=== PATIENT | male | born 1985 | race African-American/Black ===

== ENCOUNTER 2018-12-22 13:45 | Emergency (ER) | payer MEDICARE ==
[~2018-12-22] VITALS: Ht 175.3 cm; Wt 72.7 kg
[2018-12-22 13:49] VITALS: Ht 175.3 cm; Wt 72.7 kg
[2018-12-22] MEDS ORDERED: PREZISTA (13:52)
[2018-12-22 14:15] LABS: BASOPHILS 0.2 % (0-2); EOSINOPHILS 0.4 % (0-7); HEMATOCRIT 25.7 % (42.0-54.0); HEMOGLOBIN 8.1 g/dL (13.5-17.5); IMMATURE GRANULOCYTES 0.2 % (0-5); LYMPHOCYTES 16.9 % (15-50); MCH 27.7 pg (26.0-34.0); MCHC 31.5 g/dL (31.0-37.0); MEAN PLATELET VOLUME 11.4 fL (7.4-10.4); MONOCYTES 5.9 % (2-11); NEUTROPHILS 76.4 % (40-80); PLATELET COUNT 89 10x3/uL (130-400); RBC 2.92 10x6/uL (4.20-6.10); WBC 5.3 10x3/uL (4.8-10.8)
[2018-12-22 14:37] LABS: ALBUMIN 3.5 g/dL (3.4-5.0); ANION GAP 24.1 mmol/L (8-16); BILIRUBIN - TOTAL 0.67 mg/dL (0.2-1.3); CALCIUM 8.4 mg/dL (8.5-10.1); CARBON DIOXIDE 20.8 mmol/L (21.0-32.0); POTASSIUM - SERUM 4.9 mmol/L (3.5-5.1); PROTEIN - SERUM 8.1 g/dL (6.4-8.2)
[2018-12-22 14:58] LABS: PLATELET ESTIMATE DECREASED
[2018-12-22 15:18] LABS: APPEARANCE CLEAR (CLEAR); BILIRUBIN NEGATIVE (NEGATIVE); COLOR STRAW (YELLOW); GLUCOSE 50 mg/dL (NEGATIVE); KETONE NEGATIVE (NEGATIVE); NITRITE NEGATIVE (NEGATIVE); PROTEIN 2+ mg/dL (NEGATIVE); UROBILINOGEN NORMAL (NORMAL)
[2018-12-22 15:19] LABS: WHITE CELLS - URINE 0-5 /hpf (0-5)
[2018-12-22 15:20] LABS: BACTERIA FEW /hpf (NONE SEEN); EPITHELIAL CELLS 0-5 /hpf (0-5)
[2018-12-22] MEDS ORDERED: ZOFRAN ODT4 MG/UDTAB PO (16:18)
[2018-12-22 16:34] VITALS: BP 187/115
== END 2018-12-22 16:34 | disposition home or self-care (01) ==
LOC: D.ER 13:45
PROVIDERS: Emergency Medicine
DX: R11.10 Vomiting, unspecified (principal); R19.7 Diarrhea, unspecified; N18.6 End stage renal disease

== ENCOUNTER 2019-01-13 22:39 | Inpatient (IN) | payer MEDICARE ==
[~2019-01-13] VITALS: Ht 175.3 cm; Wt 69.5 kg
[~2019-01-13 22:39] MED LIST: PREZISTA; ZOFRAN ODT4 MG/UDTAB PO
[2019-01-13 23:29] LABS: ALBUMIN 3.1 g/dL (3.4-5.0); ALKALINE PHOSPHATASE 73 U/L (46-116); ALT (SGPT) 23 U/L (10-68); APTT 32.3 SECONDS (22.8-39.4); BILIRUBIN - TOTAL 0.27 mg/dL (0.2-1.3); CALC OSMOLALITY 298 mosm/kg (275-300); CALCIUM 8.4 mg/dL (8.5-10.1); CARBON DIOXIDE 24.4 mmol/L (21.0-32.0); CHLORIDE - SERUM 102 mmol/L (98-107); CREATININE - SERUM 18.8 mg/dL (0.6-1.3); GLUCOSE 102 mg/dL (74-106); INR 1.1 (0.85-1.17); PROTEIN - SERUM 6.9 g/dL (6.4-8.2); PROTIME 13.7 SECONDS (11.6-15.0); SODIUM 141 mmol/L (136-145); UREA NITROGEN 64 mg/dL (7-18); eGFR NON AFRICAN AMERICAN 3 mL/min (90-120)
[2019-01-13 23:42] LABS: BASOPHILS 0.2 % (0-2); EOSINOPHILS 0.8 % (0-7); HEMATOCRIT 18.7 % (42.0-54.0); HEMOGLOBIN 5.8 g/dL (13.5-17.5); IMMATURE GRANULOCYTES 0.2 % (0-5); LYMPHOCYTES 19.7 % (15-50); MCH 27.5 pg (26.0-34.0); MCV 88.6 fL (80.0-100.0); MEAN PLATELET VOLUME 10.6 fL (7.4-10.4); MONOCYTES 6.1 % (2-11); PLATELET COUNT 152 10x3/uL (130-400); RBC 2.11 10x6/uL (4.20-6.10); RDW 19.1 % (11.5-14.5)
[2019-01-13 23:52] LABS: CKMB 1.8 U/L (0.0-3.6); CREATINE KINASE 224 UL (21-232)
[2019-01-14] VITALS (17 sets, daily range): BP systolic 155–205; BP diastolic 89–121; Ht 175.3 cm; Wt 69.5 kg
[2019-01-14 00:08] LABS: TROPONIN-I 0.112 ng/mL (0.000-0.060)
[2019-01-14 01:05] LABS: PRO BNP 103951 pg/mL (0-125)
[2019-01-14 08:31] LABS: BASOPHILS 0.2 % (0-2); EOSINOPHILS 0.6 % (0-7); HEMATOCRIT 20.9 % (42.0-54.0); IMMATURE GRANULOCYTES 0.2 % (0-5); LYMPHOCYTES 19.3 % (15-50); MCH 27.7 pg (26.0-34.0); MCHC 31.1 g/dL (31.0-37.0); MCV 88.9 fL (80.0-100.0); MEAN PLATELET VOLUME 10.6 fL (7.4-10.4); MONOCYTES 6.1 % (2-11); NEUTROPHILS 73.6 % (40-80); PLATELET COUNT 147 10x3/uL (130-400); RBC 2.35 10x6/uL (4.20-6.10); RDW 18.5 % (11.5-14.5); WBC 6.5 10x3/uL (4.8-10.8)
[2019-01-14 09:00] LABS: HEMOGLOBIN 6.5 g/dL (13.5-17.5)
[2019-01-14 09:07] LABS: CARBON DIOXIDE 20.9 mmol/L (21.0-32.0); CREATININE - SERUM 18.1 mg/dL (0.6-1.3); MAGNESIUM - SERUM 2.6 mg/dL (1.8-2.4); PHOSPHOROUS 8.9 mg/dL (2.5-4.9)
[2019-01-14 09:08] LABS: POTASSIUM - SERUM 4.9 mmol/L (3.5-5.1)
[2019-01-14 09:09] LABS: TROPONIN-I 0.186 ng/mL (0.000-0.060)
[2019-01-14] MEDS ORDERED: NORVASC10 MG PO (11:01)
[2019-01-14] MEDS ORDERED: SENSIPAR30 MG PO (11:02)
[2019-01-14] MEDS ORDERED: MEGACE400 MG/10 PO (11:03)
[2019-01-14] MEDS ORDERED: RETROVIR100 MG PO (11:04)
[2019-01-14] MEDS ORDERED: EMTRIVA200 MG PO (11:07)
[2019-01-14] MEDS ORDERED: PREZISTA800 MG PO (11:11)
[2019-01-14] MEDS ORDERED: MIRALAX17 GM PO (11:13)
[2019-01-14 17:46] LABS: HEMATOCRIT 27.7 % (42.0-54.0); HEMOGLOBIN 9.2 g/dL (13.5-17.5)
[2019-01-14 18:02] LABS: % SATURATION 34 % (15-55); IRON 69 ug/dl (35-150); TOTAL IRON BIND CAPACITY 202 ug/dl (260-445); UNSAT IRON BIND CAPACITY 133 ug/dl (150-375)
[2019-01-14 18:40] LABS: TROPONIN-I 0.166 ng/mL (0.000-0.060)
[2019-01-15 03:30] VITALS: BP 153/90
[2019-01-15 06:44] LABS: ANION GAP 13.8 mmol/L (8-16); CALCIUM 8.2 mg/dL (8.5-10.1); POTASSIUM - SERUM 4.7 mmol/L (3.5-5.1)
[2019-01-15 06:45] LABS: CARBON DIOXIDE 29.9 mmol/L (21.0-32.0); CREATININE - SERUM 13.4 mg/dL (0.6-1.3)
[2019-01-15 07:20] LABS: BASOPHILS 0.2 % (0-2); EOSINOPHILS 1.6 % (0-7); HEMATOCRIT 26.2 % (42.0-54.0); HEMOGLOBIN 8.5 g/dL (13.5-17.5); IMMATURE GRANULOCYTES 0.2 % (0-5); LYMPHOCYTES 24.4 % (15-50); MCH 28.7 pg (26.0-34.0); MCHC 32.4 g/dL (31.0-37.0); MCV 88.5 fL (80.0-100.0); MEAN PLATELET VOLUME 10.8 fL (7.4-10.4); MONOCYTES 11.7 % (2-11); NEUTROPHILS 61.9 % (40-80); PLATELET COUNT 145 10x3/uL (130-400)
[2019-01-15 07:35] LABS: RBC 2.96 10x6/uL (4.20-6.10); WBC 4.4 10x3/uL (4.8-10.8)
[2019-01-15 09:00] VITALS: BP 133/92
[2019-01-15 12:17] VITALS: BP 128/86
[2019-01-15 18:11] VITALS: BP 128/86
[2019-01-15 20:00] VITALS: BP 122/80
[2019-01-16 00:30] VITALS: BP 128/83
[2019-01-16 05:00] VITALS: BP 117/76
[2019-01-16 05:27] LABS: BASOPHILS 0.3 % (0-2); EOSINOPHILS 0.5 % (0-7); HEMATOCRIT 27.3 % (42.0-54.0); HEMOGLOBIN 8.7 g/dL (13.5-17.5); IMMATURE GRANULOCYTES 0.3 % (0-5); LYMPHOCYTES 24.5 % (15-50); MCH 28.7 pg (26.0-34.0); MCHC 31.9 g/dL (31.0-37.0); MCV 90.1 fL (80.0-100.0); MEAN PLATELET VOLUME 10.3 fL (7.4-10.4); NEUTROPHILS 60.4 % (40-80); PLATELET COUNT 127 10x3/uL (130-400); RBC 3.03 10x6/uL (4.20-6.10); RDW 18.1 % (11.5-14.5); WBC 3.9 10x3/uL (4.8-10.8)
[2019-01-16 05:36] LABS: ANION GAP 14.1 mmol/L (8-16); CALCIUM 7.4 mg/dL (8.5-10.1); CARBON DIOXIDE 29.3 mmol/L (21.0-32.0); CREATININE - SERUM 12.1 mg/dL (0.6-1.3); POTASSIUM - SERUM 4.4 mmol/L (3.5-5.1)
[2019-01-16] MEDS ORDERED: EMTRIVA200 MG PO (09:45)
[2019-01-16] MEDS ORDERED: PREZISTA800 MG PO (09:45)
[2019-01-16] MEDS ORDERED: METOPROLOL TART50 MG PO (09:45)
[2019-01-16] MEDS ORDERED: RETROVIR100 MG PO (09:45)
[2019-01-16] MEDS ORDERED: CATAPRES0.2 MG PO (09:46)
[2019-01-16] MEDS ORDERED: HYDROCODON-ACE1 EAC7 PO (09:48)
[2019-01-16] MEDS ORDERED: RENAGEL800 MG PO (09:48)
[2019-01-16] MEDS ORDERED: PROTONIX40 MG PO (09:49)
[2019-01-16] MEDS ORDERED: CARAFATE1 G PO (09:49)
[2019-01-16] MEDS ORDERED: PEPCID40 MG PO (09:50)
[2019-01-16 10:02] VITALS: BP 140/102
[2019-01-16] MEDS ORDERED: MUCINEX600 MG PO (10:05)
--- NOTE | 2019-01-16 13:32 | MORECARE ---
CASE MANAGEMENT DISCHARGE SUMMARY PATIENT: MIKE RUSHING UNIT: [id number] ADM DATE: 01/14/19 AGE: 33 : 89 SEX: M ROOM/BED: D.2112 AUTHOR: MARGARITA,DOC PHYSICIAN: REFERRING PHYSICIAN: RIC TRIPP MD DATE OF SERVICE: 01/16/19 Discharge Plan Patient Name: MIKE RUSHING Facility: [facility]:[place] : 1985 Planned Disposition: Home Anticipated Discharge Date: 01/16/19 Discharge Date: 01/16/2019 Expected LOS: 2 Initial Reviewer: [email or web address] Initial Review Date: 01/16/2019 Generated: 01/16/19 2:32 pm Comments DCP- Discharge Planning Updated by [email or web address]: Raoul Villarreal on 01/16/19 12:[address] Patient Name: MIKE RUSHING Admission Status: ER Accout number: [id number] Admission Date: 01-14-2019 : 1985 Admission Diagnosis: Attending: RIC TRIPP Current LOS: 2 Anticipated DC Date: 01-16-2019 Planned Disposition: Home Primary Insurance: MEDICARE A & B Discharge Planning Comments: CM MET WITH PT IN ROOM TO DISCUSS DISCHARGE PLANNING AND NEEDS. PT REPORTS LIVING AT HOME INDEPENDENTLY WITH HIS SISTER. PT HAS NO MEDICAL EQUIPMENT AND NO OUTSIDE SERVICES ASSISTING IN THE HOME. CM DISCUSSED AVAILABILITY OF HOME HEALTH, REHAB SERVICES AND MEDICAL EQUIPMENT. PT ATTENDS OUTPATIENT DIALYSIS ON MONDAYS AND FRIDAYS, 1130AM, FAMILY TRANSPORTING. PT DENIES DISCHARGE NEEDS, REPORTS HIS FAMILY WILL PICK HIM UP FOR DISCHARGE HOME. VEHICLE DELIVERY WORKER NURSE NOTIFIED. Intensive Care Ambulance Paramedic: Raoul Villarreal DCPIA - Discharge Planning Initial Assessment Updated by [email or web address]: Raoul Villarreal on 01/16/19 1:26 pm * Is the patient Alert and Oriented? Yes * How many steps to enter\exit or inside your home? * PCP NONE DR. SHAH - RENAL * Pharmacy [facility] ON [address] * Preadmission Environment Home with Family * ADLs Independent * Equipment None * Other Equipment NO MEDICAL EQUIPMENT PROVIDER PREFERENCE * List name and contact numbers for known caregivers / representatives who currently or will assist patient after discharge: MYRIAM RUSHING, SISTER, * Verbal permission to speak to the caregivers and representatives has been obtained from the patient. N/A * Community resources currently utilized Other * Please name any agencies selected above. OUTPATIENT DIALYSIS, [facility], M/F, 1130AM, FAMILY DRIVING * Additional services required to return to the preadmission environment? No * Can the patient safely return to the preadmission environment? Yes * Has this patient been hospitalized within the prior 30 days at any hospital? No Patient Name: MIKE RUSHING Page [phone] at 1332 All edits/amendments must be made on the electronic document DICTATION DATE: 01/16/19 1331 WAREHOUSE SORTER: KAYCEE 01/16/19 1331 RPT#: [id number] [place] DATE:01/16/19 STATUS: DIS IN [facility] [address] [place] [address] END OF REPORT
== END 2019-01-16 12:40 | disposition home or self-care (01) | DRG 377 ==
LOC: D.ER 22:39 → D.EDHOLD 01-14 02:00 → OBSVTIME 01-14 02:00 → D.M2 01-14 09:36
PROVIDERS: Family Medicine; Internal Medicine Gastroenterology; ADMIT Internal Medicine; ATTEND Internal Medicine
PROC: 5A1D70Z Performance of Urinary Filtration, Intermittent, Less than 6 Hours Per Day (ICD-10-PCS; 2019-01-14)
PROC: 0DB68ZX Excision of Stomach, Via Natural or Artificial Opening Endoscopic, Diagnostic (ICD-10-PCS; 2019-01-15)
PROC: 0DB58ZX Excision of Esophagus, Via Natural or Artificial Opening Endoscopic, Diagnostic (ICD-10-PCS; 2019-01-15)
PROC: 0DB98ZX Excision of Duodenum, Via Natural or Artificial Opening Endoscopic, Diagnostic (ICD-10-PCS; principal; 2019-01-15 06:04)
DX: K25.4 Chronic or unspecified gastric ulcer with hemorrhage (principal); N18.6 End stage renal disease; B20 Human immunodeficiency virus [HIV] disease; K22.10 Ulcer of esophagus without bleeding; I13.2 Hypertensive heart and chronic kidney disease with heart failure and with stage 5 chronic kidney disease, or end stage renal disease; D64.9 Anemia, unspecified; Z99.2 Dependence on renal dialysis; Z91.15 Patient's noncompliance with renal dialysis; R00.0 Tachycardia, unspecified; E83.39 Other disorders of phosphorus metabolism; N63.10 Unspecified lump in the right breast, unspecified quadrant; E87.5 Hyperkalemia; K31.7 Polyp of stomach and duodenum; K29.80 Duodenitis without bleeding; I50.9 Heart failure, unspecified; Z72.0 Tobacco use

== ENCOUNTER 2019-03-31 09:24 | Emergency (ER) | payer MEDICARE ==
[~2019-03-31] VITALS: Ht 175.3 cm; Wt 70.5 kg
[~2019-03-31 09:24] MED LIST changes: +CARAFATE1 G PO; +CATAPRES0.2 MG PO; +EMTRIVA200 MG PO; +HYDROCODON-ACE1 EAC7 PO; +MEGACE400 MG/10 PO; +METOPROLOL TART50 MG PO; +MIRALAX17 GM PO; +MUCINEX600 MG PO; +NORVASC10 MG PO; +PEPCID40 MG PO; +PREZISTA800 MG PO; +PROTONIX40 MG PO; +RENAGEL800 MG PO; +RETROVIR100 MG PO; +SENSIPAR30 MG PO
[2019-03-31 09:29] VITALS: Ht 175.3 cm; Wt 70.5 kg
[2019-03-31 10:08] LABS: BASOPHILS 0.2 % (0-2); HEMOGLOBIN 7.7 g/dL (13.5-17.5); IMMATURE GRANULOCYTES 0.2 % (0-5); LYMPHOCYTES 22.8 % (15-50); MCH 29.8 pg (26.0-34.0); MCHC 32.1 g/dL (31.0-37.0); MEAN PLATELET VOLUME 11.4 fL (7.4-10.4); MONOCYTES 5.2 % (2-11); NEUTROPHILS 69.6 % (40-80); PLATELET COUNT 131 10x3/uL (130-400); RBC 2.58 10x6/uL (4.20-6.10); WBC 6.1 10x3/uL (4.8-10.8)
[2019-03-31 10:18] LABS: INR 1.02 (0.85-1.17); PROTIME 12.9 SECONDS (11.6-15.0)
[2019-03-31 10:19] LABS: APTT 33.9 SECONDS (22.8-39.4)
[2019-03-31 10:42] LABS: ALBUMIN 3.5 g/dL (3.4-5.0); ALKALINE PHOSPHATASE 65 U/L (46-116); ALT (SGPT) 19 U/L (10-68); BILIRUBIN - TOTAL 0.61 mg/dL (0.2-1.3); CALC OSMOLALITY 284 mosm/kg (275-300); CALCIUM 9.6 mg/dL (8.5-10.1); CARBON DIOXIDE 19.8 mmol/L (21.0-32.0); CHLORIDE - SERUM 98 mmol/L (98-107); CKMB 1.5 U/L (0.0-3.6); CREATINE KINASE 456 UL (21-232); GLUCOSE 88 mg/dL (74-106); PROTEIN - SERUM 7.6 g/dL (6.4-8.2); SODIUM 134 mmol/L (136-145); UREA NITROGEN 63 mg/dL (7-18)
[2019-03-31 10:44] LABS: CREATININE - SERUM 23.7 mg/dL (0.6-1.3); eGFR NON AFRICAN AMERICAN 2 mL/min (90-120)
[2019-03-31 10:45] LABS: MAGNESIUM - SERUM 3.5 mg/dL (1.8-2.4); POTASSIUM - SERUM 7.2 mmol/L (3.5-5.1)
[2019-03-31 11:00] VITALS: BP 170/120
--- NOTE | 2019-03-31 11:34 | NUR ---
CM SPOKE TO DR. STORM WHO STATED THE PATIENT COULD DC POST DIALYSIS IF HE IS MEDICALLY STABLE. DR. STORM TO EVALUATE THE PATIENT IN DIALYSIS. OBSERVATION ADMISSION CANCELED FOR NOW. DR. STORM WILL NOTIFY THE ER IF THE PATIENT NEEDS TO BE ADMITTED POST DIALYSIS.
--- NOTE | 2019-03-31 11:49 | NUR ---
PT LEAVING THE ED FOR DIALYSIS AT THIS TIME. WHEN GIVING MEDICATIONS JUST PRIOR TO PT LEAVING THE ED, PT BECAME DIAPHORETIC WITH N/V. EDP NOTIFIED, IM PHENERGRAN WAS ADMINISTERED. PT ALSO BECAME HYPERTENSIVE WITH HR OF 113, AND BP OF 214/133. EDP NOTIFIED OF CHANGE IN VS. NURSE INSTRUCTED TO ADMINISTER ORDERED MEDS AND TAKE PT TO DIALYSIS UNIT. PT'S SYMPTOMS IMPROVED PRIOR TO LEAVING ED.
--- NOTE | 2019-03-31 13:45 | NUR ---
DIALYSIS NURSE CALLED TO REPORT THAT THE PATIENT IS DIAPHORETIC AND STATING HE IS HUNGRY, WENT DOWN TO CHECK THE PATIENT'S BLOOD GLUCOSE AND RESULTED 46, DIALYSIS NURSE WAS ON THE PHONE WITH DR STORM AND RECEIVED ORDERS FOR 1 AMP D50 AND CLONIDINE 0.1 MG (BP HAS ALSO BEEN ELEVATED DURING DIALYSIS) ADMINISTERED IN DIALYSIS AND CHARTED, ER PROVIDER NOTIFIED OF SITUATION.
--- NOTE | 2019-03-31 13:51 | NUR ---
PT'S NURSE PRESENT UPON ARRIVAL FOR SUICIDE ASSESSMENT. UNABLE TO SCREEN AT THIS TIME DUE TO LOW BLOOD SUGAR. PT'S NURSE WILL CONTACT FOR SCREENING, WHEN PT'S BLOOD SUGAR LEVEL IS WITHIN NORMAL RANGE.
--- NOTE | 2019-03-31 15:57 | NUR ---
NURSE PRESENT UPON ARRIVAL FOR SUICIDE ASSESSMENT. DR. REYNOLDS NOTIFIED AND REVIEWED PT'S BEHAVIOR AND ASSESSMENT RESULTS. PT IS A LOW RISK PER DR. REYNOLDS. DR. REYNOLDS STATED TO GIVE RESOURCES TO PT AT TIME OF DISCHARGE. NO FURTHER ORDERS AT THIS TIME. RESOURCES REVIEWED WITH PT AND HE VERBALIZED UNDERSTANDING.
--- NOTE | 2019-03-31 16:55 | NUR ---
PT RETURNED FROM DIALYSIS AT THIS TIME IN STABLE CONDITION.
[2019-03-31 17:41] VITALS: BP 167/107
== END 2019-03-31 17:41 ==
LOC: OBSVTIME → D.ER 09:24 → D.M2 11:26 → OBSVTIME 11:33 → D.ER 17:41
PROVIDERS: Family Medicine
DX: I12.0 Hypertensive chronic kidney disease with stage 5 chronic kidney disease or end stage renal disease (principal); N18.6 End stage renal disease; Z91.15 Patient's noncompliance with renal dialysis; F17.210 Nicotine dependence, cigarettes, uncomplicated; F32.9 Major depressive disorder, single episode, unspecified

== ENCOUNTER 2019-07-04 02:51 | Inpatient (IN) | payer MEDICARE ==
[~2019-07-04] VITALS: Ht 175.3 cm; Wt 70.5 kg
[2019-07-04] VITALS (19 sets, daily range): BP systolic 135–180; BP diastolic 77–113; Ht 175.3 cm; Wt 70.5 kg
[2019-07-04 03:20] LABS: BASOPHILS 0.1 % (0-2); EOSINOPHILS 0.7 % (0-7); HEMATOCRIT 26.5 % (42.0-54.0); HEMOGLOBIN 8.1 g/dL (13.5-17.5); IMMATURE GRANULOCYTES 0.3 % (0-5); LYMPHOCYTES 16.2 % (15-50); MCH 29.6 pg (26.0-34.0); MCHC 30.6 g/dL (31.0-37.0); MCV 96.7 fL (80.0-100.0); MEAN PLATELET VOLUME 10.4 fL (7.4-10.4); MONOCYTES 10.4 % (2-11); NEUTROPHILS 72.3 % (40-80); RBC 2.74 10x6/uL (4.20-6.10); WBC 7.6 10x3/uL (4.8-10.8)
[2019-07-04 03:21] LABS: PLATELET COUNT 159 10x3/uL (130-400)
[2019-07-04 03:24] LABS: PROTIME 12.7 SECONDS (11.6-15.0)
[2019-07-04 03:28] LABS: ALBUMIN 3.5 g/dL (3.4-5.0); ALKALINE PHOSPHATASE 74 U/L (46-116); ALT (SGPT) 20 U/L (10-68); BILIRUBIN - TOTAL 0.38 mg/dL (0.2-1.3); CALC OSMOLALITY 291 mosm/kg (275-300); CALCIUM 8.2 mg/dL (8.5-10.1); CHLORIDE - SERUM 101 mmol/L (98-107); GLUCOSE 89 mg/dL (74-106); POTASSIUM - SERUM 5.2 mmol/L (3.5-5.1); PROTEIN - SERUM 8.1 g/dL (6.4-8.2); SODIUM 138 mmol/L (136-145); UREA NITROGEN 61 mg/dL (7-18)
[2019-07-04 03:29] LABS: CREATININE - SERUM 20.5 mg/dL (0.6-1.3); eGFR NON AFRICAN AMERICAN 3 mL/min (90-120)
[2019-07-04 03:40] LABS: CKMB 1.5 U/L (0.0-3.6); CREATINE KINASE 271 UL (21-232); PRO BNP 38488 pg/mL (0-125); TROPONIN-I 0.024 ng/mL (0.000-0.060)
--- NOTE | 2019-07-04 04:43 | NUR ---
RESTING IN ROOM QUIETLY AT THIS TIME RESP EVEN AND UNLABORED
--- NOTE | 2019-07-04 07:30 | NUR ---
REPORT RECEIVED. PT RESTING IN BED WITH EYES CLOSED. ON BIPAP. HAS BEEN UP TO BEDSIDE COMMODE FOR BM.
--- NOTE | 2019-07-04 08:52 | NUR ---
BREAKFAST TRAY HAS BEEN PROVIDED TO PATIENT. ATE A FEW BITES OF EGGS. REQUESTED A SPRITE; PROVIDED. IS CURRENTLY ON 10L HFNC.
--- NOTE | 2019-07-04 09:54 | NUR ---
DIALYSIS NURSE AT BEDSIDE SETTING UP FOR PATIENT
--- NOTE | 2019-07-04 10:19 | NUR ---
JUSTICE PROCESS TECH WITH RENAL AT BEDSIDE. PT C/O SHORTNESS OF BREATH. WAS ON HF NC 10L AND WITH INCREASE IN RATE REMAINED 89%. PLACED BACK ON BIPAP AND SATS INCREASED TO 94%. C/O HEADACHE. BP IS ELEVATED.
--- NOTE | 2019-07-04 12:19 | NUR ---
Rehab Prescreening Consult recieved and the chart has been reviewed. He is a new admit and has not had any therapy. At this time he is not medically stable for the required 3 hrs of therapy 5 days a week that Medicare requires. Elena Anthony RN Clinical liaison, Rehab
--- NOTE | 2019-07-04 18:10 | MORECARE ---
CASE MANAGEMENT DISCHARGE SUMMARY PATIENT: MIKE RUSHING UNIT: [id number] ADM DATE: 07/04/19 AGE: 33 : 87 SEX: M ROOM/BED: D.2301 AUTHOR: DEANDRE AVILA PHYSICIAN: REFERRING PHYSICIAN: MAX PRYOR MD DATE OF SERVICE: 07/04/19 Discharge Plan Patient Name: MIKE RUSHING Facility: [facility]:[place] : 1985 Planned Disposition: Home Anticipated Discharge Date: Discharge Date: Expected LOS: Initial Reviewer: [email or web address] Initial Review Date: 07/04/2019 Generated: 07/04/19 7:09 pm Comments DCP- Discharge Planning Updated by [id number]: Rain Mosqueda on 07/04/19 5:[address] Patient Name: MIKE RUSHING Admission Status: ER Accout number: [id number] Admission Date: 07-04-2019 : 1985 Admission Diagnosis:HYP HRT CHR KDNY DIS W HRT FAIL AND W STG 5 CHR KDNY/ Attending: MAX PRYOR Current LOS: 1 Anticipated DC Date: Planned Disposition: Home Primary Insurance: MEDICARE A & B Discharge Planning Comments: CM met with patient at bedside after explaining CM role and obtaining verbal consent. Patient lives at home with his sister Myriam where he is independent with his care and plans to return there upon discharge. Patient feels this would be a safe discharge. CM discussed availability / needs of home health and medical equipment. Patient has dialysis MWF @ [facility] @ 0845. Patient denies any discharge needs at this time. Patient states he will have his family drive him home upon discharge. CM will continue to follow and assist as needed with discharge planning / needs. Human Resources Benefits Administrator: Rain Mosqueda DCPIA - Discharge Planning Initial Assessment Updated by [email or web address]: Rain Mosqueda on 07/04/19 6:06 pm * Is the patient Alert and Oriented? Yes * How many steps to enter\exit or inside your home? * PCP NO PCP * [facility] * Preadmission Environment Home with Family * ADLs Independent * Equipment None * List name and contact numbers for known caregivers / representatives who currently or will assist patient after discharge: MYRIAM RUSHING - SISTER- [phone] * Verbal permission to speak to the caregivers and representatives has been obtained from the patient. Yes * Community resources currently utilized None * Additional services required to return to the preadmission environment? No * Can the patient safely return to the preadmission environment? Yes * Has this patient been hospitalized within the prior 30 days at any hospital? No Patient Name: MIKE RUSHING Page 11298 at 1810 All edits/amendments must be made on the electronic document DICTATION DATE: 07/04/191808 OFFLINE EDITOR: KAYCEE 07/04/191808 RPT#: [id number] DC DATE: STATUS: ADM IN [facility] [address] [place] [address] END OF REPORT
--- NOTE | 2019-07-04 19:30 | NUR ---
RECEIVED CARE OF PT, ASSESSMENT PER FLOWSHEET. PT ALERT AND ORIENTED X 4, HR SR ON CM, TEMP OF 101.1 NOTED-WILL GIVE TYLENOL. DIET LEMON-CHICKEN RANCH PROVIDED PER REQUEST AND CUP OF ICE. DENIES ANY OTHER NEEDS, CALL LIGHT IN REACH.
--- NOTE | 2019-07-04 21:30 | NUR ---
PT VISITOR AT BEDSIDE, DRINK PROVIDED PER REQUEST, BOTH DENY ANY NEEDS AT THIS TIME.
--- NOTE | 2019-07-04 23:30 | NUR ---
REASSESSMENT PER FLOWSHEET, NO ACUTE CHANGES NOTED, PT REMAINS ON BIPAP, CONT POC.
[2019-07-05] VITALS (24 sets, daily range): BP systolic 123–169; BP diastolic 74–108
--- NOTE | 2019-07-05 01:21 | NUR ---
PT RESTING IN BED WITH EYES CLOSED, VSS, CONT POC.
--- NOTE | 2019-07-05 03:50 | NUR ---
PT RESTING IN BED WITH EYES CLOSED, VSS, CONT POC.
--- NOTE | 2019-07-05 05:44 | NUR ---
PT C/O NAUSEA, PRN ZOFRAN ODT 4MG ADMINISTERED PER MD ORDER.
--- NOTE | 2019-07-05 07:01 | NUR ---
UP IN BED AWAKE AT THIS TIME. NO ACUTE DISTRESS NOTED. VSS. CALL LIGHT IN REACH. WILL CONTINUE PLAN OF CARE.
[2019-07-05 08:27] LABS: BASOPHILS 0.2 % (0-2); EOSINOPHILS 0.9 % (0-7); IMMATURE GRANULOCYTES 0.2 % (0-5); LYMPHOCYTES 14.2 % (15-50); MCH 28.9 pg (26.0-34.0); MCHC 29.8 g/dL (31.0-37.0); MCV 97.1 fL (80.0-100.0); MEAN PLATELET VOLUME 10.8 fL (7.4-10.4); MONOCYTES 7.2 % (2-11); NEUTROPHILS 77.3 % (40-80); RBC 2.04 10x6/uL (4.20-6.10); RDW 16.8 % (11.5-14.5); WBC 5.7 10x3/uL (4.8-10.8)
[2019-07-05 08:28] LABS: HEMATOCRIT 19.8 % (42.0-54.0); PLATELET COUNT 111 10x3/uL (130-400)
[2019-07-05 08:29] LABS: HEMOGLOBIN 5.9 g/dL (13.5-17.5)
[2019-07-05 08:36] LABS: ALBUMIN 2.8 g/dL (3.4-5.0); BILIRUBIN - TOTAL 0.61 mg/dL (0.2-1.3); CALCIUM 7.9 mg/dL (8.5-10.1); CREATININE - SERUM 16.5 mg/dL (0.6-1.3)
--- NOTE | 2019-07-05 09:33 | NUR ---
PER JEROMY CHICK SEXER FOR RENAL. ADMIN 2 U PRBC AND CANCEL TRANSFER. SINCE H&H IS 5.9 & 19.8.
--- NOTE | 2019-07-05 10:05 | NUR ---
BED BATH OFFERED TO PT AT THIS TIME, PT REFUSED. WILL CONTINUE PLAN OF CARE.
--- NOTE | 2019-07-05 11:01 | NUR ---
WILL ADMIN 2 U PRBC WITH DIALYSIS NURSE WHEN DIALYSIS NURSE IS READY. NO ACUTE DISTRESS NOTED. VSS. WILL CONTINU EPLAN OF CAR.E
--- NOTE | 2019-07-05 12:24 | NUR ---
PT CURRENTLY REIEVING DIALYSIS, STATED HE IS WAITING TO EAT UNTIL AFTER DIALYSIS COMPLETE. WILL ADMIN SCHEDULED MEDS WHEN PT EATS LUNCH. (RENAGEL AND CAROMA). VSS. WILL CONTINUE PLAN OF CARE.
--- NOTE | 2019-07-05 13:24 | NUR ---
RECIEVING 2 U PRBC VIA DIALYSIS. VSS. WILL CONTINUE PLAN OF CARE.
[2019-07-05 15:44] LABS: HEMATOCRIT 26.9 % (42.0-54.0); HEMOGLOBIN 8.5 g/dL (13.5-17.5)
--- NOTE | 2019-07-05 15:52 | NUR ---
PER RENAL PHYSICIAN, OKAY TO TRANSFER PT TO FLOOR.
--- NOTE | 2019-07-05 16:19 | NUR ---
TEMP OF 102 NOTED, RENAL PHYSICIAN, DR AYERS, NOTIFIED OF THIS. STATED TO CANCEL TRANSFER ORDER TO KEEP PT OVERNIGHT, ADMIN PRN TYLENOL, OBTAIN BLOOD CULTURES X 2, AND START VANC AND ZOSYN. ORDERS PLCED. PT RESTING IN BED. RESPIRATIONS STEADY AND UNLABORED. AWAKENS WHEN SPOKEN TO. WILL CONTINUE PLAN OF CARE.
[2019-07-05 16:51] LABS: HEMATOCRIT 25.6 % (42.0-54.0); HEMOGLOBIN 8.2 g/dL (13.5-17.5)
--- NOTE | 2019-07-05 18:35 | NUR ---
UP IN BED AWAKE AT THIS TIME. NO ACUTE DISTRESS NOTED. VSS. WILL CONTINUE PLAN OF CARE.
--- NOTE | 2019-07-05 19:15 | NUR ---
RESUMED CARE OF PT, ASSESSMENT PER FLOWSHEET. PT ALERT AND ORIENTED X 4, ON 4L HFNC, HR SR ON CM, ICE WATER PROVIDED PER REQUEST, WILL MONITOR.
[2019-07-05 21:06] LABS: HEMATOCRIT 22.7 % (42.0-54.0)
[2019-07-05 21:09] LABS: HEMOGLOBIN 7.1 g/dL (13.5-17.5)
--- NOTE | 2019-07-05 21:10 | NUR ---
NO VISITORS PRESENT AT THIS TIME, SNACK PROVIDED PER PT REQUEST, CONT TO MONITOR.
--- NOTE | 2019-07-05 21:17 | NUR ---
DR AYERS NOTIFED REGARDING CRITICAL HGB, NEW ORDERS RECEIVED.
--- NOTE | 2019-07-05 23:15 | NUR ---
REASSESSMENT PER FLOWSHEET, NO ACUTE CHANGES NOTED. PT REFUSED BATH AT THIS TIME, INSTRUCTED TO CALL IF HE CHANGES HIS MIND. PT VERBALIZED UNDERSTANDING, CALL LIGHT IN REACH.
[2019-07-06] VITALS (9 sets, daily range): BP systolic 120–176; BP diastolic 79–90
--- NOTE | 2019-07-06 01:14 | NUR ---
ASSISTED PT TO BSC, VOIDED, BACK TO BED. STOOL SAMPLE COLLECTED AND SENT TO LAB PER MD ORDER.
--- NOTE | 2019-07-06 03:43 | NUR ---
PT RESTING IN BED, LAB AT BEDSIDE FOR AM DRAW, DENIES ANY NEEDS AT THIS TIME.
[2019-07-06 04:05] LABS: HEMATOCRIT 24.1 % (42.0-54.0); HEMOGLOBIN 7.6 g/dL (13.5-17.5)
--- NOTE | 2019-07-06 04:26 | NUR ---
SBP NOTED TO BE IN 170'S, PRN PO CLONIDINE 0.2 MG ADMINISTERED PER MD ORDER, WILL MONITOR FOR DESIRED EFFECT.
--- NOTE | 2019-07-06 08:43 | NUR ---
SITTING UP ON SIDE OF BED EATING BREAKFAST AT THIS TIME. NO ACUTE DISTRESS NOTED. VSS. PER RENAL LEGAL ARCHIVIST, IF H&H REMAINS STABLE THEN PT OKAY TO TRANSFER TO FLOOR. WILL CONTINUE PLAN OF CARE.
--- NOTE | 2019-07-06 10:11 | NUR ---
DR GALARZA HERE TO SEE PT. NO ACUTE DISTRESS NOTED. VSS. WILL CONTINUE PLAN OF CARE.
[2019-07-06 10:14] LABS: HEMATOCRIT 23.5 % (42.0-54.0)
[2019-07-06 10:17] LABS: HEMOGLOBIN 7.4 g/dL (13.5-17.5)
[2019-07-06 10:35] LABS: INR 1.17 (0.85-1.17); PROTIME 14.4 SECONDS (11.6-15.0)
[2019-07-06 10:36] LABS: APTT 40.5 SECONDS (22.8-39.4)
[2019-07-06 10:52] LABS: % SATURATION 11 % (15-55); IRON 20 ug/dl (35-150); TOTAL IRON BIND CAPACITY 168 ug/dl (260-445); UNSAT IRON BIND CAPACITY 148 ug/dl (150-375)
--- NOTE | 2019-07-06 11:12 | NUR ---
DR GALARZA PAGED REGARDING CLARIFICATION OF VITAMIN B12 ORDER PLACED.
--- NOTE | 2019-07-06 12:12 | NUR ---
NOTED PT TO JENNA TO 2109 PER RENAL ORDER. REPORT CALLED TO RECIEVING NURSE. WILL TRANSFER PT AFTER CLARIFYING WITH DR GALARZA REGARDING VITAMIN B12 ORDER, WILL PAGE AGAIN. VSS. WILL CONTINUE PLAN OF CARE.
--- NOTE | 2019-07-06 13:27 | NUR ---
TRANSFERRED TO ROOM 2109 AT THIS TIME VIA WHEELCHAIR ACCOMPANIED BY HOSPITAL STAFF. PT TRANSFERRED WITH ALL PERSONAL ITEMS. NO ACUTE DISTRESS NOTED. NO FURTHER ACTIONS.
--- NOTE | 2019-07-06 13:38 | NUR ---
PT AWAKE AND ORIENTED, ROLLED INTO ROOM VIA WHEELCHIAR. C/O NOT BEING ABLE TO GO OUTSIDE AND GET FRESH AIR. EXPLAINED MULTIPLE TIMES WHY HE CAN NOT. CL IN REACH, RX2.
[2019-07-06 15:59] LABS: HEMOGLOBIN 6.6 g/dL (13.5-17.5)
--- NOTE | 2019-07-06 17:49 | NUR ---
STARTED FIRST UNIT OF BLOOD, PT TOLERATING WELL.
--- NOTE | 2019-07-06 18:19 | NUR ---
PT AWAKE AND ORIENTED, TOLERATING BLOOD WELL. NO COMPLAINTS/COCNERNS. ATTEMTPED TO GO TO VENDING MACHINE BUT HAD TO HAVE A WHEELCHAIR BACK, STATES IT WAS SUPER TIRERING FOR HIM. CL IN REACH,S RX2.
[2019-07-06 21:06] LABS: HEMATOCRIT 26.1 % (42.0-54.0)
[2019-07-06 21:07] LABS: HEMOGLOBIN 8.3 g/dL (13.5-17.5)
--- NOTE | 2019-07-06 21:47 | NUR ---
INITIAL ROUNDS COMPLETED AT 1915 HRS. PT DENIED ANY DISCOMFORT. UNIT OF PRBC'S INFUSING. PRBC'S INFUSED AT 1945 HRS. NO REACTION NOTED. ASSESSMENT COMPLETED AT 1949 HRS. BP ELEVATED 176/90. LAVD WITH GOOD BRUIT AND THRILL. IV TO RAC SL. O2 2LHF O2. LUNGS DIMINISHED IN BASES BILAT. MEYER. ABD SOFT WITH ACTIVE BS NOTED. PM MEDS GIVEN. PT CURRENTLY WATCHING TV. SR UP X2, CALL LIGHT WITHIN REACH.
--- NOTE | 2019-07-06 23:38 | NUR ---
PT AWAKE; NO DISTRESS NOTE. ADDITINAL BLANKET GIVEN NH REQUEST. CALL LIGHT WITHIN REACH.
[2019-07-07] VITALS: BP 161/76
--- NOTE | 2019-07-07 01:57 | NUR ---
PT RESTING WITH EYES CLOSED. RESP EVEN AND REGULAR. SR UPX2, CALL LIGHT WITHIN REACH.
[2019-07-07 03:13] LABS: HEMATOCRIT 25.7 % (42.0-54.0); HEMOGLOBIN 8.3 g/dL (13.5-17.5)
--- NOTE | 2019-07-07 04:25 | NUR ---
PT AWAKE; DENIES ANY DISCOMFORT. CALL LIGHT WITHIN REACH.
[2019-07-07 04:30] VITALS: BP 169/76
--- NOTE | 2019-07-07 06:20 | NUR ---
VSS THIS AM. PT DENIED ANY DISCOMFORT. PT IN WHEELCAHIR TO GET SOME FRESH AIR. NEEDS MET; WILL CONTINUE TO MONITOR.
--- NOTE | 2019-07-07 07:35 | NUR ---
PT AWAKE AND ORIENTED, C/O COUGH WILL BRING COUGH MEDICINE. NO COMPLAINTS/CONCERNS, ALL QUESTIONS ANSWERED. CL IN REACH,SRX2.
[2019-07-07 08:08] VITALS: BP 193/94
--- NOTE | 2019-07-07 08:31 | MORECARE ---
CASE MANAGEMENT DISCHARGE SUMMARY PATIENT: MIKE RUSHING UNIT: [id number] ADM DATE: 07/04/19 AGE: 33 : 89 SEX: M ROOM/BED: D.2105 AUTHOR: DEANDRE AVILA PHYSICIAN: REFERRING PHYSICIAN: MAX PRYOR MD DATE OF SERVICE: 07/07/19 Discharge Plan Patient Name: MIKE RUSHING Facility: [facility]:[place] : 1985 Planned Disposition: Home Anticipated Discharge Date: Discharge Date: Expected LOS: Initial Reviewer: [email or web address] Initial Review Date: 07/04/2019 Generated: 07/07/19 9:30 am DCP- Discharge Planning Updated by [email or web address]: Rain Mosqueda on 07/04/19 5:[address] Patient Name: MIKE RUSHING Admission Status: ER Accout number: [id number] Admission Date: 07-04-2019 : 1985 Admission Diagnosis:HYP HRT CHR KDNY DIS W HRT FAIL AND W STG 5 CHR KDNY/ Attending: MAX PRYOR Current LOS: 1 Anticipated DC Date: Planned Disposition: Home Primary Insurance: MEDICARE A & B Discharge Planning Comments: CM met with patient at bedside after explaining CM role and obtaining verbal consent. Patient lives at home with his sister Myriam where he is independent with his care and plans to return there upon discharge. Patient feels this would be a safe discharge. CM discussed availability / needs of home health and medical equipment. Patient has dialysis MWF @ [facility] @ 0845. Patient denies any discharge needs at this time. Patient states he will have his family drive him home upon discharge. CM will continue to follow and assist as needed with discharge planning / needs. Cable Tool Operator: Rain Mosqueda DCPIA - Discharge Planning Initial Assessment Updated by [email or web address]: Rain Mosqudea on 07/04/19 6:06 pm * Is the patient Alert and Oriented? Yes * How many steps to enter\exit or inside your home? * PCP NO PCP * Pharmacy [facility] * Preadmission Environment Home with Family * ADLs Independent * Equipment None * List name and contact numbers for known caregivers / representatives who currently or will assist patient after discharge: MYRIAM RUSHING - SISTER- [phone] * Verbal permission to speak to the caregivers and representatives has been obtained from the patient. Yes * Community resources currently utilized None * Additional services required to return to the preadmission environment? No * Can the patient safely return to the preadmission environment? Yes * Has this patient been hospitalized within the prior 30 days at any hospital? No Last DP export: 07/04/19 5:10 p Patient Name: MIKE RUSHING Page 18038 at 0831 All edits/amendments must be made on the electronic document DICTATION DATE: 07/07/19829 HARVEST MANAGER: KAYCEE 07/07/19829 RPT#: [id number] DC DATE: STATUS: ADM IN [facility] [address] [place] [address] END OF REPORT
[2019-07-07 10:06] LABS: HEMATOCRIT 26.5 % (42.0-54.0); HEMOGLOBIN 8.6 g/dL (13.5-17.5)
[2019-07-07 11:54] VITALS: BP 136/94
--- NOTE | 2019-07-07 13:57 | NUR ---
Nutrition Follow-up: Good/fair appetite/PO intake. Does not like Renal ADA diet and wants it liberalized. Informed pt that current diet is an MD order and can only be liberalized by MD; pt v/u. Diet: Renal ADA PO intake: 47% avg x 8 meals Wt: 155# Last BM: 07/07 Labs reviewed Meds noted: Megace, Sensipar, Renagel -Will add dental soft to diet order 2/2 pt's report of some difficulty chewing. -[place] food preferences within diet restrictions. -RD following.
--- NOTE | 2019-07-07 15:12 | MORECARE ---
CASE MANAGEMENT DISCHARGE SUMMARY PATIENT: MIKE RUSHING UNIT: [id number] ADM DATE: 07/04/19 AGE: 33 : 89 SEX: M ROOM/BED: D.2108 AUTHOR: DEANDRE AVILA PHYSICIAN: REFERRING PHYSICIAN: MAX PRYOR MD DATE OF SERVICE: 07/07/19 Discharge Plan Patient Name: MIKE RUSHING Facility: [facility]:[place] : 1985 Planned Disposition: Home Anticipated Discharge Date: Discharge Date: Expected LOS: Initial Reviewer: [email or web address] Initial Review Date: 07/04/2019 Generated: 07/07/19 4:11 pm DCP- Discharge Planning Updated by [email or web address]: Rain Mosqueda on 07/04/19 5:[address] Patient Name: MIKE RUSHING Admission Status: ER Accout number: [id number] Admission Date: 07-04-2019 : 1985 Admission Diagnosis:HYP HRT CHR KDNY DIS W HRT FAIL AND W STG 5 CHR KDNY/ Attending: MAX PRYOR Current LOS: 1 Anticipated DC Date: Planned Disposition: Home Primary Insurance: MEDICARE A & B Discharge Planning Comments: CM met with patient at bedside after explaining CM role and obtaining verbal consent. Patient lives at home with his sister Myriam where he is independent with his care and plans to return there upon discharge. Patient feels this would be a safe discharge. CM discussed availability / needs of home health and medical equipment. Patient has dialysis MWF @ [facility] @ 0845. Patient denies any discharge needs at this time. Patient states he will have his family drive him home upon discharge. CM will continue to follow and assist as needed with discharge planning / needs. Packing Attendant: Rain Mosqueda DCPIA - Discharge Planning Initial Assessment Updated by [email or web address]: Rain Mosqueda on 07/04/19 6:06 pm * Is the patient Alert and Oriented? Yes * How many steps to enter\exit or inside your home? * PCP NO PCP * Pharmacy [facility] * Preadmission Environment Home with Family * ADLs Independent * Equipment None * List name and contact numbers for known caregivers / representatives who currently or will assist patient after discharge: MYRIAM RUSHING - SISTER- [phone] * Verbal permission to speak to the caregivers and representatives has been obtained from the patient. Yes * Community resources currently utilized None * Additional services required to return to the preadmission environment? No * Can the patient safely return to the preadmission environment? Yes * Has this patient been hospitalized within the prior 30 days at any hospital? No Last DP export: 07/07/19 7:31 a Patient Name: MIKE RUSHING Page [phone] at 1512 All edits/amendments must be made on the electronic document DICTATION DATE: 07/07/191510 PUBLISHING AGENT: KAYCEE 07/07/191510 RPT#: [id number] DC DATE: STATUS: ADM IN [facility] [address] [place] [address] END OF REPORT
--- NOTE | 2019-07-07 15:24 | MORECARE ---
CASE MANAGEMENT DISCHARGE SUMMARY PATIENT: MIKE RUSHING UNIT: [id number] ADM DATE: 07/04/19 AGE: 33 : 89 SEX: M ROOM/BED: D.2109 AUTHOR: MARGARITA,DOC PHYSICIAN: REFERRING PHYSICIAN: MAX PRYOR MD DATE OF SERVICE: 07/07/19 Discharge Plan Patient Name: MIKE RUSHING Facility: [facility]:[place] : 1985 Planned Disposition: Home Anticipated Discharge Date: Discharge Date: Expected LOS: Initial Reviewer: [id number] Initial Review Date: 07/04/2019 Generated: 07/07/19 4:23 pm Comments DCP- Discharge Planning Updated by [email or web address]: Raoul Harrison on 07/07/19 2:[address] Patient Name: MIKE RUSHING Encounter No: [id number] : 1985 Primary Insurance: MEDICARE A & B Anticipated DC Date: Planned Disposition: Home DCP follow-up note: CM RECEIVED REQUEST TO SEE PT REGARDING NEED OF THE COURT TO BE NOTIFIED OF PT'S HOSPITAL ADMISSION. CM MET WITH PT IN ROOM, PT INFORMED CM THAT HE HAS TRAFFIC COURT IN [place] [address] ON 07-08-19 AND WOULD LIKE PROOF OF HOSPITAL ADMISSION FAXED TO THE COURT. CM EXPLAINED THAT CM WILL FAX LETTER TOMORROW IF PT IS IN [facility] TOMORROW MORNING. PT IN AGREEMENT WITH PLAN. PT IS ALSO IN AGREEMENT WITH TRANSFER TO [facility] IN [place], IF NEEDED, THEY DOCTORS HERE ARE NOT ABLE TO DETERMINE WHERE HE IS BLEEDING FROM AND HE HAS HAD THREE BAGS OF BLOOD OVER THE WEEKEND. CM EDUCATED PT ON HOSPTIAL TRANSFER PROCESS AND INFORMED PT THAT THE DOCTOR WILL DISCUSS THIS OPTION MORE WITH PT IF THE MEDICAL TEAM FEELS IT TO BE NECESSARY. IF PHYSICIAN DETERMINES THAT PT NEEDS TRANSFERRED TO [facility] IN [place], PT IN AGREEMENT. CM TO FAX LETTER TO [facility] ON 07-08-19 TO SHOW PT'S INPATIENT HOSPITAL STATUS IF PT IS STILL AT [facility] AT THAT TIME. RAOUL HARRISON, CASE MANAGEMENT DCP- Discharge Planning Updated by [email or web address]: Rain Mosqueda on 07/04/19 5:[address] Patient Name: MIKE RUSHING Admission Status: ER Accout number: [id number] Admission Date: 07-04-2019 : 1985 Admission Diagnosis:HYP HRT CHR KDNY DIS W HRT FAIL AND W STG 5 CHR KDNY/ Attending: MAX PRYOR Current LOS: 1 Anticipated DC Date: Planned Disposition: Home Primary Insurance: MEDICARE A & B Discharge Planning Comments: CM met with patient at bedside after explaining CM role and obtaining verbal consent. Patient lives at home with his sister Myriam where he is independent with his care and plans to return there upon discharge. Patient feels this would be a safe discharge. CM discussed availability / needs of home health and medical equipment. Patient has dialysis MWF @ [facility] @ 0845. Patient denies any discharge needs at this time. Patient states he will have his family drive him home upon discharge. CM will continue to follow and assist as needed with discharge planning / needs. Bicycle Messenger: Rain Mosqueda DCPIA - Discharge Planning Initial Assessment Updated by [email or web address]: Rain Mosqueda on 07/04/19 6:06 pm * Is the patient Alert and Oriented? Yes * How many steps to enter\exit or inside your home? * PCP NO PCP * Pharmacy [facility] * Preadmission Environment Home with Family * ADLs Independent * Equipment None * List name and contact numbers for known caregivers / representatives who currently or will assist patient after discharge: MYRIAM RUSHING - SISTER- [phone] * Verbal permission to speak to the caregivers and representatives has been obtained from the patient. Yes * Community resources currently utilized None * Additional services required to return to the preadmission environment? No * Can the patient safely return to the preadmission environment? Yes * Has this patient been hospitalized within the prior 30 days at any hospital? No Last DP export: 07/07/19 2:12 p Patient Name: MIKE RUSHING Page 53523 at 1524 All edits/amendments must be made on the electronic document DICTATION DATE: 07/07/191523 PEDODONTIST: KAYCEE 07/07/19 1524 RPT#: [id number] DC DATE: STATUS: ADM IN [facility] [address] [place] [address] END OF REPORT
[2019-07-07 16:13] VITALS: BP 190/95
--- NOTE | 2019-07-07 17:32 | NUR ---
I have reviewed this patient and I concur with the Shift Assessment completed by the Licensed Practical Nurse today this shift.
[2019-07-07 17:33] LABS: HEMOGLOBIN 8.9 g/dL (13.5-17.5)
--- NOTE | 2019-07-07 19:30 | NUR ---
PT ALERT, VOICES NEEDS, LEFT AV FISTULA WITH BRUIT PRESENT, O2 @ 1L VIA N/C, R PIV INTACT WITH IRON INFUSING, OOB AD BRADY, NO C/O
[2019-07-07 20:00] VITALS: BP 185/98
[2019-07-07 22:29] LABS: HEMATOCRIT 25.6 % (42.0-54.0); HEMOGLOBIN 8.4 g/dL (13.5-17.5)
[2019-07-08 03:59] LABS: HEMATOCRIT 26.1 % (42.0-54.0); HEMOGLOBIN 8.6 g/dL (13.5-17.5)
[2019-07-08 04:30] VITALS: BP 194/96
--- NOTE | 2019-07-08 07:22 | NUR ---
REPORT RECEIVED. WILL CONTINUE WITH POC. PT CURRENTLY LYING ON LEFT SIDE. CALL LIGHT W/I REACH. PT IS AAO AND UP AD BRADY. RR EVEN AND UNLABORED ON 1L 02. R.AC PIV IS SALINE LOCKED. PT DENIES ANY NEEDS. WILL CTM.
[2019-07-08 07:35] VITALS: BP 182/93
--- NOTE | 2019-07-08 08:48 | MORECARE ---
CASE MANAGEMENT DISCHARGE SUMMARY PATIENT: MIKE RUSHING UNIT: [id number] ADM DATE: 07/04/19 AGE: 33 : 87 SEX: M ROOM/BED: D.2109 AUTHOR: MARGARITA,DOC PHYSICIAN: REFERRING PHYSICIAN: MAX PRYOR MD DATE OF SERVICE: 07/08/19 Discharge Plan Patient Name: MIKE RUSHING Facility: [facility]:[place] : 1985 Planned Disposition: Home Anticipated Discharge Date: Discharge Date: Expected LOS: Initial Reviewer: [id number] Initial Review Date: 07/04/2019 Generated: 07/08/19 9:47 am Comments DCP- Discharge Planning Updated by [email or web address]: Raoul Harrison on 07/08/19 7:[address] Patient Name: MIKE RUSHING Encounter No: [id number] : 1985 Primary Insurance: MEDICARE A & B Anticipated DC Date: Planned Disposition: Home DCP follow-up note: REQUESTED BY PT, CM FAXED LETTER VERIFYING PT'S INPATIENT STATUS AT [facility] TO [facility], FAX [phone]. PATIENT NOTIFIED AND PROVIDED COPY OF LETTER TO THE COURT AND FAX CONFIRMATION FOR PT'S RECORDS. PT DENIES FURTHER NEEDS. PT PLANS TO GO HOME AT DISCHARGE, HAS NO ANTICIPATED NEEDS AT THIS TIME. PT PLANS TO DISCHARGE HOME, HAS NO ANTICIPATED DISCHARGE NEEDS AT THIS TIME. CM TO CONTINUE TO FOLLOW AND ASSIST IF NEEDED. Raoul Harrison DCP- Discharge Planning Updated by [email or web address]: Raoul Harrison on 07/07/19 2:[address] Patient Name: MIKE RUSHING Encounter No: [id number] : 1985 Primary Insurance: MEDICARE A & B Anticipated DC Date: Planned Disposition: Home DCP follow-up note: CM RECEIVED REQUEST TO SEE PT REGARDING NEED OF THE COURT TO BE NOTIFIED OF PT'S HOSPITAL ADMISSION. CM MET WITH PT IN ROOM, PT INFORMED CM THAT HE HAS TRAFFIC COURT IN [facility] COURT ON 07-08-19 AND WOULD LIKE PROOF OF HOSPITAL ADMISSION FAXED TO THE COURT. CM EXPLAINED THAT CM WILL FAX LETTER TOMORROW IF PT IS IN [facility] TOMORROW MORNING. PT IN AGREEMENT WITH PLAN. PT IS ALSO IN AGREEMENT WITH TRANSFER TO [facility] IN [place], IF NEEDED, THEY DOCTORS HERE ARE NOT ABLE TO DETERMINE WHERE HE IS BLEEDING FROM AND HE HAS HAD THREE BAGS OF BLOOD OVER THE WEEKEND. CM EDUCATED PT ON HOSPTIAL TRANSFER PROCESS AND INFORMED PT THAT THE DOCTOR WILL DISCUSS THIS OPTION MORE WITH PT IF THE MEDICAL TEAM FEELS IT TO BE NECESSARY. IF PHYSICIAN DETERMINES THAT PT NEEDS TRANSFERRED TO [facility] IN [place], PT IN AGREEMENT. CM TO FAX LETTER TO [facility] ON 07-08-19 TO SHOW PT'S INPATIENT HOSPITAL STATUS IF PT IS STILL AT [facility] AT THAT TIME. RAOUL HARRISON, CASE MANAGEMENT DCP- Discharge Planning Updated by [email or web address]: Rain Mosqueda on 07/04/19 5:[address] Patient Name: MIKE RUSHING Admission Status: ER Accout number: [id number] Admission Date: 07-04-2019 : 1985 Admission Diagnosis:HYP HRT CHR KDNY DIS W HRT FAIL AND W STG 5 CHR KDNY/ Attending: MAX PRYOR Current LOS: 1 Anticipated DC Date: Planned Disposition: Home Primary Insurance: MEDICARE A & B Discharge Planning Comments: CM met with patient at bedside after explaining CM role and obtaining verbal consent. Patient lives at home with his sister Myriam where he is independent with his care and plans to return there upon discharge. Patient feels this would be a safe discharge. CM discussed availability / needs of home health and medical equipment. Patient has dialysis MWF @ [facility] @ 0845. Patient denies any discharge needs at this time. Patient states he will have his family drive him home upon discharge. CM will continue to follow and assist as needed with discharge planning / needs. Polymerization Supervisor: Rain Mosqueda DCPIA - Discharge Planning Initial Assessment Updated by [id number]: Rain Mosqueda on 07/04/19 6:06 pm * Is the patient Alert and Oriented? Yes * How many steps to enter\exit or inside your home? * PCP NO PCP * Pharmacy [facility] * Preadmission Environment Home with Family * ADLs Independent * Equipment None * List name and contact numbers for known caregivers / representatives who currently or will assist patient after discharge: MYRIAM RUSHING - SISTER- [phone] * Verbal permission to speak to the caregivers and representatives has been obtained from the patient. Yes * Community resources currently utilized None * Additional services required to return to the preadmission environment? No * Can the patient safely return to the preadmission environment? Yes * Has this patient been hospitalized within the prior 30 days at any hospital? No Last DP export: 07/07/19 2:24 p Patient Name: MIKE RUSHING Page 22876 at 0848 All edits/amendments must be made on the electronic document DICTATION DATE: 07/08/19846 FLEET ADMINISTRATOR: DM 07/08/19846 RPT#: [id number] DC DATE: STATUS: ADM IN [facility] [address] [place] [address] END OF REPORT
[2019-07-08 10:01] LABS: HEMATOCRIT 26.7 % (42.0-54.0); HEMOGLOBIN 8.6 g/dL (13.5-17.5)
--- NOTE | 2019-07-08 10:41 | NUR ---
O2 SATS ARE 100% ON RA. NOTIFIED PHYSICIAN. WILL CTM. O2 REMOVED.
[2019-07-08 11:07] VITALS: BP 133/88
--- NOTE | 2019-07-08 12:19 | MORECARE ---
CASE MANAGEMENT DISCHARGE SUMMARY PATIENT: MIKE RUSHING UNIT: [id number] ADM DATE: 07/04/19 AGE: 33 : 89 SEX: M ROOM/BED: D.2109 AUTHOR: MARGARITADOC PHYSICIAN: REFERRING PHYSICIAN: MAX PRYOR MD DATE OF SERVICE: 07/08/19 Discharge Plan Patient Name: MIKE RUSHING Facility: [facility]:[place] : 1985 Planned Disposition: Home Anticipated Discharge Date: 07/08/19 Discharge Date: Expected LOS: 4 Initial Reviewer: [email or web address] Initial Review Date: 07/04/2019 Generated: 07/08/19 1:19 pm Comments DCP- Discharge Planning Updated by [email or web address]: Raoul Harrison on 07/08/19 7:[address] Patient Name: MIKE RUSHING Encounter No: [id number] : 1985 Primary Insurance: MEDICARE A & B Anticipated DC Date: Planned Disposition: Home DCP follow-up note: REQUESTED BY PT, CM FAXED LETTER VERIFYING PT'S INPATIENT STATUS AT [facility] TO [facility], FAX [phone]. PATIENT NOTIFIED AND PROVIDED COPY OF LETTER TO THE COURT AND FAX CONFIRMATION FOR PT'S RECORDS. PT DENIES FURTHER NEEDS. PT PLANS TO GO HOME AT DISCHARGE, HAS NO ANTICIPATED NEEDS AT THIS TIME. PT PLANS TO DISCHARGE HOME, HAS NO ANTICIPATED DISCHARGE NEEDS AT THIS TIME. CM TO CONTINUE TO FOLLOW AND ASSIST IF NEEDED. Raoul Harrison DCP- Discharge Planning Updated by [email or web address]: Raoul Harrison on 07/07/19 2:[address] Patient Name: MIKE RUSHING Encounter No: [id number] : 1985 Primary Insurance: MEDICARE A & B Anticipated DC Date: Planned Disposition: Home DCP follow-up note: CM RECEIVED REQUEST TO SEE PT REGARDING NEED OF THE COURT TO BE NOTIFIED OF PT'S HOSPITAL ADMISSION. CM MET WITH PT IN ROOM, PT INFORMED CM THAT HE HAS TRAFFIC COURT IN [place] [address] ON 07-08-19 AND WOULD LIKE PROOF OF HOSPITAL ADMISSION FAXED TO THE COURT. CM EXPLAINED THAT CM WILL FAX LETTER TOMORROW IF PT IS IN [facility] TOMORROW MORNING. PT IN AGREEMENT WITH PLAN. PT IS ALSO IN AGREEMENT WITH TRANSFER TO [facility] IN [place], IF NEEDED, THEY DOCTORS HERE ARE NOT ABLE TO DETERMINE WHERE HE IS BLEEDING FROM AND HE HAS HAD THREE BAGS OF BLOOD OVER THE WEEKEND. CM EDUCATED PT ON HOSPTIAL TRANSFER PROCESS AND INFORMED PT THAT THE DOCTOR WILL DISCUSS THIS OPTION MORE WITH PT IF THE MEDICAL TEAM FEELS IT TO BE NECESSARY. IF PHYSICIAN DETERMINES THAT PT NEEDS TRANSFERRED TO [facility] IN [place], PT IN AGREEMENT. CM TO FAX LETTER TO [facility] ON 07-08-19 TO SHOW PT'S INPATIENT HOSPITAL STATUS IF PT IS STILL AT [place] AT THAT TIME. RAOUL HARRISON, CASE MANAGEMENT DCP- Discharge Planning Updated by [id number]: Rain Mosqueda on 07/04/19 5:[address] Patient Name: MIKE RUSHING Admission Status: ER Accout number: [id number] Admission Date: 07-04-2019 : 1985 Admission Diagnosis:HYP HRT CHR KDNY DIS W HRT FAIL AND W STG 5 CHR KDNY/ Attending: MAX PRYOR Current LOS: 1 Anticipated DC Date: Planned Disposition: Home Primary Insurance: MEDICARE A & B Discharge Planning Comments: CM met with patient at bedside after explaining CM role and obtaining verbal consent. Patient lives at home with his sister Myriam where he is independent with his care and plans to return there upon discharge. Patient feels this would be a safe discharge. CM discussed availability / needs of home health and medical equipment. Patient has dialysis MWF @ [facility] @ 0845. Patient denies any discharge needs at this time. Patient states he will have his family drive him home upon discharge. CM will continue to follow and assist as needed with discharge planning / needs. Electro Tech: Rain Mosqueda DCPIA - Discharge Planning Initial Assessment Updated by [email or web address]: Rain Mosqueda on 07/04/19 6:06 pm * Is the patient Alert and Oriented? Yes * How many steps to enter\exit or inside your home? * PCP NO PCP * Pharmacy [facility] * Preadmission Environment Home with Family * ADLs Independent * Equipment None * List name and contact numbers for known caregivers / representatives who currently or will assist patient after discharge: MYRIAM RUSHING - SISTER- [phone] * Verbal permission to speak to the caregivers and representatives has been obtained from the patient. Yes * Community resources currently utilized None * Additional services required to return to the preadmission environment? No * Can the patient safely return to the preadmission environment? Yes * Has this patient been hospitalized within the prior 30 days at any hospital? No Last DP export: 07/08/19 7:47 a Patient Name: MIKE RUSHING Page 71303 at 1219 All edits/amendments must be made on the electronic document DICTATION DATE: 07/08/191218 COLLAR FUSER: KAYCEE 07/08/191218 RPT#: [id number] DC DATE: STATUS: ADM IN [facility] [address] [place] [address] END OF REPORT
--- NOTE | 2019-07-08 12:26 | NUR ---
PT DISCHARGED HOME VIA WHEELCHAIR WITH FAMILY. PIV REMOVED WITH CATHETER TIP FULLY INTACT. PT SIGNED PROPER DISCHARGE INSTRUCTIONS AND REMOVED ALL VALUABLES FROM THE ROOM.
[2019-07-10 11:10] LABS: IGG SUBCLASS 1 1217 mg/dL (248-810); IGG SUBCLASS 2 119 mg/dL (130-555); IGG SUBCLASS 3 144 mg/dL (15-102); IGG SUBCLASS 4 15 mg/dL (2-96); IGGS - IGG SERUM 1585 mg/dL (700-1600)
[2019-07-10 16:09] LABS: PARVOVIRUS B-19 - IGG 1.1 index (0.0-0.8); PARVOVIRUS B-19 - IGM 0.1 index (0.0-0.8)
[2019-07-10 19:08] LABS: ADAMTS13 ACTIVITY 29.9 % (>66.8)
[2019-07-11 13:10] LABS: PARVOVIRUS B-19 - IGG 1.2 index (0.0-0.8); PARVOVIRUS B-19 - IGM 0.1 index (0.0-0.8)
== END 2019-07-08 12:27 | disposition home or self-care (01) | DRG 291 ==
LOC: D.ER 02:51 → D.ICU 04:49 → D.M2 07-06 13:29 → D.SDCHOLD 07-07 13:00 → D.M2 07-08 12:27
PROVIDERS: Family Medicine; Internal Medicine; Internal Medicine Hematology & Oncology; ADMIT Internal Medicine Nephrology; ATTEND Internal Medicine Nephrology
DX: I13.2 Hypertensive heart and chronic kidney disease with heart failure and with stage 5 chronic kidney disease, or end stage renal disease (principal); N18.6 End stage renal disease; J96.01 Acute respiratory failure with hypoxia; B20 Human immunodeficiency virus [HIV] disease; I50.9 Heart failure, unspecified; Z99.2 Dependence on renal dialysis; Z91.15 Patient's noncompliance with renal dialysis

== ENCOUNTER 2019-08-14 12:32 | Emergency (ER) | payer MEDICARE ==
[~2019-08-14] VITALS: Ht 175.3 cm; Wt 75.9 kg
[2019-08-14 12:33] VITALS: Ht 175.3 cm; Wt 75.9 kg
[2019-08-14 12:56] LABS: BASOPHILS 0.1 % (0-2); EOSINOPHILS 1.5 % (0-7); HEMOGLOBIN 8.1 g/dL (13.5-17.5); IMMATURE GRANULOCYTES 0.3 % (0-5); LYMPHOCYTES 15.5 % (15-50); MCH 29.5 pg (26.0-34.0); MCHC 31.2 g/dL (31.0-37.0); MCV 94.5 fL (80.0-100.0); MEAN PLATELET VOLUME 9.5 fL (7.4-10.4); MONOCYTES 4.4 % (2-11); NEUTROPHILS 78.2 % (40-80); PLATELET COUNT 222 10x3/uL (130-400); RBC 2.75 10x6/uL (4.20-6.10); RDW 16.3 % (11.5-14.5); WBC 7.9 10x3/uL (4.8-10.8)
[2019-08-14 13:04] LABS: CALC OSMOLALITY 290 mosm/kg (275-300); CALCIUM 9.3 mg/dL (8.5-10.1); CARBON DIOXIDE 26.8 mmol/L (21.0-32.0); CHLORIDE - SERUM 97 mmol/L (98-107); CREATININE - SERUM 18.9 mg/dL (0.6-1.3); GLUCOSE 88 mg/dL (74-106); POTASSIUM - SERUM 5.3 mmol/L (3.5-5.1); SODIUM 136 mmol/L (136-145); UREA NITROGEN 69 mg/dL (7-18); eGFR NON AFRICAN AMERICAN 3 mL/min (90-120)
[2019-08-14 13:09] LABS: PROTIME 12.7 SECONDS (11.6-15.0)
[2019-08-14 13:20] LABS: ALBUMIN 3.7 g/dL (3.4-5.0); ALKALINE PHOSPHATASE 68 U/L (46-116); ALT (SGPT) 18 U/L (10-68); BILIRUBIN - TOTAL 0.51 mg/dL (0.2-1.3); CKMB 1.5 U/L (0.0-3.6); CREATINE KINASE 240 UL (21-232); PROTEIN - SERUM 8.9 g/dL (6.4-8.2); TROPONIN-I 0.059 ng/mL (0.000-0.060)
[2019-08-14 13:38] LABS: PRO BNP 42724 pg/mL (0-125)
--- NOTE | 2019-08-14 15:08 | NUR ---
DR. REYNOLDS NOTIFIED AND REVIEWED PT'S BEHAVIOR AND ASSESSMENT RESULTS. PT IS A LOW RISK PER DR. REYNOLDS. DR. REYNOLDS STATED TO GIVE RESOURCES TO PT AT TIME OF DISCHARGE. NO FURTHER ORDERS AT THIS TIME. RESOURCES REVIEWED WITH PT AND HE VERBALIZIED UNDERSTANDING.
[2019-08-14 22:49] VITALS: BP 179/94
[2019-08-15] MEDS ORDERED: CLARITIN 10 MG10 MG PO (07:52)
[2019-08-15] MEDS ORDERED: NORVIR100 M1 PO (07:54)
[2019-08-15] MEDS ORDERED: RENVELA800 MG PO (08:33)
[2019-08-15] MEDS ORDERED: TUMS X-STR300 MG PO (08:33)
== END 2019-08-14 22:50 | disposition home or self-care (01) ==
LOC: D.ER 12:32
PROVIDERS: Emergency Medicine
DX: R06.02 Shortness of breath (principal); N18.6 End stage renal disease

== ENCOUNTER 2019-08-15 04:32 | Inpatient (IN) | payer MEDICARE ==
[~2019-08-15] VITALS: Ht 175.3 cm; Wt 73.8 kg
[2019-08-15] VITALS (8 sets, daily range): BP systolic 151–214; BP diastolic 96–131; Ht 175.3 cm; Wt 73.8 kg
[2019-08-15 05:27] LABS: BASOPHILS 0.1 % (0-2); EOSINOPHILS 0.7 % (0-7); HEMATOCRIT 25.8 % (42.0-54.0); HEMOGLOBIN 8.2 g/dL (13.5-17.5); IMMATURE GRANULOCYTES 0.2 % (0-5); LYMPHOCYTES 11.3 % (15-50); MCH 29.8 pg (26.0-34.0); MCHC 31.8 g/dL (31.0-37.0); MCV 93.8 fL (80.0-100.0); MEAN PLATELET VOLUME 9.8 fL (7.4-10.4); MONOCYTES 5.9 % (2-11); NEUTROPHILS 81.8 % (40-80); PLATELET COUNT 193 10x3/uL (130-400); RBC 2.75 10x6/uL (4.20-6.10); RDW 16.5 % (11.5-14.5); WBC 8.7 10x3/uL (4.8-10.8)
--- NOTE | 2019-08-15 05:45 | NUR ---
PAIN LEVEL 5/10 WHEN COUGHING BUT NO PAIN WHEN NOT COUGHING.
[2019-08-15 05:48] LABS: CALC OSMOLALITY 283 mosm/kg (275-300); CALCIUM 9.6 mg/dL (8.5-10.1); CARBON DIOXIDE 27.8 mmol/L (21.0-32.0); CHLORIDE - SERUM 97 mmol/L (98-107); GLUCOSE 95 mg/dL (74-106); POTASSIUM - SERUM 4.9 mmol/L (3.5-5.1); SODIUM 136 mmol/L (136-145); UREA NITROGEN 47 mg/dL (7-18); eGFR NON AFRICAN AMERICAN 4 mL/min (90-120)
[2019-08-15 05:55] LABS: INR 1.09 (0.85-1.17); PROTIME 13.6 SECONDS (11.6-15.0)
[2019-08-15 05:56] LABS: APTT 39.6 SECONDS (22.8-39.4)
[2019-08-15 06:21] LABS: ALBUMIN 3.2 g/dL (3.4-5.0); ALKALINE PHOSPHATASE 57 U/L (46-116); ALT (SGPT) 16 U/L (10-68); BILIRUBIN - TOTAL 0.75 mg/dL (0.2-1.3); CKMB 1.1 U/L (0.0-3.6); CREATINE KINASE 192 UL (21-232); PROTEIN - SERUM 8.4 g/dL (6.4-8.2)
[2019-08-15 06:42] LABS: PRO BNP 49717 pg/mL (0-125)
--- NOTE | 2019-08-15 06:56 | NUR ---
BEDSIDE REPORT HANDED OFF VIA SBAR TO MOHIT HOWARD. PT STABLE AT THIS TIME.
[2019-08-15] MEDS ORDERED: CLARITIN 10 MG10 MG PO (07:52)
[2019-08-15] MEDS ORDERED: NORVIR100 M1 PO (07:54)
[2019-08-15] MEDS ORDERED: TUMS X-STR300 MG PO (08:33)
[2019-08-15] MEDS ORDERED: RENVELA800 MG PO (08:33)
--- NOTE | 2019-08-15 11:23 | NUR ---
ASSESSMENT COMPLETE PT REQUESTING SOMETHING FOR HIS NERVES PT'S ASSIGNED NURSE CHANCE BALDERAS MD AT THIS TIME
--- NOTE | 2019-08-15 11:31 | NUR ---
PT C/O "TROUBLE BREATHING AND FEELING ANXIOUS". XANAX ADMINISTERED PO. STATES HE FEELS SOB AND PULSE OX READING IS 84. RESPIRATORY CALLED AND STATES HE JUST HAD UPDRAFT TREATMENT. RESPIRATORY HAD HIM COUGH HARD AND GOT UP SOME SPUTUM BUT PULSE OX IS NOW 79. PER RESP ORDER ABGS AND HERE TO DRAW THEM NOW
--- NOTE | 2019-08-15 11:58 | NUR ---
UNABLE TO GET ARTERIAL BLOOD. PT STILL C/O SOB AND RESP PLACED ON HIGH FLOOR AT 15 L/M. PULSE OX UP TO 96 AND TAKEN TO DIALYSIS VIA BED. PT IS MORE CALM NOT AND RESTING QUIETLY.
--- NOTE | 2019-08-15 13:01 | NUR ---
TOOK MEDICATION FOR NAUSEA IN DIALYSIS. PULSE OX 94% AND RESTING QUIETLY WITH RESP EVEN AND UNLABORED.
--- NOTE | 2019-08-15 15:08 | NUR ---
RETURNED TO ROOM VIA BED FROM DIALYSIS. PULSE OX READING 94%. RESP CONTACTED AND WILL COME TO GIVE ARSALAN RAMACHANDRAN.
--- NOTE | 2019-08-15 16:09 | NUR ---
RESPIRATORY GAVE UPDRAFT TX AND SP02 READING UP TO 94%.
--- NOTE | 2019-08-15 19:15 | NUR ---
BEDSIDE REPORT RECEIVED FROM DAY SHIFT, PT CARE ASSUMED. INTRODUCED SELF AND WROTE NAME ON BOARD. PT LYING IN BED, AAOX4. DENIES PAIN OR ANY OTHER NEEDS AT THIS TIME. BED IN LOWEST POSITION, SR X2, CALL LIGHT WITHIN REACH. WILL CONTINUE TO MONITOR.
[2019-08-16] VITALS: BP 140/90
[2019-08-16 04:30] VITALS: BP 143/83
[2019-08-16 08:06] VITALS: BP 136/77
[2019-08-16 11:43] VITALS: BP 138/85
--- NOTE | 2019-08-16 12:52 | NUR ---
REC'D IN BED AWAKE AND ALERT. RESP EVEN AND UNLABORED WITH NO DISTRESS NOTED. CN EXPRESS NEED AND WANTS. NO C/O NOTED OR VOICED. ASSESSMENT COMPLETED. C/L IN REACH AT BEDSIDE.
[2019-08-16 15:58] VITALS: BP 151/82
--- NOTE | 2019-08-16 16:46 | NUR ---
I have reviewed this patient and I concur with the Shift Assessment completed by the Licensed Practical Nurse today this shift.
--- NOTE | 2019-08-16 19:15 | NUR ---
BEDSIDE REPORT RECEIVED FROM DAY SHIFT, PT CARE ASSUMED. WROTE NAME ON BOARD, PT LYING IN BED WITH EYES CLOSED, RR EVEN AND NONLABORED, NO S/S OF DISTRESS, AROUSES EASILY TO VOICE. ORIENTED X4. DENIES PAIN OR ANY OTHER NEEDS AT THIS TIME. BED IN LOWEST POSITION, SR X2, CALL LIGHT WITHIN REACH. WILL CONTINUE TO MONITOR.
[2019-08-16 20:00] VITALS: BP 129/76
[2019-08-17] VITALS (7 sets, daily range): BP systolic 119–150; BP diastolic 75–96
--- NOTE | 2019-08-17 02:11 | NUR ---
PT LYING IN BED WITH EYES CLOSED, RR EVEN AND NONLABORED, NO S/S OF DISTRESS, AROUSES EASILY TO VOICE. DENIES ANY NEEDS AT THIS TIME. BED IN LOWEST POSITION, SR X2, CALL LIGHT WITHIN REACH. WILL CONTINUE TO MONITOR.
[2019-08-17 04:52] LABS: BASOPHILS 0.2 % (0-2); EOSINOPHILS 2.2 % (0-7); IMMATURE GRANULOCYTES 0.2 % (0-5); LYMPHOCYTES 11.8 % (15-50); MCHC 30.6 g/dL (31.0-37.0); MCV 94.6 fL (80.0-100.0); MEAN PLATELET VOLUME 9.3 fL (7.4-10.4); MONOCYTES 6.7 % (2-11); NEUTROPHILS 78.9 % (40-80); RBC 2.21 10x6/uL (4.20-6.10); RDW 16.6 % (11.5-14.5); WBC 8.2 10x3/uL (4.8-10.8)
[2019-08-17 04:54] LABS: HEMATOCRIT 21.2 % (42.0-54.0); HEMOGLOBIN 7.6 g/dL (13.5-17.5); PLATELET COUNT 149 10x3/uL (130-400)
--- NOTE | 2019-08-17 20:00 | NUR ---
ALERT SITTING UP ON SIDE OF BED, DENIES PAIN OR NEEDS AT THIS TIME, SEE SHIFT ASSESSMENT, CALL LIGHT IN REACH
[2019-08-18 04:00] VITALS: BP 116/76; BP 160/98
[2019-08-18 06:16] LABS: BASOPHILS 0.2 % (0-2); EOSINOPHILS 2.3 % (0-7); IMMATURE GRANULOCYTES 0.3 % (0-5); LYMPHOCYTES 13.4 % (15-50); MCH 28.7 pg (26.0-34.0); MCHC 30.7 g/dL (31.0-37.0); MCV 93.6 fL (80.0-100.0); MEAN PLATELET VOLUME 10.2 fL (7.4-10.4); MONOCYTES 8.4 % (2-11); NEUTROPHILS 75.4 % (40-80); PLATELET COUNT 138 10x3/uL (130-400); RBC 2.02 10x6/uL (4.20-6.10); RDW 16.2 % (11.5-14.5)
[2019-08-18 06:22] LABS: WBC 6.1 10x3/uL (4.8-10.8)
[2019-08-18 06:23] LABS: HEMATOCRIT 18.9 % (42.0-54.0); HEMOGLOBIN 5.8 g/dL (13.5-17.5)
[2019-08-18 07:13] LABS: % SATURATION 16 % (15-55); IRON 28 ug/dl (35-150); TOTAL IRON BIND CAPACITY 173 ug/dl (260-445); UNSAT IRON BIND CAPACITY 145 ug/dl (150-375)
[2019-08-18 07:22] LABS: ANION GAP 24.5 mmol/L (8-16); CALCIUM 8.2 mg/dL (8.5-10.1); CARBON DIOXIDE 24.6 mmol/L (21.0-32.0); CREATININE - SERUM 17.6 mg/dL (0.6-1.3); POTASSIUM - SERUM 5.1 mmol/L (3.5-5.1)
[2019-08-18 08:00] VITALS: BP 134/83
[2019-08-18 12:00] VITALS: BP 129/89
--- NOTE | 2019-08-18 13:47 | NUR ---
Nutrition Follow-up: Pt asleep upon entering room and did not awaken. Chart reviewed. Noted 75% of breakfast eaten this AM. Diet: Renal Wt: 168# Last BM: 08/17 per chart Labs noted: K+ 5.1, Ca 8.2 Meds noted: Lasix, Renagel, Tums, Sensipar -Continue current diet as tolerated. -Offer Nepro with meals. -RD following.
--- NOTE | 2019-08-18 15:24 | NUR ---
SPOKE WITH SHON RUEDA DOING BEDSIDE DIALYSIS. SHE REPORTED TO WAIT FOR GIVE THE ZOYSYN THAT IS ORDERED AFTER THE DIALYSIS AND BLOOD ARE DONE
--- NOTE | 2019-08-18 16:55 | MORECARE ---
CASE MANAGEMENT DISCHARGE SUMMARY PATIENT: MIKE RUSHING UNIT: [id number] ADM DATE: 08/15/19 AGE: 34 : 89 SEX: M ROOM/BED: D.2104 AUTHOR: MARGARITADOC PHYSICIAN: REFERRING PHYSICIAN: NAA RANGEL MD DATE OF SERVICE: 08/18/19 Discharge Plan Patient Name: MIKE RUSHING Facility: [facility]:[place] : 1985 Planned Disposition: Home Anticipated Discharge Date: Discharge Date: Expected LOS: Initial Reviewer: [email or web address] Initial Review Date: 08/18/2019 Generated: 08/18/19 5:55 pm Comments DCP- Discharge Planning Updated by [id number]: Raoul Villarreal on 08/18/19 3:[address] Patient Name: MIKE RUSHING Admission Status: ER Accout number: [id number] Admission Date: 08-15-2019 : 1985 Admission Diagnosis: Attending: Naa Rangel Current LOS: 3 Anticipated DC Date: Planned Disposition: Home Primary Insurance: MEDICARE A & B Discharge Planning Comments: CM MET WITH PT IN ROOM TO DISCUSS DISCHARGE PLANNING AND NEEDS. PT REPORTS LIVING AT HOME INDEPENDENTLY WITH HIS SISTER. PT HAS NO MEDICAL EQUIPMENT AND NO OUTSIDE SERVICES ASSISTING IN THE HOME. CM DISCUSSED AVAILABILITY OF HOME HEALTH, REHAB SERVICES AND MEDICAL EQUIPMENT. PT HAS DIALYSIS AT [facility], MWF 0845 SCHEDULE, HIS SISTER DRIVES TO AND FROM DIALYSIS. PT DENIES DISCHARGE NEEDS, REPORTS HIS SISTER WILL PICK HIM UP FOR DISCHARGE HOME. Application Dba: Raoul Villarreal DCPIA - Discharge Planning Initial Assessment Updated by [email or web address]: Raoul Villarreal on 08/18/19 4:52 pm * Is the patient Alert and Oriented? Yes * How many steps to enter\exit or inside your home? NONE * PCP NONE - REFERRED TO [facility] [place] * Pharmacy [facility]. * Preadmission Environment Home with Family * ADLs Independent * Equipment None * Other Equipment NO MEDICAL EQUIPMENT PROVIDER PREFERENCE * List name and contact numbers for known caregivers / representatives who currently or will assist patient after discharge: MYRIAM RUSHING, SISTER, * Verbal permission to speak to the caregivers and representatives has been obtained from the patient. N/A * Community resources currently utilized Other * Please name any agencies selected above. OUTPATIENT DIALYSIS, [facility], [facility], 0845, SISTER TAKES TO AND FROM DIALYSIS. * Additional services required to return to the preadmission environment? No * Can the patient safely return to the preadmission environment? Yes * Has this patient been hospitalized within the prior 30 days at any hospital? No Patient Name: MIKE RUSHING Page 70571 at 1655 All edits/amendments must be made on the electronic document DICTATION DATE: 08/18/191654 GLUE WHEEL OPERATOR: KAYCEE 08/18/191654 RPT#: [id number] DC DATE: STATUS: ADM IN [facility] [address] [place] [address] END OF REPORT
--- NOTE | 2019-08-18 19:14 | NUR ---
EVENING ROUNDS COMPLETE. PT LAYING IN BED. NO SIGNS OF DISTRESS. AAOX4. DENIES ANY PAIN OR NEEDS AT THIS TIME. CL IN REACH, BED IN LOWEST POSITION.
[2019-08-18 20:00] VITALS: BP 131/76
[2019-08-19 00:30] VITALS: BP 130/87
[2019-08-19 04:00] VITALS: BP 142/94
[2019-08-19 04:58] LABS: BASOPHILS 0.2 % (0-2); EOSINOPHILS 2.9 % (0-7); IMMATURE GRANULOCYTES 0.2 % (0-5); LYMPHOCYTES 15.4 % (15-50); MCH 29.2 pg (26.0-34.0); MCHC 32.2 g/dL (31.0-37.0); MEAN PLATELET VOLUME 10.2 fL (7.4-10.4); MONOCYTES 7.9 % (2-11); NEUTROPHILS 73.4 % (40-80); PLATELET COUNT 152 10x3/uL (130-400); RDW 17.8 % (11.5-14.5); WBC 6.2 10x3/uL (4.8-10.8)
[2019-08-19 05:00] LABS: HEMATOCRIT 25.5 % (42.0-54.0); HEMOGLOBIN 8.2 g/dL (13.5-17.5); MCV 90.7 fL (80.0-100.0); RBC 2.81 10x6/uL (4.20-6.10)
--- NOTE | 2019-08-19 07:52 | NUR ---
REPORT RECIEVED. PT SITING SEMI FOWLERS IN BED. RR EVEN AND UNLABORED ON 15L HF VIA NC. HE HAS A R AC PIV THAT IS SL. BED LOCKED AND IN LOWEST POSITION, CALL LIGHT WITHIN REACH. WILL CTM
[2019-08-19 08:51] VITALS: BP 139/84
--- NOTE | 2019-08-19 11:55 | NUR ---
OBTAINED ORDERS FROM JUSTICE FOR [facility] FOR PT NOSE BLEEDS.
[2019-08-19 12:02] VITALS: BP 146/82
[2019-08-19 17:05] VITALS: BP 138/80
--- NOTE | 2019-08-19 19:15 | NUR ---
ALERT AND AWAKE LCTA AND BED IS LOW AND LOCKED SALINED LOCKED IV IRON INFUSION IS COMPLETE CALL LIGHT IS WITH PT AND DENIES NEEDS AT THIS TIME
[2019-08-19 20:00] VITALS: BP 148/82
[2019-08-20] VITALS: BP 144/92
--- NOTE | 2019-08-20 02:51 | NUR ---
I have reviewed this patient and I concur with the Shift Assessment completed by the Licensed Practical Nurse today this shift.
[2019-08-20 04:00] VITALS: BP 143/93
[2019-08-20 05:04] LABS: BASOPHILS 0.2 % (0-2); EOSINOPHILS 3.4 % (0-7); HEMATOCRIT 26.8 % (42.0-54.0); HEMOGLOBIN 8.4 g/dL (13.5-17.5); IMMATURE GRANULOCYTES 0.3 % (0-5); LYMPHOCYTES 17.2 % (15-50); MCH 28.8 pg (26.0-34.0); MCHC 31.3 g/dL (31.0-37.0); MCV 91.8 fL (80.0-100.0); MEAN PLATELET VOLUME 10.5 fL (7.4-10.4); MONOCYTES 5.6 % (2-11); NEUTROPHILS 73.3 % (40-80); PLATELET COUNT 151 10x3/uL (130-400); RBC 2.92 10x6/uL (4.20-6.10); RDW 17.3 % (11.5-14.5); WBC 6.1 10x3/uL (4.8-10.8)
[2019-08-20 05:47] LABS: ANION GAP 15.8 mmol/L (8-16); CALCIUM 8.5 mg/dL (8.5-10.1); CREATININE - SERUM 18.8 mg/dL (0.6-1.3); POTASSIUM - SERUM 4.8 mmol/L (3.5-5.1)
--- NOTE | 2019-08-20 07:41 | NUR ---
A/A/OX4. SITTING UP IN BED WATCHING TV AND DENIES ANY DISCOMFORT. NO REQUESTS VOICED. 02 ON VIA N/C HF AT 10L/M. NO SOB OR RESP DISTRESS NOTED. SL PATENT TO RIGHT AC WITHOUT REDNESS OR EDEMA. ASSESSMENT COMPLETED, BED IN LOW POSITION AND CALL LIGHT IN REACH.
[2019-08-20 09:12] VITALS: BP 150/99
--- NOTE | 2019-08-20 15:12 | NUR ---
I have reviewed this patient and I concur with the Shift Assessment completed by the Licensed Practical Nurse today this shift.
[2019-08-20 17:11] VITALS: BP 137/87
--- NOTE | 2019-08-20 19:34 | NUR ---
EVENING ROUND COMPLETED. PT AAOX4, VSS, NO S/S OF DISTRESS. PT STATES PIV LEAKING. REPLACED DRESSING. IV PATENT AT THIS TIME. PT DENIES ANY FURTHER NEEDS AT THIS TIME. WILL CTM. CL WITHIN REACH.
[2019-08-20 20:38] VITALS: BP 140/100
--- NOTE | 2019-08-21 01:26 | NUR ---
FOUND PT VOMITING CLEAR EMESIS. PT STATES HE FEELS DISCOMFORT IN HIS STOMACH. ZOPHRAN GIVEN AT THIS TIME. PT VOICED THANKS. WILL CPOC.
[2019-08-21 04:56] VITALS: BP 134/92
[2019-08-21 06:20] LABS: BASOPHILS 0.2 % (0-2); EOSINOPHILS 1.9 % (0-7); HEMATOCRIT 31.5 % (42.0-54.0); IMMATURE GRANULOCYTES 0.2 % (0-5); LYMPHOCYTES 16.3 % (15-50); MCH 29.5 pg (26.0-34.0); MCHC 31.7 g/dL (31.0-37.0); MCV 92.9 fL (80.0-100.0); MEAN PLATELET VOLUME 10.4 fL (7.4-10.4); NEUTROPHILS 76.4 % (40-80); RBC 3.39 10x6/uL (4.20-6.10); RDW 17.1 % (11.5-14.5)
[2019-08-21 06:26] LABS: ANION GAP 15.9 mmol/L (8-16); CALCIUM 9.5 mg/dL (8.5-10.1); CARBON DIOXIDE 28.8 mmol/L (21.0-32.0); PHOSPHOROUS 7.4 mg/dL (2.5-4.9); POTASSIUM - SERUM 4.7 mmol/L (3.5-5.1)
[2019-08-21 06:27] LABS: CREATININE - SERUM 12.1 mg/dL (0.6-1.3)
[2019-08-21 06:44] LABS: PLATELET COUNT 200 10x3/uL (130-400); WBC 8.5 10x3/uL (4.8-10.8)
--- NOTE | 2019-08-21 07:36 | NUR ---
REPORT RECEIVED. WILL CONTINUE WITH POC. PT CURRENTLY SITTING UP IN BED. CALL LIGHT W/I REACH. RR EVEN AND UNLABORED ON 9L HIGH FLOW. R.AC PIV IS SALINE LOCKED. PT CURRENTLY UNDERGOING RESP TRX. NO S/S OF DISTRESS NOTED. PT DENIES ANY NEEDS. WILL CTM.
[2019-08-21 12:20] VITALS: BP 133/90
[2019-08-21 12:27] VITALS: BP 128/82
--- NOTE | 2019-08-21 13:23 | NUR ---
Nutrition Consult/Follow-up: Received consult for renal diet education. Pt reports inconsistent PO4 binder use; states he takes Renvela (3 with meals/2 with snacks). Works at [employer]. Pt asked many questions regarding food choices; questions answered. Reports that he takes Megace at home and would like to take it here. Does not care for Nepro. Diet: Renal PO intake: 50-75% Wt: 164.4# Last BM: 08/19 per chart Labs noted: K+ 4.7, PO4 7.4 Meds noted: Lasix, Renagel, Tums, Sensipar -Continue current diet as tolerated. -Spoke with pt re: renal diet. -Encouraged protein intake. -Discussed high PO4 & K+ foods to avoid. -Encouraged PO4 binder use as prescribed. -Discussed healthier food options. -Encouraged adherence to fluid allowance. -Will attempt to provide written information on renal diet in addition prior to d/c. -May consider Megace per pt request; on reported home meds. -RD following. Thanks for the consult!
[2019-08-21 15:58] VITALS: BP 130/85
--- NOTE | 2019-08-21 16:13 | NUR ---
I have reviewed this patient and I concur with the Shift Assessment completed by the Licensed Practical Nurse today this shift.
--- NOTE | 2019-08-21 16:43 | NUR ---
PREVIOUS PIV INFILTRATED. INITIATED NEW PIV TO THE RIGHT FOREARM 22GA X1 ATTEMPT. FLUSHED WITH 10ML NS TO CONFIRM PATENCY. PT TOLERATED WELL. IRON CURRENTLY INFUSING. PT DENIES ANY NEEDS. FAMILY AT BEDSIDE. WILL CTM.
--- NOTE | 2019-08-21 18:09 | NUR ---
PT UP AND WALKING THE FLOOR AT THIS TIME. NO S/S OF DISTRESS NOTED. PT DENIES ANY NEEDS. WILL CTM.
--- NOTE | 2019-08-21 19:10 | NUR ---
BEDSIDE REPORT RECEIVED FROM DAY SHIFT, PT CARE ASSUMED. WROTE NAME ON BOARD. PT LYING IN BED, WATCHING TV, AAOX4. DENIES ANY NEEDS AT THIS TIME. BED IN LOWEST POSITION, SR X2, CALL LIGHT WITHIN REACH. WILL CONTINUE TO MONITOR.
[2019-08-21 20:39] VITALS: BP 138/86
[2019-08-22 00:15] VITALS: BP 127/80
[2019-08-22 04:45] VITALS: BP 140/87
[2019-08-22 07:50] VITALS: BP 135/97
--- NOTE | 2019-08-22 08:08 | NUR ---
REPORT RECIEVED. WILL CONTINUE WITH POC. PT CURRENTLY SITTING UP ON EDGE OF BED. CALL LIGHT W/I REACH. PT IS AAO AND UP AD BRADY. RR EVEN AND UNLABORED ON 3L HIGH FLOW NC. R.FOR PIV IS SALINE LOCKED. NO S/S OF DISTRESS NOTED. PT DENIES ANY NEEDS. WILL CTM.
[2019-08-22 10:47] VITALS: BP 139/96
--- NOTE | 2019-08-22 11:53 | NUR ---
I have reviewed this patient and I concur with the Shift Assessment completed by the Licensed Practical Nurse today this shift.
--- NOTE | 2019-08-22 13:40 | NUR ---
Nutrition Follow-up: Diet: Renal PO intake: 64% avg x 7 meals No new wt Labs noted: K+ 4.7, PO4 7.4 Meds noted: Lasix, Renagel, Tums, Sensipar -Provided written information on renal diet (basics, grocery list) and dialysis-friendly recipes. -Continue current diet as tolerated. -May consider Megace; pt reports as home med. -RD following.
[2019-08-22 15:14] VITALS: BP 138/80
--- NOTE | 2019-08-22 17:50 | NUR ---
PT TRANSFERED TO DIALYSIS. WILL CTM.
[2019-08-23 00:15] VITALS: BP 150/103
--- NOTE | 2019-08-23 04:03 | NUR ---
I have reviewed this patient and I concur with the Shift Assessment completed by the Licensed Practical Nurse today this shift.
[2019-08-23 04:18] VITALS: BP 140/94
--- NOTE | 2019-08-23 07:50 | NUR ---
PT A/A/OX4. JUST COMPLETED SHOWER AND NOW GOING FOR WALK IN HALLWAYS. DENIES ANY PAIN OR DISCOMFORT. NO REQUESTS VOICED. HAS 02 ON PER N/C AT 3 L/M. ASSESSMENT COMPLETED. SL PATENT TO RIGHT FOREARM WITHOUT REDNESS OR EDEMA. WILL CONTINUE POC. HE IS HOPING TO BE DISCHARGED TODAY.
[2019-08-23 09:10] VITALS: BP 142/94
[2019-08-23 09:50] LABS: BASOPHILS 0.3 % (0-2); EOSINOPHILS 2.5 % (0-7); HEMATOCRIT 32.4 % (42.0-54.0); HEMOGLOBIN 10.1 g/dL (13.5-17.5); IMMATURE GRANULOCYTES 0.2 % (0-5); MCH 29.4 pg (26.0-34.0); MCHC 31.2 g/dL (31.0-37.0); MCV 94.2 fL (80.0-100.0); MEAN PLATELET VOLUME 10.2 fL (7.4-10.4); MONOCYTES 7.9 % (2-11); NEUTROPHILS 64.1 % (40-80); PLATELET COUNT 229 10x3/uL (130-400); RBC 3.44 10x6/uL (4.20-6.10); RDW 17.1 % (11.5-14.5)
[2019-08-23] MEDS ORDERED: DIFLUCAN100 MG PO (10:00)
[2019-08-23] MEDS ORDERED: BACTRIM 400/80 MG TA PO (10:01)
[2019-08-23] MEDS ORDERED: LASIX40 MG PO (10:02)
[2019-08-23 10:33] LABS: ANION GAP 12.5 mmol/L (8-16); CALCIUM 9.2 mg/dL (8.5-10.1); CARBON DIOXIDE 29.4 mmol/L (21.0-32.0); POTASSIUM - SERUM 3.9 mmol/L (3.5-5.1)
--- NOTE | 2019-08-23 10:36 | NUR ---
[facility] HERE TO SEE PT AND STATES IF LABS ARE OKAY HE CAN BE DISCHARGED TODAY. HAS HAD 02 OFF SINCE BEFORE BREAKFAST AND SP02 READING IS 94%.
--- NOTE | 2019-08-23 11:49 | MORECARE ---
CASE MANAGEMENT DISCHARGE SUMMARY PATIENT: MIKE RUSHING UNIT: [id number] ADM DATE: 08/15/19 AGE: 34 : 87 SEX: M ROOM/BED: D.2104 AUTHOR: MARGARITADOC PHYSICIAN: REFERRING PHYSICIAN: NAA RANGEL MD DATE OF SERVICE: 08/23/19 Discharge Plan Patient Name: MIKE RUSHING Facility: [facility]:[place] : 1985 Planned Disposition: Home Anticipated Discharge Date: 08/23/19 Discharge Date: Expected LOS: 8 Initial Reviewer: [email or web address] Initial Review Date: 08/18/2019 Generated: 08/23/19 12:49 pm DCP- Discharge Planning Updated by [email or web address]: Raoul Villarreal on 08/18/19 3:[address] Patient Name: MIKE RUSHING Admission Status: ER Accout number: [id number] Admission Date: 08-15-2019 : 1985 Admission Diagnosis: Attending: Naa Rangel Current LOS: 3 Anticipated DC Date: Planned Disposition: Home Primary Insurance: MEDICARE A & B Discharge Planning Comments: CM MET WITH PT IN ROOM TO DISCUSS DISCHARGE PLANNING AND NEEDS. PT REPORTS LIVING AT HOME INDEPENDENTLY WITH HIS SISTER. PT HAS NO MEDICAL EQUIPMENT AND NO OUTSIDE SERVICES ASSISTING IN THE HOME. CM DISCUSSED AVAILABILITY OF HOME HEALTH, REHAB SERVICES AND MEDICAL EQUIPMENT. PT HAS DIALYSIS AT [facility], MWF 0845 SCHEDULE, HIS SISTER DRIVES TO AND FROM DIALYSIS. PT DENIES DISCHARGE NEEDS, REPORTS HIS SISTER WILL PICK HIM UP FOR DISCHARGE HOME. Communications Department Chairperson: Raoul Villarreal DCPIA - Discharge Planning Initial Assessment Updated by [email or web address]: Raoul Villarreal on 08/18/19 4:52 pm * Is the patient Alert and Oriented? Yes * How many steps to enter\exit or inside your home? NONE * PCP NONE - REFERRED TO [facility] [place] [facility] * Pharmacy [facility]. * Preadmission Environment Home with Family * ADLs Independent * Equipment None * Other Equipment NO MEDICAL EQUIPMENT PROVIDER PREFERENCE * List name and contact numbers for known caregivers / representatives who currently or will assist patient after discharge: MYRIAM RUSHING, SISTER, * Verbal permission to speak to the caregivers and representatives has been obtained from the patient. N/A * Community resources currently utilized Other * Please name any agencies selected above. OUTPATIENT DIALYSIS, [facility], [facility], 0845, SISTER TAKES TO AND FROM DIALYSIS. * Additional services required to return to the preadmission environment? No * Can the patient safely return to the preadmission environment? Yes * Has this patient been hospitalized within the prior 30 days at any hospital? No Coverage Notice Reviewer: [email or web address] Artemio Ayala Notice Issued Date-Time: 08/23/2019 11:47 Notice Type: IM Discharge Notice Notice Delivered To: Patient Relationship to Patient: Self Sales Commissions Analyst Name: Delivery Method: - Jeannine Days: Prior Verbal Notification: Recipient Understood Notice: Recipient Signature: Med Rec Note Co-signed by Attending: Coverage Notice Comment: Last DP export: 08/18/19 3:55 Patient Name: MIKE RUSHING Page 20813 at 1149 All edits/amendments must be made on the electronic document DICTATION DATE: 08/23/19 1149 CABLE MOCK UP ASSEMBLER: KAYCEE 08/23/19 1149 RPT#: [id number] DC DATE: STATUS: ADM IN [facility] [address] [place] [address] END OF REPORT
[2019-08-23 12:09] LABS: BASOS 0 % (Not Estab.); CD4 - % CD4 POS. LYMPH 33.5 % (30.8-58.5); CD4 - ABSOLUTE CD4 HELPER 503 /uL (359-1519); EOS 4 % (Not Estab.); EOS (ABSOLUTE) 0.2 x10E3/uL (0.0-0.4); HEMATOCRIT 28.2 % (37.5-51.0); LYMPHS 25 % (Not Estab.); LYMPHS (ABSOLUTE) 1.5 x10E3/uL (0.7-3.1); MCH 28.3 pg (26.6-33.0); MCHC 31.9 g/dL (31.5-35.7); MCV 89 fL (79-97); MONOCYTES 6 % (Not Estab.); MONOCYTES (ABSOLUTE) 0.4 x10E3/uL (0.1-0.9); NEUTROPHILS 65 % (Not Estab.); NEUTROPHILS (ABSOLUTE) 4.1 x10E3/uL (1.4-7.0); PLATELETS 213 x10E3/uL (150-450); RBC 3.18 x10E6/uL (4.14-5.80); RDW 17.2 % (12.3-15.4); WBC 6.3 x10E3/uL (3.4-10.8)
--- NOTE | 2019-08-23 12:24 | NUR ---
DISCHARGE INSTRUCTIONS REVIEWED WITH PT AND VERBALIZES UNDERSTANDING WTIH NO QUESTIONS. WILL AWAIT ARRIVAL OF HIS SISTER TO GET HIM.
--- NOTE | 2019-08-23 14:48 | NUR ---
SL REMOVED WITH CATH TIP INTACT. LEFT FLOOR VIA W/C WITH ALL PERSONAL BELONGINGS. LEFT FACILITY VIA PRIVATE VEHICLE WITH HIS SISTER.
--- NOTE | 2019-08-23 17:17 | NUR ---
REVIEWED THE ASSESSMENT COMPLETED BY CUSTOMER SUPPORT MANAGER AND I CONCUR.
--- NOTE | 2019-08-25 09:11 | MORECARE ---
CASE MANAGEMENT DISCHARGE SUMMARY PATIENT: MIKE RUSHING UNIT: [id number] ADM DATE: 08/15/19 AGE: 34 : 87 SEX: M ROOM/BED: D.2104 AUTHOR: MARGARITA,DOC PHYSICIAN: REFERRING PHYSICIAN: NAA RANGEL MD DATE OF SERVICE: 08/25/19 Discharge Plan Patient Name: MIKE RUSHING Facility: [facility]:[place] : 1985 Planned Disposition: Home Anticipated Discharge Date: 08/23/19 Discharge Date: 08/23/2019 Expected LOS: 8 Initial Reviewer: [email or web address] Initial Review Date: 08/18/2019 Generated: 08/25/19 10:11 am DCP- Discharge Planning Updated by [email or web address]: Raoul Villarreal on 08/18/19 3:[address] Patient Name: MIKE RUSHING Admission Status: ER Accout number: [id number] Admission Date: 08-15-2019 : 1985 Admission Diagnosis: Attending: Naa Rangel Current LOS: 3 Anticipated DC Date: Planned Disposition: Home Primary Insurance: MEDICARE A & B Discharge Planning Comments: CM MET WITH PT IN ROOM TO DISCUSS DISCHARGE PLANNING AND NEEDS. PT REPORTS LIVING AT HOME INDEPENDENTLY WITH HIS SISTER. PT HAS NO MEDICAL EQUIPMENT AND NO OUTSIDE SERVICES ASSISTING IN THE HOME. CM DISCUSSED AVAILABILITY OF HOME HEALTH, REHAB SERVICES AND MEDICAL EQUIPMENT. PT HAS DIALYSIS AT [facility], MW 0845 SCHEDULE, HIS SISTER DRIVES TO AND FROM DIALYSIS. PT DENIES DISCHARGE NEEDS, REPORTS HIS SISTER WILL PICK HIM UP FOR DISCHARGE HOME. Rehab Care Assistant: Raoul Villarreal DCPIA - Discharge Planning Initial Assessment Updated by [email or web address]: Raoul Villarreal on 08/18/19 4:52 pm * Is the patient Alert and Oriented? Yes * How many steps to enter\exit or inside your home? NONE * PCP NONE - REFERRED TO [facility] * Pharmacy [facility]. * Preadmission Environment Home with Family * ADLs Independent * Equipment None * Other Equipment NO MEDICAL EQUIPMENT PROVIDER PREFERENCE * List name and contact numbers for known caregivers / representatives who currently or will assist patient after discharge: MYRIAM RUSHING, SISTER, * Verbal permission to speak to the caregivers and representatives has been obtained from the patient. N/A * Community resources currently utilized Other * Please name any agencies selected above. OUTPATIENT DIALYSIS, [facility], [facility], 0845, SISTER TAKES TO AND FROM DIALYSIS. * Additional services required to return to the preadmission environment? No * Can the patient safely return to the preadmission environment? Yes * Has this patient been hospitalized within the prior 30 days at any hospital? No Coverage Notice Reviewer: [email or web address] Artemio Ayala Notice Issued Date-Time: 08/23/2019 11:47 Notice Type: IM Discharge Notice Notice Delivered To: Patient Relationship to Patient: Self Services Coordinator Name: Delivery Method: HAND - Hand Delivered Jeannine Days: Prior Verbal Notification: Recipient Understood Notice: Yes Recipient Signature: Yes Med Rec Note Co-signed by Attending: Coverage Notice Comment: DISCHARGE IMM EXPALINED AND SERVED. PATIENT HAD NO QUESTIONS. VOICED NO CONCERNS. SIGNED COPY TO THE PATIENT. SIGNED COPY TO THE HARD COVER CHART. Last DP export: 08/23/19 10:49 Patient Name: MIKE RUSHING Page 81517 at 0911 All edits/amendments must be made on the electronic document DICTATION DATE: 08/25/19910 POWER PLANT MANAGER: KAYCEE 08/25/19910 RPT#: [id number] DC DATE:08/23/19 STATUS: DIS IN [facility] [address] [place] [address] END OF REPORT
--- NOTE | 2019-08-26 11:48 | NUR ---
PATIENT TO CALL AND ASK ABOUT SCRIPTS FOR PAIN MEDICATION AND ANIEXTY MEDS THAT HE THOUGHT WERE SUPPOSE TO BE WITH HIM AT DISCHARGE. I LOOKED INTO HIS CHART AT THE DISCHARGE SUMMARY FROM [facility] AND THERE IS NOTHING MENTIONED. I INSTRUCTED THE PATIENT TO CALL THE DOCTOR (ROYA) OFFICE REGARDING THIS AND GAVE HIM THE NUMBER.
--- NOTE | 2019-09-01 13:55 | CN ---
PATIENT NAME:MIKE RUSHING MEDICAL RECORD: [id number] : [birth year] LOCATION:D. D.2104 ADMIT DATE: 08/15/19 ACCOUNT: [id number] CONSULTING PHYSICIAN: HILDA REYES MD REFERRING PHYSICIAN: NICHOLAS RANGEL MD DATE OF CONSULTATION: 08/17/2019 CONSULT REQUESTING PHYSICIAN: Nicholas Rangel MD REASON FOR CONSULTATION: Acute hypoxic respiratory failure, dyspnea. HISTORY OF PRESENT ILLNESS: Mr. Rushing is a 34-year-old -[place] gentleman who has end-stage renal disease on hemodialysis. He is also HIV positive. The patient came into the ER. He missed his dialysis for the last few days. The last one was on 08/11/2019, he was supposed to have dialysis 3 times a week. Denies any fever and chill, no night sweats, no significant sputum production. No chest pain. REVIEW OF SYSTEMS: Mainly in the history of present illness. PAST MEDICAL HISTORY: 1. End-stage renal disease, on hemodialysis. 2. Human immunodeficiency virus positive. 3. Hypertension. 4. Hypoxia. 5. Pneumonia. 6. Secondary hyperparathyroidism. 7. Hyperphosphatemia. 8. Seizure disorder. 9. Vertigo. 10. Gastroesophageal reflux disease. PAST SURGICAL HISTORY: He has a dialysis catheter placement and fistula. ALLERGIES: No known drug allergy. MEDICATIONS: On Jugo, is reviewed. PERSONAL AND SOCIAL HISTORY: He is a current everyday smoker. He is also abusing marijuana. FAMILY HISTORY: Significant for hypertension. PHYSICAL EXAMINATION: GENERAL: Now, the patient is lying comfortably in bed. He is not in acute distress. He is on nasal cannula oxygen. VITAL SIGNS: The blood pressure is 135/84, pulse is 95, respiration is 12, temperature 98.4, and SpO2 is 99% on 15 liters nasal cannula. HEENT: Conjunctivae are pink. Sclerae are not icteric. NECK: Supple, no JVD. CHEST: The chest excursion is minimal, but there are bilateral crackles. Wheeze on forceful respiration. HEART: Rhythm regular, normal sound, no murmur. ABDOMEN: Soft, bowel sounds present. No hepatosplenomegaly. RECTAL: Deferred. CONSULT REPORT [id number] MIKE RUSHING EXTREMITIES: No cyanosis, no clubbing, no pedal edema. CENTRAL NERVOUS SYSTEM: The patient is awake and alert. There are no obvious cranial nerve abnormalities. The gait was not tested. CHEST RADIOGRAPH: There are bilateral diffuse infiltrate. There is a worsening airspace opacity in the left lower base compared to a chest radiograph on August. LABORATORY DATA: CBC: The WBC is 8.2, hemoglobin 7.6, hematocrit 21.2, the platelet count is 149. ABG on admission, the pH was 7.53, pCO2 was 32, pO2 was 61, bicarbonate of 26.9, this was done on 4 liters nasal cannula. IMPRESSION: 1. Acute hypoxic respiratory failure, which is multifactorial. There is no pulmonary edema. 2. Possible community-acquired pneumonia in an immunocompromised patient. 3. End-stage renal disease, on hemodialysis. 4. Anemia, most likely secondary to chronic kidney disease, rule out gastrointestinal bleed. 5. Human immunodeficiency virus positive. 6. Diarrhea. 7. Tobacco dependence syndrome, suspect chronic obstructive pulmonary disease. RECOMMENDATIONS: 1. Albuterol/ipratropium nebulizer. 2. Continue prophylactic dose of Bactrim. 3. Continue Zosyn and continue Levaquin. 4. Hemodialysis. 5. Follow repeat labs and chest radiograph. 6. The patient was counseled to quit smoking. Dr. Rangel, thank you for involving me in the care of Mr. Rushing. TRANSINT:[id number] Voice Confirmation ID: [id number] DOCUMENT ID: [id number] HILDA REYES MD at 1355 CC: [id number] DICTATION DATE: 08/17/19 1144 CHIROPRACTIC NEUROLOGIST: 08/17/19 2158 DIS IN 08/23/19 [place] [id number] [place] [address]
== END 2019-08-23 14:49 | disposition home or self-care (01) | DRG 974 ==
LOC: D.ER 04:32 → D.M2 06:48
PROVIDERS: Family Medicine; Internal Medicine Nephrology; ADMIT Internal Medicine Nephrology; ATTEND Internal Medicine Nephrology
PROC: 5A1D70Z Performance of Urinary Filtration, Intermittent, Less than 6 Hours Per Day (ICD-10-PCS; principal; 2019-08-15)
DX: B20 Human immunodeficiency virus [HIV] disease (principal); N18.6 End stage renal disease; J18.1 Lobar pneumonia, unspecified organism; J96.01 Acute respiratory failure with hypoxia; I13.2 Hypertensive heart and chronic kidney disease with heart failure and with stage 5 chronic kidney disease, or end stage renal disease; N25.81 Secondary hyperparathyroidism of renal origin; I50.9 Heart failure, unspecified; D63.1 Anemia in chronic kidney disease; I25.10 Atherosclerotic heart disease of native coronary artery without angina pectoris; R19.7 Diarrhea, unspecified; K21.9 Gastro-esophageal reflux disease without esophagitis

== ENCOUNTER 2019-09-07 13:19 | Inpatient (IN) | payer MEDICARE ==
[~2019-09-07] VITALS: Ht 175.3 cm; Wt 69.1 kg
[2019-09-07] VITALS (29 sets, daily range): BP systolic 56–219; BP diastolic 26–120; BMI 24.9
[~2019-09-07 13:19] MED LIST changes: +BACTRIM 400/80 MG TA PO; +CLARITIN 10 MG10 MG PO; +DIFLUCAN100 MG PO; +LASIX40 MG PO; +NORVIR100 M1 PO; +RENVELA800 MG PO; +TUMS X-STR300 MG PO
[2019-09-07 14:17] LABS: HEMOGLOBIN 10.4 g/dL (13.5-17.5); MCH 30.2 pg (26.0-34.0); MCHC 31.5 g/dL (31.0-37.0); MCV 95.9 fL (80.0-100.0); MEAN PLATELET VOLUME 9.8 fL (7.4-10.4); PLATELET COUNT 187 10x3/uL (130-400); RBC 3.44 10x6/uL (4.20-6.10); RDW 65.5 % (11.5-14.5); WBC 13.2 10x3/uL (4.8-10.8)
[2019-09-07 14:30] LABS: GLUCOSE 96 mg/dL (74-106)
[2019-09-07 14:31] LABS: APTT 33.6 SECONDS (22.8-39.4); CALC OSMOLALITY 319 mosm/kg (275-300); CREATININE - SERUM 22.4 mg/dL (0.6-1.3); INR 0.99 (0.85-1.17); PROTIME 12.6 SECONDS (11.6-15.0); SODIUM 137 mmol/L (136-145); UREA NITROGEN 142 mg/dL (7-18); eGFR NON AFRICAN AMERICAN 2 mL/min (90-120)
[2019-09-07 14:32] LABS: ALKALINE PHOSPHATASE 108 U/L (46-116); ALT (SGPT) 16 U/L (10-68); CALCIUM 8.9 mg/dL (8.5-10.1); CARBON DIOXIDE 21.5 mmol/L (21.0-32.0); CHLORIDE - SERUM 98 mmol/L (98-107); POTASSIUM - SERUM 5.5 mmol/L (3.5-5.1)
[2019-09-07 14:33] LABS: ALBUMIN 3.5 g/dL (3.4-5.0); BILIRUBIN - TOTAL 0.55 mg/dL (0.2-1.3); CREATINE KINASE 214 UL (21-232); PRO BNP 16909 pg/mL (0-125); PROTEIN - SERUM 7.9 g/dL (6.4-8.2)
[2019-09-07 14:34] LABS: CKMB 2.2 U/L (0.0-3.6); TROPONIN-I 0.041 ng/mL (0.000-0.060)
--- NOTE | 2019-09-07 15:29 | NUR ---
PT VERY AGITATED, YELLING OUT , AWARE, VISTARIL GIVEN IM, PT CONT. TO FIGHT NON REBREATHER. MOVE PT TO TRAUMA 4 , PLACE ON BIPAP . PTS SATS 91%. BLOOD PRESSURE 179/113 RESP. TX GIVEN, PT STILL VERY RESTLESS. NURSE REMAINS AT BEDSIDE. TO MONITOR.
--- NOTE | 2019-09-07 15:39 | NUR ---
PT CONT. TO BE AGITATED, 1MG OF ATIVAN GIVEN PER ORDERS.
--- NOTE | 2019-09-07 15:43 | NUR ---
PT CONT.TO MOVE AROUND IN BED, TRYING TO RELAX. BUT GETTNG AGITATED. OFF AND ON.
--- NOTE | 2019-09-07 15:45 | NUR ---
LIGHTS DOWN, PT ON RIGHT SIDE, VITAL SIGNS 86 , 90% ON BI PAP, 186/117 RES
--- NOTE | 2019-09-07 19:00 | NUR ---
REPORT RECIEVED, SHIFT ASSESSMENT COMPLETE, SEE FLOW SHEET, PT SEDATED ON VENT, FOLLOWS COMMANDS, ON 100% FIO2 WITH 95% O2 SAT, ALL PPP, VSS, HD INITIATED AT THIS TIME, NURSE AT BEDSIDE,
--- NOTE | 2019-09-07 19:02 | NUR ---
1620 PT ARRIVED VIA STRETCHER RNX3 AT BEDSIDE. PT CONFUSED AND NOT RESPONSIVE. PT O2 SAT DECREASING. DR SHAH INFORMED OF PT STATUS. [address] JUÁREZ CONSULTED. 1800 DR ESPINOZA AT BEDSIDE. ORDERS RECEIVED. PT REQUIRES BVM TO MAINTAIN O2 SATURATION. WILL CONTINUE TO MONITOR.
--- NOTE | 2019-09-07 19:30 | NUR ---
PT HR AND BP DROPPING DOPAMINE INITIATED
--- NOTE | 2019-09-07 21:15 | NUR ---
HD COMPLETE, PT REPOSITIONED FOR COMFORT, WILL CON'T TO MONITOR
--- NOTE | 2019-09-07 23:04 | NUR ---
REPORT RECIEVED, SHIFT ASSESSMENT COMPLETE, NO CHANGES NOTED, PT RESTING COMFORTABLY AT THIS TIME, VSS,
[2019-09-08] VITALS (25 sets, daily range): BP systolic 76–154; BP diastolic 42–94; Ht 175.3 cm; Wt 69.1 kg
--- NOTE | 2019-09-08 01:08 | NUR ---
ORAL CARE PROVIDED, REPOSITIONED FOR COMFORT, WILL CON'T TO MONITOR
--- NOTE | 2019-09-08 03:05 | NUR ---
COMPLETE BATH AND LINEN CHANGE, PT TOLERATED WELL, WILL CON'T TO MONITOR
[2019-09-08 04:24] LABS: BASOPHILS 0.2 % (0-2); EOSINOPHILS 0.4 % (0-7); HEMATOCRIT 27.7 % (42.0-54.0); HEMOGLOBIN 9.8 g/dL (13.5-17.5); IMMATURE GRANULOCYTES 0.2 % (0-5); LYMPHOCYTES 7.3 % (15-50); MCH 34.3 pg (26.0-34.0); MCHC 35.4 g/dL (31.0-37.0); MCV 96.9 fL (80.0-100.0); MEAN PLATELET VOLUME 10.6 fL (7.4-10.4); MONOCYTES 6.6 % (2-11); NEUTROPHILS 85.3 % (40-80); PLATELET COUNT 175 10x3/uL (130-400); RBC 2.86 10x6/uL (4.20-6.10); RDW 18.9 % (11.5-14.5); WBC 11.2 10x3/uL (4.8-10.8)
[2019-09-08 04:57] LABS: ANION GAP 16.9 mmol/L (8-16); CALCIUM 7.9 mg/dL (8.5-10.1); CARBON DIOXIDE 24.8 mmol/L (21.0-32.0); PHOSPHOROUS 6.3 mg/dL (2.5-4.9); POTASSIUM - SERUM 4.7 mmol/L (3.5-5.1)
[2019-09-08 05:03] LABS: CREATININE - SERUM 16.3 mg/dL (0.6-1.3); MAGNESIUM - SERUM 4.1 mg/dL (1.8-2.4)
--- NOTE | 2019-09-08 05:20 | NUR ---
REPOSITIONED FOR COMFORT, ORAL CARE PROVIDED
--- NOTE | 2019-09-08 07:15 | NUR ---
REPORT RECEIVED. ASSESSMENT COMPLETE PER FLOW SHEET. VSS. PT RESTING COMFORTABLY ORAL ENDOTRACH CARE ADM. WILL CONTINUE TO MONITOR
--- NOTE | 2019-09-08 09:00 | NUR ---
DR ESPINOZA AT BEDSIDE NEW ORDERS RECEIVED
--- NOTE | 2019-09-08 11:00 | NUR ---
REASSESSMENT COMPLETE PER FLOW SHEET. VSS. NO NEW CHANGES WILL CONTINUE TO MONITOR
--- NOTE | 2019-09-08 13:15 | NUR ---
ORAL ENDOTRACH CARE ADM. WILL CONTINUE TO MONITOR
--- NOTE | 2019-09-08 15:15 | NUR ---
REASSESSMENT COMPLETE PER FLOW SHEET. VSS. NO NEW CHANGES WILL CONTINUE TO MONITOR
--- NOTE | 2019-09-08 17:20 | NUR ---
family at bedside given udpate. no new changes will continue to montior
--- NOTE | 2019-09-08 18:13 | NUR ---
dialysis at bedside given update.
--- NOTE | 2019-09-08 19:03 | MORECARE ---
CASE MANAGEMENT DISCHARGE SUMMARY PATIENT: MIKE RUSHING UNIT: [id number] ADM DATE: 09/07/19 AGE: 34 : 89 SEX: M ROOM/BED: D.2304 AUTHOR: DEANDRE AVILA PHYSICIAN: REFERRING PHYSICIAN: KIERA CATES MD DATE OF SERVICE: 09/08/19 Discharge Plan Patient Name: MIKE RUSHING Facility: [facility]:[place] : 1985 Planned Disposition: Anticipated Discharge Date: Discharge Date: Expected LOS: Initial Reviewer: [email or web address] Initial Review Date: 09/07/2019 Generated: 09/08/19 8:03 pm Comments DCP- Discharge Planning Updated by [email or web address]: Rani Mosqueda on 09/08/19 5:[address] CM attempted to call patients sister Anni [phone] but didn't get anyone to answer. Patient is currently intubated and sedated on ventilator. CM will attempt to get discharge plan again later. CM will continue to follow and assist as needed with discharge planning /needs. Patient Name: MIKE RUSHING Page [phone] at 1903 All edits/amendments must be made on the electronic document DICTATION DATE: 09/08/191902 REVENUE OFFICER: KAYCEE 09/08/191902 RPT#: [id number] DC DATE: STATUS: ADM IN [facility] [address] [place] [address] END OF REPORT
--- NOTE | 2019-09-08 19:10 | NUR ---
REPORT RECIEVED, SHIFT ASSESSMENT COMPLETE, PT IS SEDATED ON VENT, ON 80% FIO2 WITH 96% O2 SAT. HD IN PROGRESS AT THIS TIME, ALL PPP, VSS, WILL CON'T TO MONITOR
--- NOTE | 2019-09-08 21:00 | NUR ---
PT RESTING COMFORTABLY AT THIS TIME, VSS,
--- NOTE | 2019-09-08 23:25 | NUR ---
REASSESSMENT COMPLETE, NO CHANGES NOTED, REPOSITIONED FOR COMFORT, ORAL CARE PROVIDED,
[2019-09-09] VITALS (24 sets, daily range): BP systolic 102–169; BP diastolic 55–84
--- NOTE | 2019-09-09 01:01 | NUR ---
REPOSITIONED FOR COMFORT, ORAL CARE PROVIDED, WILL CON'T TO MONITOR
--- NOTE | 2019-09-09 03:26 | NUR ---
REASSESSMENT COMPLETE, NO CHANGES NOTED, PT REPOSITIONED FOR COMFORT, ORAL CARE PROVIDED
[2019-09-09 04:37] LABS: BASOPHILS 0.3 % (0-2); EOSINOPHILS 0.5 % (0-7); HEMATOCRIT 24.9 % (42.0-54.0); IMMATURE GRANULOCYTES 0.3 % (0-5); LYMPHOCYTES 11.2 % (15-50); MCH 29.4 pg (26.0-34.0); MCHC 30.9 g/dL (31.0-37.0); MONOCYTES 8.2 % (2-11); NEUTROPHILS 79.5 % (40-80); PLATELET COUNT 158 10x3/uL (130-400); RBC 2.62 10x6/uL (4.20-6.10); RDW 18.9 % (11.5-14.5)
[2019-09-09 04:43] LABS: HEMOGLOBIN 7.7 g/dL (13.5-17.5); WBC 7.8 10x3/uL (4.8-10.8)
[2019-09-09 04:48] LABS: ANION GAP 18.2 mmol/L (8-16); CALCIUM 8.1 mg/dL (8.5-10.1); CARBON DIOXIDE 25.5 mmol/L (21.0-32.0); CREATININE - SERUM 12.7 mg/dL (0.6-1.3); POTASSIUM - SERUM 4.7 mmol/L (3.5-5.1)
[2019-09-09 04:53] LABS: PHOSPHOROUS 8.6 mg/dL (2.5-4.9)
--- NOTE | 2019-09-09 05:15 | NUR ---
COMPLETE BATH AND LINEN CHANGE, PT TOLERATED WELL
--- NOTE | 2019-09-09 07:15 | NUR ---
REPORT RECEIVED. ASSESSMENT COMPLETE PER FLOW SHEET. PT RESTING COMFORTABLY NO NEW CHANGES WILL CONTINUE TO MONITOR
--- NOTE | 2019-09-09 09:20 | NUR ---
ORAL ENDOTRACH CARE ADM. REPOSTIIONED FOR COMFORT. DR ALEXIS Garcia ORDER FOR TF ADM. WILL CONTINUE TO MONITOR
--- NOTE | 2019-09-09 11:15 | NUR ---
REASSESSMENT COMPLETE PER FLOW SHEET. VSS. NO NEW CHANGES PT RESTING COMFORTABLY WILL CONTINUE TO MONITOR
--- NOTE | 2019-09-09 13:15 | NUR ---
REASSESSMENT COMPLETE PER FLOW SHEET. VSS. NO NEW CHANGES WILL CONTINUE TO MONITOR
--- NOTE | 2019-09-09 15:00 | NUR ---
REASSESSMENT COMPLETE PER FLOW SHEET. VSS. NO NEW CHCANGES PT RESTING COMFORTABLY WILL CONTINUE TO MONITOR
--- NOTE | 2019-09-09 19:20 | NUR ---
REPORT RECIEVED, SHIFT ASSESSMENT COMPLETE, PT IS SEDATED ON VENT, ALL PPP, VSS, REPOSITIONED FOR COMFORT, ORAL CARE PROVIDED
--- NOTE | 2019-09-09 20:42 | MORECARE ---
CASE MANAGEMENT DISCHARGE SUMMARY PATIENT: MIKE RUSHING UNIT: [id number] ADM DATE: 09/07/19 AGE: 34 : [birth year] SEX: M ROOM/BED: D.2304 AUTHOR: DEANDRE AVILA PHYSICIAN: REFERRING PHYSICIAN: KIERA CATES MD DATE OF SERVICE: 09/09/19 Discharge Plan Patient Name: MIKE RUSHING Facility: [facility]:[place] : 1985 Planned Disposition: Home Anticipated Discharge Date: Discharge Date: Expected LOS: Initial Reviewer: [email or web address] Initial Review Date: 09/09/2019 Generated: 09/09/19 9:42 pm DCP- Discharge Planning Updated by [email or web address]: Rain Mosqueda on 09/08/19 5:[address] CM attempted to call patients sister Myriam [phone] but didn't get anyone to answer. Patient is currently intubated and sedated on ventilator. CM will attempt to get discharge plan again later. CM will continue to follow and assist as needed with discharge planning /needs. DCPIA - Discharge Planning Initial Assessment Updated by [email or web address]: Rain Mosqueda on 09/09/19 8:41 pm * How many steps to enter\exit or inside your home? * PCP NO PCP * Pharmacy [facility] * Preadmission Environment Home with Family * ADLs Independent * Equipment None * List name and contact numbers for known caregivers / representatives who currently or will assist patient after discharge: MYRIAM RUSHING - SISTER- [phone] * Verbal permission to speak to the caregivers and representatives has been obtained from the patient. N/A * Community resources currently utilized None * Please name any agencies selected above. HD MWF @ [place] [id number] * Additional services required to return to the preadmission environment? No * Can the patient safely return to the preadmission environment? Yes * Has this patient been hospitalized within the prior 30 days at any hospital? Yes Last DP export: 09/08/19 6:03 p Patient Name: MIKE RUSHING Page [phone] at 2042 All edits/amendments must be made on the electronic document DICTATION DATE: 09/09/192041 MEDICAL LANGUAGE SPECIALIST: KAYCEE 09/09/192041 RPT#: [id number] DC DATE: STATUS: ADM IN [facility] [address] [place] [address] END OF REPORT
--- NOTE | 2019-09-09 20:48 | MORECARE ---
CASE MANAGEMENT DISCHARGE SUMMARY PATIENT: MIKE RUSHING UNIT: [id number] ADM DATE: 09/07/19 AGE: 34 : 89 SEX: M ROOM/BED: D.2304 AUTHOR: MARGARITA,DOC PHYSICIAN: REFERRING PHYSICIAN: KIERA CATES MD DATE OF SERVICE: 09/09/19 Discharge Plan Patient Name: MIKE RUSHING Facility: [facility]:[place] : 1985 Planned Disposition: Home Anticipated Discharge Date: Discharge Date: Expected LOS: Initial Reviewer: [email or web address] Initial Review Date: 09/09/2019 Generated: 09/09/19 9:48 pm Comments DCP- Discharge Planning Updated by [email or web address]: Rain Mosqueda on 09/09/19 7:[address] Patient Name: MIKE RUSHING Admission Status: ER Accout number: [id number] Admission Date: 09-07-2019 : 1985 Admission Diagnosis: Attending: KIERA CATES Current LOS: 2 Anticipated DC Date: Planned Disposition: Home Primary Insurance: MEDICARE A & B Discharge Planning Comments: CM spoke with patient's sister Myriam via phone after explaining CM role and obtaining verbal consent. Patient lives at home with his sister Myriam where he is independent with his care and plans to return there upon discharge. Patient feels this would be a safe discharge. CM discussed availability / needs of home health and medical equipment. Patient denies any discharge needs at this time. Patient has dialysis @ [facility] [address]45 Patient states he will have his family drive him home upon discharge. CM will continue to follow and assist as needed with discharge planning / needs. Health Information Administrator: Rain Mosqueda DCP- Discharge Planning Updated by [email or web address]: Rain Mosqueda on 09/08/19 5:[address] CM attempted to call patients sister Myriam [phone] but didn't get anyone to answer. Patient is currently intubated and sedated on ventilator. CM will attempt to get discharge plan again later. CM will continue to follow and assist as needed with discharge planning /needs. DCPIA - Discharge Planning Initial Assessment Updated by [email or web address]: Rain Mosqueda on 09/09/19 8:41 pm * How many steps to enter\exit or inside your home? * PCP NO PCP * Pharmacy [facility] * Preadmission Environment Home with Family * ADLs Independent * Equipment None * List name and contact numbers for known caregivers / representatives who currently or will assist patient after discharge: MYRIAM RUSHING - [facility]- [phone] * Verbal permission to speak to the caregivers and representatives has been obtained from the patient. N/A * Community resources currently utilized None * Please name any agencies selected above. HD MWF @ [place] [address] * Additional services required to return to the preadmission environment? No * Can the patient safely return to the preadmission environment? Yes * Has this patient been hospitalized within the prior 30 days at any hospital? Yes Last DP export: 09/09/19 7:42 p Patient Name: MIKE RUSHING Page [phone] at 2047 All edits/amendments must be made on the electronic document DICTATION DATE: 09/09/192047 TEMPERATURE INSPECTOR: KAYCEE 09/09/192047 RPT#: [id number] DC DATE: STATUS: ADM IN [facility] [address] [place] [address] END OF REPORT
--- NOTE | 2019-09-09 21:18 | NUR ---
NO VISITORS AT THIS TIME, REPOSITIONED FOR COMFORT,
--- NOTE | 2019-09-09 23:24 | NUR ---
REASSESSMENT COMPLETE, NO CHANGES NOTED, PT RESTING AT THIS TIME REPOSITIONED FOR COMFORT, ORAL CARE PROVIDED
[2019-09-10] VITALS (24 sets, daily range): BP systolic 125–179; BP diastolic 63–97
--- NOTE | 2019-09-10 01:00 | NUR ---
REPOSITIONED FOR COMFORT, ORAL CARE PROVIDED
--- NOTE | 2019-09-10 03:14 | NUR ---
REASSESSMENT COMPLETE, NO CHANGES NOTED, REPOSITIONED FOR COMFORT, ORAL CARE PROVIDED
[2019-09-10 04:40] LABS: % SATURATION 56 % (15-55); IRON 95 ug/dl (35-150); TOTAL IRON BIND CAPACITY 169 ug/dl (260-445); UNSAT IRON BIND CAPACITY 74 ug/dl (150-375)
[2019-09-10 04:44] LABS: HEMATOCRIT 21.1 % (42.0-54.0); MCH 30.7 pg (26.0-34.0); MCHC 33.2 g/dL (31.0-37.0); MEAN PLATELET VOLUME 10.9 fL (7.4-10.4); NEUTROPHILS 84.4 % (40-80); PLATELET COUNT 131 10x3/uL (130-400); RBC 2.28 10x6/uL (4.20-6.10); RDW 17.6 % (11.5-14.5); WBC 6.4 10x3/uL (4.8-10.8)
[2019-09-10 04:47] LABS: MCV 92.5 fL (80.0-100.0)
[2019-09-10 05:15] LABS: ANION GAP 18.5 mmol/L (8-16); CALCIUM 8.3 mg/dL (8.5-10.1); CARBON DIOXIDE 25.3 mmol/L (21.0-32.0); CREATININE - SERUM 14.8 mg/dL (0.6-1.3); POTASSIUM - SERUM 4.8 mmol/L (3.5-5.1)
--- NOTE | 2019-09-10 05:19 | NUR ---
COMPLETE BATH AND LINEN CHANGE, PT TOLERATED WELL
[2019-09-10 05:20] LABS: PHOSPHOROUS 11.2 mg/dL (2.5-4.9)
--- NOTE | 2019-09-10 08:08 | NUR ---
Nutrition follow-up: Pt started on Jevity 1.2 shandra @ 20 ml/hr Labs reviewed; PO4 extremely elevated Pt with ESRD Wt: 171# RDN will change TF formula to Nepro @ 20 ml/hr with gradual increase to goal rate of 55 ml/hr 2/2 pt with ESRD and elevated PO4 RDN following.
--- NOTE | 2019-09-10 08:54 | NUR ---
DR. ESPINOZA AT BEDSIDE. ORDERED TO DECREASE PEEP FROM 12 TO 10.
--- NOTE | 2019-09-10 09:31 | NUR ---
CALLED PLACED TO ABIMAEL RUSHING, SISTER, TO ASK HER TO BRING PT'S HOME MEDICATIONS. SHE IS AT WORK AT THIS TIME. SHE WILL CALL BACK WHEN SHE GETS OFF WORK.
--- NOTE | 2019-09-10 09:49 | NUR ---
NEPRO INIATED AT THIS TIME AT 20ML/HR WITH 100ML H2O FLUSH Q 4HR.
--- NOTE | 2019-09-10 10:53 | NUR ---
CALL RECEIVED FROM DR. SHAH. WANTS ONE UNIT OF PRBC'S TO BE GIVEN AT THIS TIME. 2ND UNIT TO BE GIVEN WITH DIALYSIS.
--- NOTE | 2019-09-10 11:06 | NUR ---
CONSENT FOR BLOOD TRANSFUSION RECEIVED VIA PHONE FROM ABIMAEL RUSHING PATIENT'S SISTER.
--- NOTE | 2019-09-10 11:26 | NUR ---
1ST UNIT OF PRBC'S INFUSING AT THIS TIME.
--- NOTE | 2019-09-10 12:25 | NUR ---
DR. ALYSSA MCCORMICK.
--- NOTE | 2019-09-10 12:28 | NUR ---
SPOKE WITH DR. SHAH REGARDING DOSAGE AND FREQUENCY OF NORVIR AND EMTRIVA. NORVIR 100MG DAILY, EMTRIVA 200MG DAILY.
[2019-09-10 13:10] LABS: FUNGUS STAIN Final report (())
--- NOTE | 2019-09-10 14:02 | NUR ---
2ND UNIT OF PRBC'S INFUSING AT THIS TIME WITH DIALYSIS.
[2019-09-10 18:54] LABS: HEMATOCRIT 29.1 % (42.0-54.0); HEMOGLOBIN 9.7 g/dL (13.5-17.5)
--- NOTE | 2019-09-10 19:00 | NUR ---
RECEIVED PT FROM OFF GOING NURSE AT THIS TIME. PT IS IN BED INTUBATED AND SEDATED. NO FAMILY PRESENT. INITIAL ASSESSMENT COMPLETED. ORAL CARE PERFORMED. REPOSITIONED PT. NO FURTHER NEEDS IDENTIFIED. NO S/S OF DISTRESS NOTED. WILL CONTINUE TO MONITOR.
--- NOTE | 2019-09-10 20:55 | NUR ---
TRANSPORTED PT TO CT VIA BED WITH HELP OF RT, AND PRODUCTION TEAM ADVISOR. NO S/S OF DISTRESS NOTED. VSS.
--- NOTE | 2019-09-10 23:00 | NUR ---
REASSESSMENT COMPLETED, SEE FLOWSHEET FOR DETAILS. PT IS LAYING IN BED INTUBATED AND SEDATED STILL. PT WILL AWAKEN AND BANG ON THE BED OR GRAB YOUR HAND WHEN YOU ENTER THE ROOM BUT HAS NOT FOLLOWED COMMANDS FOR ME. NO NEEDS NOTED. NO S/S OF DISTRESS. WILL CONTINUE TO MONITOR.
[2019-09-11] VITALS (24 sets, daily range): BP systolic 117–208; BP diastolic 63–103
--- NOTE | 2019-09-11 01:00 | NUR ---
PT IS LAYING IN BED INTUBATED AND SEDATED. NO NEEDS NOTED AT THIS TIME. PT REPOSITIONED FOR COMFORT. ORAL CARE PERFORMED. NO S/S OF DISTRESS NOTED. WILL CONTINUE TO MONITOR.
--- NOTE | 2019-09-11 03:00 | NUR ---
REASSESSMENT COMPLETED, SEE FLOWSHEET FOR DETAILS. PT IS LAYING IN BED INTUBATED AND SEDATED. PT REPOSITIONED FOR COMFORT. ORAL CARE COMPLETED. NO FURTHER NEEDS NOTED AT THIS TIME. NO S/S OF DISTRESS. WILL CONTINUE TO MONITOR.
[2019-09-11 04:55] LABS: HEMATOCRIT 25.7 % (42.0-54.0); HEMOGLOBIN 8.6 g/dL (13.5-17.5); LYMPHOCYTES 10.5 % (15-50); MCH 30.6 pg (26.0-34.0); MCHC 33.5 g/dL (31.0-37.0); MCV 91.5 fL (80.0-100.0); MEAN PLATELET VOLUME 10.3 fL (7.4-10.4); NEUTROPHILS 81.9 % (40-80); PLATELET COUNT 135 10x3/uL (130-400); RDW 19.1 % (11.5-14.5); WBC 6.8 10x3/uL (4.8-10.8)
--- NOTE | 2019-09-11 05:00 | NUR ---
PT IS LAYING IN BED INTUBATED AND SEDATED. PT REPOSITIONED FOR COMFORT. ORAL CARE PERFORMED. NO S/S OF DISTRESS NOTED. WILL CONTINUE TO MONITOR.
[2019-09-11 05:05] LABS: ANION GAP 16.7 mmol/L (8-16); CARBON DIOXIDE 27.5 mmol/L (21.0-32.0); CREATININE - SERUM 11.7 mg/dL (0.6-1.3); POTASSIUM - SERUM 4.2 mmol/L (3.5-5.1)
[2019-09-11 05:07] LABS: RBC 2.81 10x6/uL (4.20-6.10)
--- NOTE | 2019-09-11 07:20 | NUR ---
DR. SHAH AT BEDSIDE. ORDERED 1UNIT OF PRBC'S TO BE GIVEN WITH DIALYSIS TODAY.
--- NOTE | 2019-09-11 08:41 | NUR ---
Nutrition follow-up: Nepro @ 40 ml/hr Propofol @ 37 ml/hr Will not advance TF past 40 ml/hr at this time due to high kcal intake from propofol. RDN following.
--- NOTE | 2019-09-11 12:41 | NUR ---
OFF SEDATION AT THIS TIME. ON CPAP TRIALS FOR POSSIBLE EXTUBATION TODAY.
--- NOTE | 2019-09-11 15:05 | NUR ---
CLONIDINE 0.2 MG TAB GIVEN WITH SIP OF WATER PER DR. CATES'S ORDERS. PT ON BIPAP AT 40%. WILL CONTINUE TO MONITOR.
--- NOTE | 2019-09-11 17:12 | NUR ---
PT CURRENTLY ON DIALYSIS.
--- NOTE | 2019-09-11 18:23 | NUR ---
BP 188/103. APRESOLINE 10MG IV AND LOPRESSOR 5MG IV HAVE BEEN GIVEN. CURRENTLY ON DIALYSIS. PAGED GALO RICE APN AT THIS TIME.
--- NOTE | 2019-09-11 18:33 | NUR ---
CALLED DR. AYERS REGARDING BP 188/103. ORDERED CLONIDINE 0.2 PO X 1.
--- NOTE | 2019-09-11 19:30 | NUR ---
REPORT REC'D AND CARE ASSUMED, REC'D PT ON BIPAP AT 40%, AWAKE AND ALERT, WRITING NOTES TO NURSE AND ANSWERING QUESTIONS BY NODDING HEAD, DIALYSIS IN PROGRESS, DIALYSIS NURSE @ BEDSIDE INFUSING BLOOD, BP 201/111, GENERALIZED SCARRING, RIGHT HAND PIV SALINE LOCKED, DRSG CDI, RIGHT WRIST PIV, DRSG CDI SALINE LOCKED, LEFT UPPER ARM FISTULA ACCESSED FOR DIALYSIS, PT ANURIC, MAEE, PT SHAKES HEAD NO WHEN ASKED IF IN PAIN, CM-ST @ 101, SR UP X 2 ,BED IN LOW POSITION, CALL LIGHT IN REACH.
--- NOTE | 2019-09-11 20:55 | NUR ---
DIALYSIS COMPLETED, BP REMAINS ELEVATED, PT REPOSITIONED IN BED FOR COMFORT, WILL CONT TO MONITOR CLOSELY FOR CHANGES.
--- NOTE | 2019-09-11 21:30 | NUR ---
EVENING MEDS GIVEN, PO MED HELD WITH BIPAP IN PLACE AND PT EXTUBATED THIS AFTERNOON, WILL OBTAIN SWALLOW EVAL IN AM BEFORE PROCEEDING WITH PO STATUS.
--- NOTE | 2019-09-11 22:00 | NUR ---
PT CONCERNED ABOUT CELL PHONE, PATRICIA FLOOD BAG AT BS, NO CELL PHONE PRESENT, ONE THE OTHER NURSES PRESENT ON THIS SHIFT STATES PT'S SISTER TOOK CELL PHONE WHEN ADMITTED, PT'S SISTER CALLED TO VERIFY SHE HAD CELL PHONE BY Neptali RUSHING RN, SISTER STATED SHE WOULD BRING PT HIS PHONE IN AM, PT INFORMED AND AGREEABLE.
--- NOTE | 2019-09-11 23:00 | NUR ---
PT RESTING ON SIDE IN BED, POINTED TO FEET, PT HAVING MUSCLE SPASMS, RIGHT FOOT MASSAGED FOR PT, BP ELEVATED BUT IMPROVED, PT DENIES FURTHER NEEDS, O2 SAT 96%, VISIBLE TO NURSES STATION.
[2019-09-12] VITALS (23 sets, daily range): BP systolic 118–203; BP diastolic 67–134
--- NOTE | 2019-09-12 00:30 | NUR ---
BIPAP REMOVED FOR ORAL CARE, PT USING YANKEUR TO CLEAR SECRETIONS, MOUTH MOISTENED WITH SPONGE AND LIP/MOUTH MOISTURIZER APPLIED, PT TOLERATED WELL.
--- NOTE | 2019-09-12 02:25 | NUR ---
ROUTINE MEDS GIVEN ORDRED, PT RESTING ON RIGHT SIDE EYES CLOSED, RESP RATE 28 ON BIPAP, BP IMPROVED, WILL CONT TO MONITOR FOR CHANGES.
--- NOTE | 2019-09-12 03:00 | NUR ---
REASSESSMENT COMPLETED, NO CHANGES FROM PREVIOUS STATUS, PT RESTING ON BIPAP EYES CLOSED, VSS, SR UP X 2, BED VISIBLE TO NURSES STATION.
--- NOTE | 2019-09-12 04:05 | NUR ---
RADIOLOGY AT BS FOR AM LAB DRAW
--- NOTE | 2019-09-12 04:23 | NUR ---
LAB AT BS FOR AM LAB DRAW, PT DENIES NEEDS, CALL LIGHT IN REACH, VSS
[2019-09-12 04:31] LABS: BASOPHILS 0.2 % (0-2); EOSINOPHILS 1.1 % (0-7); IMMATURE GRANULOCYTES 0.1 % (0-5); LYMPHOCYTES 13.8 % (15-50); MCH 29.7 pg (26.0-34.0); MCHC 32.4 g/dL (31.0-37.0); MCV 91.6 fL (80.0-100.0); MEAN PLATELET VOLUME 9.8 fL (7.4-10.4); NEUTROPHILS 75.8 % (40-80); PLATELET COUNT 148 10x3/uL (130-400); RDW 19.9 % (11.5-14.5)
[2019-09-12 04:35] LABS: HEMATOCRIT 32.7 % (42.0-54.0); HEMOGLOBIN 10.6 g/dL (13.5-17.5); RBC 3.57 10x6/uL (4.20-6.10)
[2019-09-12 05:14] LABS: CALCIUM 9.5 mg/dL (8.5-10.1); CARBON DIOXIDE 24.3 mmol/L (21.0-32.0); PHOSPHOROUS 7.5 mg/dL (2.5-4.9); POTASSIUM - SERUM 4.3 mmol/L (3.5-5.1)
[2019-09-12 05:15] LABS: CREATININE - SERUM 8.3 mg/dL (0.6-1.3)
--- NOTE | 2019-09-12 06:20 | NUR ---
DR. SHAH ON UNIT SEEING PT, UPDATE PROVIDED, AND NEW ORDERS REC'D
--- NOTE | 2019-09-12 07:00 | NUR ---
BEDSIDE REPORT RECEIVED. SHIFT ASSESSMENT COMPLETED PER FLOWSHEET, SEE FLOWSHEET FOR INFORMATION. NO ACUTE NEEDS OR DISTRESS NOTED AT THIS TIME. VSS. WILL CONT TO MONITOR.
--- NOTE | 2019-09-12 09:00 | NUR ---
AT BEDSIDE. NO ACUTE NEEDS OR DISTRESS NOTED AT THIS TIME. WILL CONT TO MONITOR.
--- NOTE | 2019-09-12 09:29 | NUR ---
Nutrition follow-up: Pt now extubated; swallow eval ordered before advancing diet to renal consistent CHO. Labs reviewed Wt: 152# RDN following.
--- NOTE | 2019-09-12 11:00 | NUR ---
ANSWERED CALL LIGHT, PUT PT ON BEDPAN. NO ACUTE NEEDS OR DISTRESS NOTED AT THIS TIME. VSS. WILL CONT TO MONITOR.
--- NOTE | 2019-09-12 15:00 | NUR ---
REASSESSMENT COMPLETED PER FLOWSHEET, SEE FLOWSHEET FOR INFORMATION. NEW ORDERS RECEIEVED, WILL CONT TO MONITOR.
[2019-09-12 16:08] LABS: FUNGUS MYCOLOGY CULTURE Preliminary report (())
--- NOTE | 2019-09-12 17:00 | NUR ---
PT DENIES ANY PAIN OR DISCOMFORT. PT SITTING IN CHAIR AT BEDSIDE. WILL CONT TO MONITOR.
--- NOTE | 2019-09-12 19:00 | NUR ---
REPORT RECEIVED. RECEIVED PATIENT IN BED ,AWAKE ALERT AND ORIENTED X 4. SPEECH CLEAR/SOFT. ASSESSMENT COMPLETED PER FLOW SHEET WITH NO ACUTE DISTRESS OBSERVED. MONITORS CONNECTED TO PATIENT WITH ALARMS SET. VSS. CALL LIGHT IN REACH AND ABLE TO UTILIZE TO MAKE NEEDS KNOWN.
--- NOTE | 2019-09-12 21:00 | NUR ---
AWAKE AND ALERT. VSS. CALL LIGHT IN REACH
--- NOTE | 2019-09-12 23:00 | NUR ---
AWAKE AND ALERT. REASSESSMENT COMPLETED PER FLOW SHEET WITH NO ACUTE DISTRESS OBSERVED. VSS. CALL LIGHT IN REACH
[2019-09-13] VITALS (13 sets, daily range): BP systolic 110–181; BP diastolic 72–125
--- NOTE | 2019-09-13 01:00 | NUR ---
RESTING WITH EYES CLOSED. VSS
--- NOTE | 2019-09-13 03:00 | NUR ---
REASSESSMENT COMPLETED PER FLOW SHEET WITH NO ACUTE DISTRESS OBSERVED. VSS. CALL LIGHT IN REACH
--- NOTE | 2019-09-13 05:00 | NUR ---
AWAKE AND ALERT. VSS
[2019-09-13 05:48] LABS: BASOPHILS 0.4 % (0-2); EOSINOPHILS 2.4 % (0-7); HEMATOCRIT 35.4 % (42.0-54.0); HEMOGLOBIN 11.7 g/dL (13.5-17.5); IMMATURE GRANULOCYTES 0.2 % (0-5); LYMPHOCYTES 18.6 % (15-50); MCH 29.8 pg (26.0-34.0); MCHC 33.1 g/dL (31.0-37.0); MCV 90.3 fL (80.0-100.0); MEAN PLATELET VOLUME 10.9 fL (7.4-10.4); MONOCYTES 7.5 % (2-11); NEUTROPHILS 70.9 % (40-80); RBC 3.92 10x6/uL (4.20-6.10); RDW 19.8 % (11.5-14.5); WBC 8.4 10x3/uL (4.8-10.8)
[2019-09-13 05:52] LABS: PLATELET COUNT 213 10x3/uL (130-400)
[2019-09-13 06:29] LABS: ANION GAP 23.9 mmol/L (8-16); CALCIUM 10.7 mg/dL (8.5-10.1); CARBON DIOXIDE 24.1 mmol/L (21.0-32.0)
[2019-09-13 06:30] LABS: CREATININE - SERUM 11.4 mg/dL (0.6-1.3); PHOSPHOROUS 10.2 mg/dL (2.5-4.9)
--- NOTE | 2019-09-13 07:00 | NUR ---
BEDSIDE REPORT RECEIVED. SHIFT ASSESSMENT COMPLETED PER FLOWSHEET, SEE FLOWSHEET FOR INFORMATION. PT IN BED RESTING WITH EYES CLOSED. NO ACUTE NEEDS OR DISTRESS NOTED AT THIS TIME. VSS. WILL CONT TO MONITOR.
--- NOTE | 2019-09-13 09:00 | NUR ---
DIEGO PAREDES AT BEDSIDE. NEW ORDERS RECEIVED. WILL CONT TO MONITOR.
--- NOTE | 2019-09-13 11:00 | NUR ---
PT SITTING ON SIDE OF BED. ASSISSTED PT TO BSC. REASSESSMENT COMPLETED PER FLOWSHEET, SEE FLOWSHEET FOR INFORMATION. NO ACUTE NEEDS OR DISTRESS NOTED AT THIS TIME. WILL CONT TO MONITOR.
--- NOTE | 2019-09-13 13:00 | NUR ---
PT SITTING ON SIDE OF BED TALKING ON CELLPHONE. NO ACUTE NEEDS OR DISTRESS NOTED AT THIS TIME. VSS. WILL CONT TO MONITOR.
--- NOTE | 2019-09-13 14:40 | NUR ---
DIALYSIS NURSE AT BEDSIDE, TAKING PT TO DIALYSIS ROOM. VSS. WILL CONT TO MONITOR.
--- NOTE | 2019-09-13 15:48 | NUR ---
REPORT CALLED TO RUBIA RUEDA. PT WILL BE TRANSFERED TO ROOM 2125. TOOK ALL OF BELONGINGS TO ROOM 2125, PT TOOK CELL PHONE, EAR BUDS, AND SMART WATCH WITH HIM TO DIALYSIS. PT STATED "I GOT ALL MY BELONGINGS IN THIS BAG, PLEASE TAKE THAT BAG TO THE ROOM FOR ME."
--- NOTE | 2019-09-13 18:41 | NUR ---
RECEIVED PT TO ROOM 2124 FROM DIALYSIS. ORINTED PT TO ROOM AND CALL [facility]. PT ASKING FOR DINNER TRAY.
--- NOTE | 2019-09-13 19:20 | NUR ---
RECEIVED REPORT, WILL ASSUME CARE OF PT, REQUESTING MOISTURE TO BE PLACED O OXYGEN(PROVIDED BY RT),ALSO UPSET THAT HE DIDNT GET HIS DINNER, WHICH DAYSHIFT NURSE HAD PROVIDED A SANDWICH, HE SAY HE COULDNT EAT SANDWICH, [employer] PROVIDED SOUP AND JELLO, DENIES ANY OTHER NEEDS AT THIS TIME, BED IS LOW, SRX2, CALL LIGHT IN REACH, WILL CONTINUE PLAN OF CARE
[2019-09-14] VITALS: BP 115/79
--- NOTE | 2019-09-14 02:07 | NUR ---
I have reviewed this patient and I concur with the Shift Assessment completed by the Licensed Practical Nurse today this shift.
[2019-09-14 07:36] VITALS: BP 131/89
--- NOTE | 2019-09-14 08:27 | NUR ---
AM MEDS GIVEN AT THIS TIME, PT UP TO SIDE OF BED, FIXING TO EAT BREAKFAST. PT A/O X4, RESP EVEN AND NONLABORED ON 3L HF. RT WRIST IV SL. MONITOR SHOWING SR WITH RATE OF 92. PT DENIES ANY NEEDS AT THIS TIME. CALL LIGHT IN REACH, NAD NOTED, WILL CONTINUE PLAN OF CARE.
[2019-09-14 11:31] VITALS: BP 120/85
[2019-09-14] MEDS ORDERED: CARAFATE1 G PO (13:54)
--- NOTE | 2019-09-14 13:56 | NUR ---
REVIEWED HOME MEDICATIONS WITH PT. HOME MED LIST UPDATED IN EMAR. PT DENIES ANY NEEDS AT THIS TIME. CALL LIGHT IN REACH, NAD NOTED, WILL CONTINUE TO MONITOR.
[2019-09-14 15:05] VITALS: BP 120/75
--- NOTE | 2019-09-14 19:20 | NUR ---
RECEIVED REPORT, WILL ASSUME CARE OF PT, DENIES ANY NEEDS, BED IS LOW, SRX2, CALL LIGHT IN REACH, WILL CONTINUE PLAN OF CARE
[2019-09-14 20:04] VITALS: BP 134/91
[2019-09-15 00:01] VITALS: BP 129/89
--- NOTE | 2019-09-15 03:31 | NUR ---
I have reviewed this patient and I concur with the Shift Assessment completed by the Licensed Practical Nurse today this shift.
[2019-09-15 05:27] LABS: BASOPHILS 0.3 % (0-2); HEMATOCRIT 38.8 % (42.0-54.0); HEMOGLOBIN 12.7 g/dL (13.5-17.5); IMMATURE GRANULOCYTES 0.3 % (0-5); LYMPHOCYTES 32.2 % (15-50); MCH 29.6 pg (26.0-34.0); MCHC 32.7 g/dL (31.0-37.0); MCV 90.4 fL (80.0-100.0); MEAN PLATELET VOLUME 10.2 fL (7.4-10.4); MONOCYTES 9.8 % (2-11); NEUTROPHILS 53.4 % (40-80); PLATELET COUNT 187 10x3/uL (130-400); RBC 4.29 10x6/uL (4.20-6.10); RDW 18.6 % (11.5-14.5)
[2019-09-15 05:28] VITALS: BP 134/93
[2019-09-15 05:45] LABS: WBC 5.7 10x3/uL (4.8-10.8)
[2019-09-15 05:51] LABS: ANION GAP 20.9 mmol/L (8-16); CALCIUM 10.6 mg/dL (8.5-10.1); CARBON DIOXIDE 23.1 mmol/L (21.0-32.0); CREATININE - SERUM 12.6 mg/dL (0.6-1.3)
[2019-09-15 08:00] VITALS: BP 137/90
--- NOTE | 2019-09-15 10:13 | NUR ---
PT TO DIALYSIS AT THIS TIME.
--- NOTE | 2019-09-15 13:44 | NUR ---
PT BACK TO ROOM 2125 FROM DIALYSIS.
[2019-09-15 16:00] VITALS: BP 110/64
--- NOTE | 2019-09-15 16:07 | NUR ---
PER JUSTICE DAMON APRN PT CAN GO HOME. PER JOSEPH DAMON FOR PT TO D/C.
--- NOTE | 2019-09-15 20:31 | NUR ---
RECIEVED DISCHARGE INSTUCTONS. VERBAL UNDERSTANDING GIVEN. ALERT AND ORIETNED X4. UP AD BRADY. SISTER HERE AND PT LEFT FLOOR IN W/C AND TRANSPORTED BY SISTER IN PERSONAL VECHICLE.
--- NOTE | 2019-09-16 09:44 | MORECARE ---
CASE MANAGEMENT DISCHARGE SUMMARY PATIENT: MIKE RUSHING UNIT: [id number] ADM DATE: 09/07/19 AGE: 34 : 89 SEX: M ROOM/BED: D.4215 AUTHOR: MARGARITA,DOC PHYSICIAN: REFERRING PHYSICIAN: KIERA CATES MD DATE OF SERVICE: 09/16/19 Discharge Plan Patient Name: MIKE RUSHING Facility: [facility]:[place] : 1985 Planned Disposition: Home Anticipated Discharge Date: 09/15/19 Discharge Date: 09/15/2019 Expected LOS: 8 Initial Reviewer: [email or web address] Initial Review Date: 09/09/2019 Generated: 09/16/19 10:43 am DCP- Discharge Planning Updated by [email or web address]: Rain Mosqueda on 09/09/19 7:[address] Patient Name: MIKE RUSHING Admission Status: ER Accout number: [id number] Admission Date: 09-07-2019 : 1985 Admission Diagnosis: Attending: KIERA CATES Current LOS: 2 Anticipated DC Date: Planned Disposition: Home Primary Insurance: MEDICARE A & B Discharge Planning Comments: CM spoke with patient's sister Myriam via phone after explaining CM role and obtaining verbal consent. Patient lives at home with his sister Myriam where he is independent with his care and plans to return there upon discharge. Patient feels this would be a safe discharge. CM discussed availability / needs of home health and medical equipment. Patient denies any discharge needs at this time. Patient has dialysis @ [facility] [address]45 Patient states he will have his family drive him home upon discharge. CM will continue to follow and assist as needed with discharge planning / needs. Road Mixer Operator: Rain Mosqueda DCP- Discharge Planning Updated by [id number]: Rain Mosqueda on 09/08/19 5:[address] CM attempted to call patients sister Myriam [phone] but didn't get anyone to answer. Patient is currently intubated and sedated on ventilator. CM will attempt to get discharge plan again later. CM will continue to follow and assist as needed with discharge planning /needs. DCPIA - Discharge Planning Initial Assessment Updated by [id number]: Rain Mosqueda on 09/09/19 8:41 pm * How many steps to enter\exit or inside your home? * PCP NO PCP * Pharmacy [facility] * Preadmission Environment Home with Family * ADLs Independent * Equipment None * List name and contact numbers for known caregivers / representatives who currently or will assist patient after discharge: MYRIAM RUSHING - [facility]- [phone] * Verbal permission to speak to the caregivers and representatives has been obtained from the patient. N/A * Community resources currently utilized None * Please name any agencies selected above. HD MWF @ [place] [phone] * Additional services required to return to the preadmission environment? No * Can the patient safely return to the preadmission environment? Yes * Has this patient been hospitalized within the prior 30 days at any hospital? Yes Last DP export: 09/09/19 7:49 p Patient Name: MIKE RUSHING Page [id number] at 0944 All edits/amendments must be made on the electronic document DICTATION DATE: 09/16/19942 TOOLING INSPECTOR: KAYCEE 09/16/19942 RPT#: [id number] DC DATE:09/15/19 STATUS: DIS IN [facility] [address] [place] [address] END OF REPORT
== END 2019-09-15 20:33 | disposition home or self-care (01) | DRG 208 ==
LOC: D.ER 13:19 → D.ICU 14:59 → D.M2 09-13 15:58
PROVIDERS: Family Medicine; Internal Medicine Nephrology; ADMIT Internal Medicine Nephrology; ATTEND Internal Medicine Nephrology
PROC: 5A1945Z Respiratory Ventilation, 24-96 Consecutive Hours (ICD-10-PCS; principal; 2019-09-07)
PROC: 0BH17EZ Insertion of Endotracheal Airway into Trachea, Via Natural or Artificial Opening (ICD-10-PCS; 2019-09-07)
DX: J96.01 Acute respiratory failure with hypoxia (principal); N18.6 End stage renal disease; J18.9 Pneumonia, unspecified organism; I12.0 Hypertensive chronic kidney disease with stage 5 chronic kidney disease or end stage renal disease; B20 Human immunodeficiency virus [HIV] disease; F17.203 Nicotine dependence unspecified, with withdrawal; Z99.2 Dependence on renal dialysis; D63.1 Anemia in chronic kidney disease; Z91.14 Patient's other noncompliance with medication regimen; E83.39 Other disorders of phosphorus metabolism; E87.5 Hyperkalemia; E87.70 Fluid overload, unspecified; Z91.11 Patient's noncompliance with dietary regimen

== ENCOUNTER → 2019-10-27 14:39 | Outpatient (CLI) | payer SELFPAY ==
[2019-09-08 09:16] VITALS: BMI 25.8
== END | disposition home or self-care (01) ==
LOC: D.RAD 14:39
PROVIDERS: ATTEND Internal Medicine Nephrology
DX: R06.02 Shortness of breath (principal)

== ENCOUNTER 2019-12-02 08:08 | Outpatient (CLI) | payer MEDICARE ==
[~2019-12-02] VITALS: Ht 175.3 cm; Wt 68.2 kg
--- NOTE | ~2019-12-02 | HEMODYNAMI ---
PATIENT:MIKE RUSHING MEDICAL RECORD: [id number] : 89 LOCATION:DFELIPE ADMISSION DATE: 12/02/19 Generatedon:12/02/201910:16 Patient name: MIKE RUSHING Patient #: [id number] SSN: [id number] : 1985 Date of study: 12/02/2019 Page: Of Hemodynamic Procedure Report Patient Data Patient Demographics Procedure consent was obtained First Name: MIKE Gender: Male Last Name: KRISTAN : 1985 Patient #: [id number] Age: 34 year(s) Race: Black SSN: [id number] Additional ID: [id number] Contact details Address: [address] [place] [address] [place] State: [place] City: [place] Zip code: [address] Past Medical History Allergies: No known allergies Admission Admission Data Admission Date: 12/02/2019 Admission Time: 8:08 Arrival Date: 12/02/2019 Arrival Time: 0:00 Insurance Payor: Medicare [facility] #: [id number] Height (in.): 68.9 BSA: 1.83 (m2) Height (cm.): 175 BMI: 22.2 (kg/m2) Weight (lbs.): 149.92 Weight (kg.): 68 Lab Results Lab Result Date: 12/02/2019 Lab Result Time: 0:00 Biochemistry Name Units Result Min Max BUN mg/dl 32 --(----)-* 7 18 Creatinine mg/dl 14.3 --(----)-* 0.6 1.3 eGFR ml/min 5 *-(----)-- 90 120 AM CBC Name Units Result Min Max Hematocrit % 37.6 *-(----)-- 42 54 Hemoglobin g/dl 11.9 *-(----)-- 13.5 17.5 Procedure Procedure Types Cath Procedure Diagnostic Procedure LHC LHC w/Coronaries Procedure Description Procedure Date Procedure Date: 12/02/2019 Procedure Start Time: 10:07 Procedure End Time: 10:14 Procedure Staff Name Function Pete Wall MD Performing Physician Megha Jung RT Monitor Frances Bush RN Nurse Aissatou Romano RT Scrub Procedure Data Cath Procedure Fluoroscopy Diagnostic fluoroscopy Total fluoroscopy Time: 0.7 time: 0.7 min min Diagnostic fluoroscopy Total fluoroscopy dose: dose: 58.48 mGy 58.48 mGy Contrast Material Contrast Material Type Amount (ml) Isovue 300 32 Entry Location Entry Primary Successful Side Size Upsize Upsize Entry Closure Succes sful Closure Location (Fr) 1 (Fr) 2 (Fr) Remarks Device Remarks Femoral Right 5 Fr Exoseal artery Estimated blood loss: 5 ml Diagnostic catheters Device Type Used For End Catheter Placement MULTIPACK Pigtail 5 Fr LV Angiography catheter MULTIPACK JL 4.0 5Fr Left Coronary catheter Angiography MULTIPACK 3DRC 5Fr Right Coronary catheter Angiography Procedure Complications No complications Procedure Medications Medication Administration Route Dosage Oxygen etCO2 Nasal cannula 2 l/min Lidocaine 2% added to field 20 Heparin Flush Bag added to field 2 bags (1000units/500ml NS) 0.9% NaCl I.V. 100 ml/hr Versed I.V. 2 mg Fentanyl I.V. 50 mcg Versed I.V. 2 mg Fentanyl I.V. 50 mcg Hemodynamics Rest BSA: 1.83 (m2) HGB: 11.9 (g/dl) O2 Consumption: Estimated: 235.8 (ml/min) O2 Con sumption indexed: Estimated:128.85 (ml/min/m) Heart Rate: 81 (bpm) Snapshots Pre Cath Intra NCS Post Cath Vital Signs Time Heart Resp SPO2 etCO2 NIBP (mmHg) Rhythm Pain Sedation Rate (ipm) (%) (mmHg) Status Level (bpm) 9:52:21 97 15 98 33.6 Measuring NSR (Missing) 10(A) 9:52:40 90 18 99 31.4 183/73(112) NSR (Missing) 10(A) 9:57:00 93 16 100 38.1 158/110(125) NSR (Missing) 10(A) 10:01:16 91 20 100 38.1 153/107(136) NSR (Missing) 10(A) 10:05:30 93 25 100 38.1 154/102(128) NSR (Missing) 10(A) 10:09:44 89 16 100 18.6 160/103(134) NSR (Missing) 10(A) 10:13:58 99 15 100 38.8 158/102(129) NSR (Missing) 10(A) Medications Time Medication Route Dose Verified Delivered Reason Notes Eff ectiveness by by 9:51:36 Oxygen etCO2 2 Pete Robertoie used for Nasal l/min Duke Bush RN procedure cannula 9:51:42 Lidocaine 2% added 20ml Pete Pete for local to vial Duke Wall MD anesthetic field 9:51:48 Heparin Flush added 2 Pete Pete used for Bag to bags Duke Wall MD procedure (1000units/500ml field NS) 9:51:58 0.9% NaCl I.V. 100 Petesanto Daniels Per ml/hr Duke Bush RN physician 10:06:46 Versed I.V. 2 mg Pete Daniels for Duke Bush RN sedation 10:06:53 Fentanyl I.V. 50 Pete Daniels for mcg Duke Bush RN sedation 10:10:35 Versed I.V. 2 mg Pete Daniels for Duke Bush RN sedation 10:10:39 Fentanyl I.V. 50 Pete Daniels for mcg Duke Bush RN sedation Procedure Log Time Note 9:37:35 Frances Bush RN sent for patient. Start room use. 9:41:08 Informed consent obtained and on chart 9:42:31 Lab Result : Hemoglobin 11.9 g/dl 9:42:31 Lab Result : eGFR AM 5 ml/min 9:42:31 Lab Result : BUN 32 mg/dl 9:42:31 Lab Result : Creatinine 14.3 mg/dl 9:42:31 Lab Result : Hematocrit 37.6 % 9:43:24 Arrival Date: 12/02/2019 12:00:00 AM 9:43:32 Procedure Status Elective Heart Cath (OP). 9:43:38 Time tracking: Regular hours (M-F 7:00 - 5:00) 9:43:44 Plan of Care:Hemodynamics will remain stable., Cardiac rhythm will remain stable., Comfort level will be maintained., Respiratory function will remain adequate., Patient/ family verbilizes understanding of procedure., Procedure tolerated without complication., Recovers from procedure without complications.. 9:43:52 Patient received from Pre/Post Procedure Room to CCL 3 Alert and oriented. Tansferred to table in Supine position. 9:44:24 Warm blankets applied, and renato hugger turned on for patient comfort. 9:44:25 Correct patient and procedure confirmed by team. 9:44:26 ECG and BP/O2 sat monitors applied to patient. 9:44:33 ACC Patient presents with Stable Angina CCS Anginal Class 3--Marked limitation of physical activity, angina occurs with ordinary activity.. 9:44:47 Patient allergic to No known allergies 9:46:48 Risk of Mortality: 3.0 9:46:54 Risk of blood transfusion: 5.1 9:46:58 Risk of MARVIN: 23.3 9:48:07 Stress Test: yes; abnormal INFERIOR PREVIOUS INFARCT/ALL SEGEMENTS 9:50:32 Vital chart was started 9:50:33 Baseline sample Acquired. 9:50:34 [place] left arm, fistula present. Pt has dialysis on Mondays and Fridays. 9:50:34 Full Disclosure recording started 9:50:39 Rhythm: sinus rhythm 9:50:54 H&P Date Dictated: 12/02/2019 H&P Addendum completed by physician on day of procedure. (MUST COMPLETE FOR ALL OUTPATIENTS), New H&P dictated by physician.. 9:50:56 Pre-procedure instructions explained to patient. 9:50:57 Pre-op teaching completed and patient verbalized understanding. 9:51:00 Family in patients room. 9:51:02 Patient NPO since Midnight. 9:51:11 Is the patient allergic to Iodine/contrast media? No. 9:51:14 Was the patient premedicated? Yes 9:51:16 Is patient on blood thinner?No 9:51:21 Patient diabetic? No. 9:51:23 - 9:51:24 ----Pre-sedation anethsthesia assessment.---- 9:51:28 Previous problem with sedation/anesthesia? No ? 9:51:30 Snore? Yes 9:51:32 Sleep apnea? No 9:51:35 Deviated septum? No 9:51:36 Oxygen 2 l/min etCO2 Nasal cannula was administered by Frances Bush RN; used for procedure; Verbal order read back and verified. 9:51:37 Opens mouth fully? Yes 9:51:39 Sticks out tongue? Yes 9:51:42 Lidocaine 2% 20ml vial added to field was administered by Pete Wall MD; for local anesthetic; Verbal order read back and verified. 9:51:42 Airway obstruction? No ? 9:51:45 Dentures? No ? 9:51:48 Heparin Flush Bag (1000units/500ml NS) 2 bags added to field was administered by Pete Wall MD; used for procedure; Verbal order read back and verified. 9:51:58 0.9% NaCl 100 ml/hr I.V. was administered by Frances Bush RN; Per physician; Verbal order read back and verified. 9:52:31 Pre procedure: right dorsailis pedis pulse 1+ Palpable, but thready & weak; easily obliterated 9:52:53 IV patent on arrival in right forearm with 0.9% NaCl at [facility]. 9:52:57 Lab results completed and on chart. 9:53:02 Right groin area was prepped with chlora-prep and draped in sterile fashion 9:53:04 Alarms reviewed by R. N. 9:53:04 Sharps counted by scrub and verified by R.N. 9:53:10 Use device set Femoral Dx 9:53:12 ACIST Syringe (47936) opened to sterile field. 9:53:12 Bag Decanter (2002) opened to sterile field. 9:53:13 Medline Cath Pack ([id number]) opened to sterile field. 9:53:15 ACIST Hand Control (89059) opened to sterile field. 9:53:15 ACIST Manifold (03760) opened to sterile field. 9:53:16 DIAGNOSTIC Multipack 5Fr catheter set ([id number]) opened to sterile field. 9:53:18 Tegaderm 4 x 4 (1626W) opened to sterile field. 9:53:20 SHEATH 5FR Fruit[place] (ZNY407) opened to sterile field. 9:53:24 EMERALD Guide Wire (680-938) opened to sterile field. 9:53:59 Insurance Payor : Medicare 9:54:04 Patient Height : 68.9 inches 9:54:12 Patient Weight : 149.92 lbs 9:59:38 Zero performed for pressure channel P1 10:02:53 PATIENT DIALYSIS ON SUNDAY AND SUNDAY. 10:03:20 PATIENT IS A RESERVE LEFT ARM. 10:06:06 Physician arrived 10::07 --------ALL STOP TIME OUT------ 10:06:07 Final Timeout: patient, procedure, and site verified with staff and physician. All members of the team are in agreement. 10:06:09 Right groin site verified by team. 10:06:15 Fire Safety Assessment: A--An alcohol-based skin anteseptic being used preoperatively., C--Open oxygen or nitrous oxide is being used., D--An ESU, laser, or fiber-optic light is being used. 10:06:21 Physical assessment completed. ASA score P 2 - A patient with mild systemic disease as per Pete Wall MD. 10:06:46 Versed 2 mg I.V. was administered by Frances Bush RN; for sedation; Verbal order read back and verified. 10:06:53 Fentanyl 50 mcg I.V. was administered by Frances Bush RN; for sedation; Verbal order read back and verified. 10:07:08 5) <15 or on dialysis Very severe, or end stage kidney failure. 10:07:11 Maximum allowable contrast dose (3.7 X eGFR X 0.75)14 ml. 10:07:17 Sedation plan: IV Moderate Sedation Medication:Versed, Fentanyl 10:07:24 Procedure started. 10:07:29 Local anesthetic to right femoral artery with Lidocaine 2% by Pete Wall MD.INITIAL ACCESS ONLY 10:08:03 A 5 Fr sheath was inserted into the Right Femoral artery 10:08:18 A MULTIPACK Pigtail 5 Fr catheter was advanced over the wire and used for LV Angiography. 10:08:24 LV gram done using VILLAVICENCIO 10:08:36 EF : 40 % 10:08:40 Injector settings: Ml/sec: 5, Volume: 15, 10:08:44 Catheter removed. 10:08:50 A MULTIPACK JL 4.0 5Fr catheter was advanced over the wire and used for Left Coronary Angiography. 10:08:56 Injector settings: Ml/sec: 3, Volume: 6, 10:09:14 LCA angiography performed. 10:09:57 Catheter removed. 10:10:03 A MULTIPACK 3DRC 5Fr catheter was advanced over the wire and used for Right Coronary Angiography. 10:10:11 Injector settings: Ml/sec: 3, Volume: 6, 10:10:20 RCA angiography performed. 10:10:32 EXOSEAL 5Fr (EX500) opened to sterile field. 10:10:34 Catheter removed. 10:10:35 Versed 2 mg I.V. was administered by Frances Bush RN; for sedation; Verbal order read back and verified. 10:10:39 Fentanyl 50 mcg I.V. was administered by Frances Bush RN; for sedation; Verbal order read back and verified. 10:11:00 Sheath removed intact; hemostasis achieved with Exoseal to the Right Femoral artery. 10:11:10 Contrast amount:Isovue 300 32ml. 10:11:13 Maximum allowable dose exceeded? Yes. 10:11:16 Procedure ended.(Physican Out) 10:11:34 Fluoroscopy time 00.70 minutes. 10:11:43 Fluoroscopy dose: 58.48 mGy 10:11:43 Flurop Dose total: 58.48 10:12:01 Dose Area Product 413.54 mGy/cm. 10:12:03 Sharps counted by scrub and verified by R.N. 10:12:05 Insertion/operative site no bleeding no hematoma. 10:12:10 Post-op/insertion site Right Femoral artery dressed using a 4 x 4 and Tegaderm. 10:12:15 Post right femoral artery:stable 10:12:17 Post Procedure Pulses reassessed and unchanged 10:12:24 Post-procedure physical assessment completed. ASA score P 2 - A patient with mild systemic disease as per Pete Wall MD. 10:12:28 Post procedure rhythm: unchanged. 10:12:40 Estimated blood loss: 5 ml 10:12:53 Post procedure instruction explained to patient.Patient verbalizes understanding. 10:12:54 Patient needs reinforcement of post procedure teaching. 10:13:05 Procedure and supply charges have been captured, reviewed, submitted an d are correct. 10:13:57 Procedure Complication : No complications 10:14:02 Vital chart was stopped 10:14:04 [facility] Findings: mild to moderate CAD (<70%) 10:14:06 Operative report dictated upon procedure completion. 10:14:07 See physician's report for complete and final results. 10:14:10 Report given to Pre/Post Procedure Room. 10:14:14 Patient transfered to Pre/Post Procedure Room with Stretcher. 10:14:18 Procedure ended. 10:14:18 Full Disclosure recording stopped 10:14:22 End room use (Document Last) Device Usage Item Name Manufacture Quantity Catalog Hospital Part Current Minimal L ot# / Number Charge Number Stock Stock Serial# Code ACIST Acist 1 54912 079242 655748 407492 20 Syringe Medical (68359) Systems Inc Bag Microtek 1 224599 53873 733062 5 Decanter Medical Inc. () Medline Medline 1 [id number] 792090 28864 435573 5 Cath Pack ([id number]) ACIST Hand Acist 1 73136 312255 993346 017388 5 Control Medical (89533) Systems Inc ACIST Acist 1 32890 603810 576936 404458 5 Manifold Medical (23306) Systems Inc DIAGNOSTIC Cardinal 1 DR2409 303212 59156 628314 30 Multipack Health 5Fr catheter set (EO5614) Tegaderm 4 3M 1 1626W 428330 957228 353330 5 x 4 (1626W) SHEATH 5FR Terumo 1 PNE475 716815 541539 271683 5 [place] (XOH119) EMERALD Cardinal 1 502-455 417712 131777 186788 5 Guide Wire Health (502-455) MULTIPACK Cardinal 1 533426 5 Pigtail 5 Health Fr catheter MULTIPACK Cardinal 1 887042 5 JL 4.0 5Fr Health catheter MULTIPACK Cardinal 1 327220 5 3DRC 5Fr Health catheter EXOSEAL 5Fr Cardinal 1 EX500 227895 028029 063089 10 (EX500) Health Signature Audit Johnston Stage Time Signature Unsigned Intra-Procedure 12/02/2019 Megha 10:15:18 AM Fabiana RT(R) (CV) Intra-Procedure 12/02/2019 Frances Bush RN 10:15:43 AM Intra-Procedure 12/02/2019 Pete Wall 10:16:[address] [facility] [address] [place] [address]
[2019-12-02 09:00] VITALS: BP 158/111; Ht 175.3 cm; Wt 68.2 kg
[2019-12-02 09:20] LABS: BASOPHILS 0.2 % (0-2); HEMATOCRIT 37.6 % (42.0-54.0); HEMOGLOBIN 11.9 g/dL (13.5-17.5); LYMPHOCYTES 42.1 % (15-50); MCH 30.4 pg (26.0-34.0); MCHC 31.6 g/dL (31.0-37.0); MCV 96.2 fL (80.0-100.0); MEAN PLATELET VOLUME 9.9 fL (7.4-10.4); MONOCYTES 7.8 % (2-11); NEUTROPHILS 47.9 % (40-80); PLATELET COUNT 180 10x3/uL (130-400); RBC 3.91 10x6/uL (4.20-6.10); RDW 14.6 % (11.5-14.5); WBC 4.5 10x3/uL (4.8-10.8)
[2019-12-02 09:27] LABS: ANION GAP 16.6 mmol/L (8-16); CALCIUM 10.2 mg/dL (8.5-10.1); CARBON DIOXIDE 27.1 mmol/L (21.0-32.0); CREATININE - SERUM 14.3 mg/dL (0.6-1.3); POTASSIUM - SERUM 4.7 mmol/L (3.5-5.1)
[2019-12-02 09:40] LABS: CHOL - HDL RATIO 2.4 ratio (2.3-4.9); LDL-HDL RATIO 1.1 ratio (1.5-3.5)
--- NOTE | 2019-12-02 10:25 | NUR ---
PT ARRIVED BY STRETCHER TO ROOM. PLACED ON MONITORS. RESTING COMFORTABLY. VSS. CALL LIGHT WITHIN REACH. NO FAMILY AT BEDSIDE AT THIS TIME.
--- NOTE | 2019-12-02 10:40 | NUR ---
RIGHT GROIN DRESSING C/D/I. NO S/S OF HEMATOMA NOTED. CALL LIGHT WITHIN REACH. VSS. PT RESTING COMFORTABLY.
--- NOTE | 2019-12-02 11:10 | NUR ---
RIGHT GROIN DRESSING C/D/I. NO S/S OF HEMATOMA NOTED. CALL LIGHT WITHIN REACH. VSS.
--- NOTE | 2019-12-02 11:20 | NUR ---
RIGHT GROIN DRESSING C/D/I. NO S/S OF HEMATOMA NOTED. HEAD OF BED INC TO 30 DEGREES. TOLERATED WELL. SET UP WITH SANDWICH TRAY AND DRINK.
--- NOTE | 2019-12-02 12:05 | NUR ---
RIGHT GROIN DRESSING C/D/I. NO S/S OF HEMATOMA NOTED. PIV D/C'D WITH CATH TIP INTACT. TOLERATED WELL. VSS. PT INSTRUCTED TO GET UP AND DRESSED AT THIS TIME. NO ASSISTANCE NEEDED. CALL LIGHT WITHIN REACH.
--- NOTE | 2019-12-02 12:10 | NUR ---
DISCUSSED DISCHARGE INSTRUCTIONS WITH PT. HE VOICED UNDERSTANDING. GIVEN WORK EXCUSE WITH DISCHARGE PAPERWORK.
--- NOTE | 2019-12-02 12:15 | NUR ---
PT CALLED [facility]. WAITING FOR THEM TO ARRIVE. RIGHT GROIN DRESSING C/D/I. NO S/S OF HEMATOMA NOTED.
--- NOTE | 2019-12-02 12:40 | NUR ---
PT'S [facility] ARRIVED. PT SHOWING NO S/S OF DISTRESS. ALL BELONGINGS AND PAPERWORK IN HAND.
--- NOTE | 2019-12-04 16:48 | OP ---
PATIENT NAME: MIKE RUSHING MEDICAL RECORD: [id number] :89 LOCATION:D.CAT ADMISSION DATE: SURGEON: KELSY SEVILLA MD DATE OF OPERATION: 12/02/2019 PROCEDURES: 1. Left heart catheterization. 2. Selective coronary angiography. 3. Left ventriculogram. INDICATION: Cardiomyopathy, abnormal nuclear stress test. PROCEDURE IN DETAIL: After informed consent was obtained and after a detailed description of risks, benefits as well as alternative therapies, the patient elected to proceed with angiogram and heart catheterization. The right femoral area was prepped and draped in normal sterile fashion. Right femoral artery was cannulated via modified Seldinger technique with placement of 5-Montserratian sheath. All catheters exchanged through this sheath. FINDINGS: The left ventriculogram was performed in standard 30-degree VILLAVICENCIO view, reveals global hypokinesis, ejection fraction 35% to 40%. SELECTIVE CORONARY ANGIOGRAPHY: Left main, left anterior descending, left circumflex, right coronary artery are all smooth-walled vessels with no angiographic evidence of coronary artery disease. OVERALL IMPRESSION: 1. No angiographic evidence of coronary artery disease. 2. Normal left heart pressures. 3. Global hypokinesis, ejection fraction in the 35% to 40% range. Center medical management on treatment of the cardiomyopathy. TRANSINT:[id number] Voice Confirmation ID: [id number] DOCUMENT ID: [id number] KELSY SEVILLA MD at 1648 CC: [id number] DICTATION DATE: 12/02/19 1016 LINOTYPIST: 12/02/19 1200 DEP CLI 12/02/19 [place] [id number] [place] [id number]
== END 2019-12-02 12:40 | disposition home or self-care (01) ==
LOC: D.CATH 08:08
PROVIDERS: ATTEND Internal Medicine Interventional Cardiology
DX: R94.30 Abnormal result of cardiovascular function study, unspecified (principal); I42.9 Cardiomyopathy, unspecified; N18.6 End stage renal disease; I10 Essential (primary) hypertension; Z72.0 Tobacco use; R00.2 Palpitations; I20.9 Angina pectoris, unspecified; R06.09 Other forms of dyspnea

== ENCOUNTER 2019-12-26 04:02 | Inpatient (IN) | payer MEDICARE ==
[~2019-12-26] VITALS: Ht 175.3 cm; Wt 72.7 kg
[2019-12-26 04:25] LABS: BASOPHILS 0.1 % (0-2); EOSINOPHILS 1.4 % (0-7); HEMATOCRIT 31.5 % (42.0-54.0); HEMOGLOBIN 9.7 g/dL (13.5-17.5); IMMATURE GRANULOCYTES 0.1 % (0-5); LYMPHOCYTES 19.2 % (15-50); MCH 29.3 pg (26.0-34.0); MCHC 30.8 g/dL (31.0-37.0); MCV 95.2 fL (80.0-100.0); MEAN PLATELET VOLUME 9.7 fL (7.4-10.4); MONOCYTES 6.7 % (2-11); NEUTROPHILS 72.5 % (40-80); RBC 3.31 10x6/uL (4.20-6.10); RDW 14.8 % (11.5-14.5); WBC 7.3 10x3/uL (4.8-10.8)
[2019-12-26 04:35] LABS: PLATELET COUNT 125 10x3/uL (130-400)
[2019-12-26 04:41] VITALS: BP 194/130
[2019-12-26 04:54] LABS: ANION GAP 24.2 mmol/L (8-16); CALCIUM 9.7 mg/dL (8.5-10.1); CARBON DIOXIDE 23.6 mmol/L (21.0-32.0); POTASSIUM - SERUM 5.8 mmol/L (3.5-5.1)
[2019-12-26 04:55] LABS: CREATININE - SERUM 25.4 mg/dL (0.6-1.3)
[2019-12-26 04:58] LABS: ALBUMIN 3.8 g/dL (3.4-5.0); BILIRUBIN - TOTAL 0.47 mg/dL (0.2-1.3); PROTEIN - SERUM 8.2 g/dL (6.4-8.2)
[2019-12-26 05:04] LABS: MAGNESIUM - SERUM 3.7 mg/dL (1.8-2.4)
[2019-12-26 05:33] VITALS: BP 198/122
[2019-12-26 06:24] VITALS: BP 186/118; BMI 238.4
[2019-12-26 09:41] VITALS: BMI 24.3
[2019-12-26 10:03] VITALS: Ht 175.3 cm; Wt 72.7 kg
[2019-12-26 10:19] VITALS: BP 181/112
[2019-12-26 12:59] VITALS: BP 174/107
[2019-12-26 20:00] VITALS: BP 169/107
[2019-12-27] VITALS: BP 167/114
[2019-12-27 04:30] VITALS: BP 163/102
[2019-12-27 04:40] LABS: BASOPHILS 0.2 % (0-2); EOSINOPHILS 1.7 % (0-7); HEMATOCRIT 27.1 % (42.0-54.0); HEMOGLOBIN 8.1 g/dL (13.5-17.5); IMMATURE GRANULOCYTES 0.2 % (0-5); LYMPHOCYTES 15.9 % (15-50); MCHC 29.9 g/dL (31.0-37.0); MCV 97.1 fL (80.0-100.0); MEAN PLATELET VOLUME 11.1 fL (7.4-10.4); MONOCYTES 6.8 % (2-11); NEUTROPHILS 75.2 % (40-80); PLATELET COUNT 105 10x3/uL (130-400); RBC 2.79 10x6/uL (4.20-6.10); RDW 14.6 % (11.5-14.5)
[2019-12-27 04:43] LABS: WBC 5.3 10x3/uL (4.8-10.8)
[2019-12-27 04:54] LABS: ANION GAP 15.7 mmol/L (8-16); CALCIUM 9.1 mg/dL (8.5-10.1); CARBON DIOXIDE 29.4 mmol/L (21.0-32.0); CREATININE - SERUM 19.7 mg/dL (0.6-1.3); MAGNESIUM - SERUM 2.9 mg/dL (1.8-2.4); PHOSPHOROUS 8.1 mg/dL (2.5-4.9); POTASSIUM - SERUM 5.1 mmol/L (3.5-5.1)
[2019-12-27 08:21] VITALS: BP 140/87
--- NOTE | 2019-12-27 15:16 | MORECARE ---
CASE MANAGEMENT DISCHARGE SUMMARY PATIENT: MIKE RUSHING UNIT: [id number] ADM DATE: 12/26/19 AGE: 34 : [birth year] SEX: M ROOM/BED: D.2105 AUTHOR: DEANDRE AVILA PHYSICIAN: REFERRING PHYSICIAN: NAA SHAH MD DATE OF SERVICE: 12/27/19 Discharge Plan Patient Name: MIKE RUSHING [facility] [facility] 1985 Planned Disposition: Home Anticipated Discharge Date: 12/27/19 Discharge Date: Expected LOS: 1 Initial Reviewer: [email or web address] Initial Review Date: 12/26/2019 Generated: 12/27/19 4:16 pm DCP- Discharge Planning Updated by [email or web address]: Dunia Trevino on 12/26/19 8:[address] BOB SERVED, EXPLAINED, AND SIGNED BY PATIENT. THE ORIGINAL WAS PROVIDED TO THE PATIENT AND COPY PLACED ON CHART. Coverage Notice Reviewer: [email or web address] - Dunia Trevino Notice Issued Date-Time: 12/26/2019 9:45 Notice Type: Medicare Outpatient Observation Notice Notice Delivered To: Patient Relationship to Patient: Tobacco Grower Name: Delivery Method: HAND - Hand Delivered Jeannine Days: Prior Verbal Notification: Recipient Understood Notice: Yes Recipient Signature: Yes Med Rec Note Co-signed by Attending: Coverage Notice Comment: BOB SERVED, EXPLAINED, AND SIGNED BY PATIENT. THE ORIGINAL WAS PROVIDED TO THE PATIENT AND COPY PLACED ON CHART. Patient Name: MIKE RUSHING Page [phone] at 1516 All edits/amendments must be made on the electronic document DICTATION DATE: 12/27/19 1516 PAPER CONE MACHINE TENDER: KAYCEE 12/27/19 1516 RPT#: [id number] DC DATE: STATUS: ADM IN [facility] [address] [place] [address] END OF REPORT
--- NOTE | 2019-12-27 15:23 | MORECARE ---
CASE MANAGEMENT DISCHARGE SUMMARY PATIENT: MIKE RUSHING UNIT: [id number] ADM DATE: 12/26/19 AGE: 34 : 87 SEX: M ROOM/BED: D.2105 AUTHOR: DEANDRE AVILA PHYSICIAN: REFERRING PHYSICIAN: NAA SHAH MD DATE OF SERVICE: 12/27/19 Discharge Plan Patient Name: MIKE RUSHING Facility: [facility]:[place] : 1985 Planned Disposition: Home Anticipated Discharge Date: 12/27/19 Discharge Date: Expected LOS: 1 Initial Reviewer: [email or web address] Initial Review Date: 12/26/2019 Generated: 12/27/19 4:22 pm DCP- Discharge Planning Updated by [email or web address]: Dunia Trevino on 12/26/19 8:[address] BOB SERVED, EXPLAINED, AND SIGNED BY PATIENT. THE ORIGINAL WAS PROVIDED TO THE PATIENT AND COPY PLACED ON CHART. DCPIA - Discharge Planning Initial Assessment Updated by [email or web address]: Ct Ayala on 12/27/19 3:21 pm * Is the patient Alert and Oriented? Yes * How many steps to enter\exit or inside your home? 4-5 / rail * PCP No PCP * [facility] * Preadmission Environment Home with Family * ADLs Independent * Equipment None * Other Equipment Denies any DME * List name and contact numbers for known caregivers / representatives who currently or will assist patient after discharge: Anni Rushing - [facility]- [phone] * Verbal permission to speak to the caregivers and representatives has been obtained from the patient. No * Community resources currently utilized None * Please name any agencies selected above. N/A * Additional services required to return to the preadmission environment? No * Can the patient safely return to the preadmission environment? Yes * Has this patient been hospitalized within the prior 30 days at any hospital? No Coverage Notice Reviewer: [email or web address] Artemio Trevino Notice Issued Date-Time: 12/26/2019 9:45 Notice Type: Medicare Outpatient Observation Notice Notice Delivered To: Patient Relationship to Patient: Electric Arc Furnace Operator Name: Delivery Method: HAND - Hand Delivered Jeannine Days: Prior Verbal Notification: Recipient Understood Notice: Yes Recipient Signature: Yes Med Rec Note Co-signed by Attending: Coverage Notice Comment: BOB SERVED, EXPLAINED, AND SIGNED BY PATIENT. THE ORIGINAL WAS PROVIDED TO THE PATIENT AND COPY PLACED ON CHART. Last DP export: 12/27/19 2:16 p Patient Name: MIKE RUSHING Page [phone] at 1523 All edits/amendments must be made on the electronic document DICTATION DATE: 12/27/19 152 WHISKEY FILTERER: KAYCEE 12/27/19 1522 RPT#: [id number] DC DATE: STATUS: ADM IN [facility] [address] [place] [address] END OF REPORT
--- NOTE | 2019-12-27 15:42 | MORECARE ---
CASE MANAGEMENT DISCHARGE SUMMARY PATIENT: MIKE RUSHING UNIT: [id number] ADM DATE: 12/26/19 AGE: 34 : 89 SEX: M ROOM/BED: D.2105 AUTHOR: DEANDRE AVILA PHYSICIAN: REFERRING PHYSICIAN: NAA SHAH MD DATE OF SERVICE: 12/27/19 Discharge Plan Patient Name: MIKE RUSHING Facility[facility]:[place] : 1985 Planned Disposition: Home Anticipated Discharge Date: 12/27/19 Discharge Date: Expected LOS: 1 Initial Reviewer: [email or web address] Initial Review Date: 12/26/2019 Generated: 12/27/19 4:41 pm Comments DCP- Discharge Planning Updated by [email or web address]: Ct Ayala on 12/27/19 2:[address] PATIENT RETURNED TO [facility] FROM HEMODIALYSIS. HE HAS BEEN DISCHARGED TO HOME. CM SPOKE WITH THE PATIENT. EXPLAINED MY ROLE AND REQUESTED PERMISSION TO PROCEED WITH INITIAL ASSESSMENT. OBTAINED PATIENT CONSENT. HE IS PLANNING DISCHARGE TO HOME. HIS FRIEND WILL BE PROVIDING TRANSPORTATION AT DISCHARGE. CM VERIFIED CONTACT INFORMATION ON THE FACE SHEET. HIS SISTER, MYRIAM, REMAINS HIS QUALITY CONTROL SPECIALIST AND HER NUMBER IS CORRECT. PATIENT IS NOT RECEIVING ANY COMMUNITY OR HOME HEALTH SERVICES. HE HAS NO DME. HE IS ON NASAL O2 AT 2-3 LITERS VIA NASAL CANNULA. HE DOES NOT HAVE OXYGEN AT HOME. COREY SPOKE WITH HIS PRIMARY NURSE, ОЛЬГА, TO CHECK O2 SAT ON RM AIR. PATIENT IS SCHEDULED FOR HD ON MONDAYS AND FRIDAYS AM SHIFT. HE STATES HIS TRANSPORTATION FOR HD IS BY [facility]. PCP- PATIENT IS STILL WITHOUT A PCP. PHARMACY- [facility] [address] PATIENT DENIES ANY NEEDS. PRIMARY NURSE REPORTS O2 SAT 97% AT REST ON ROOM AIR. PLANNING FOR DISCHARGE TODAY. DCP- Discharge Planning Updated by [email or web address]: Dunia Trevino on 12/26/19 8:[address] BOB SERVED, EXPLAINED, AND SIGNED BY PATIENT. THE ORIGINAL WAS PROVIDED TO THE PATIENT AND COPY PLACED ON CHART. DCPIA - Discharge Planning Initial Assessment Updated by [id number]: Ct Ayala on 12/27/19 3:21 pm * Is the patient Alert and Oriented? Yes * How many steps to enter\exit or inside your home? 4-5 / rail * PCP No PCP * [facility] [address] [facility] * Preadmission Environment Home with Family * ADLs Independent * Equipment None * Other Equipment Denies any DME * List name and contact numbers for known caregivers / representatives who currently or will assist patient after discharge: Myriam Rushing - [facility]- [phone] * Verbal permission to speak to the caregivers and representatives has been obtained from the patient. No * Community resources currently utilized None * Please name any agencies selected above. N/A * Additional services required to return to the preadmission environment? No * Can the patient safely return to the preadmission environment? Yes * Has this patient been hospitalized within the prior 30 days at any hospital? No Coverage Notice Reviewer: [email or web address] Artemio Trevino Notice Issued Date-Time: 12/26/2019 9:45 Notice Type: Medicare Outpatient Observation Notice Notice Delivered To: Patient Relationship to Patient: Jail Keeper Name: Delivery Method: HAND - Hand Delivered Jeannine Days: Prior Verbal Notification: Recipient Understood Notice: Yes Recipient Signature: Yes Med Rec Note Co-signed by Attending: Coverage Notice Comment: LISBETH SERVED, EXPLAINED, AND SIGNED BY PATIENT. THE ORIGINAL WAS PROVIDED TO THE PATIENT AND COPY PLACED ON CHART. Last DP export: 12/27/19 2:23 p Patient Name: MIKE RUSHING Page [phone] at 1542 All edits/amendments must be made on the electronic document DICTATION DATE: 12/27/19 1541 BRICK STACKER: KAYCEE 12/27/19 1541 RPT#: [id number] DC DATE: STATUS: ADM IN [facility] [address] [place] [address] END OF REPORT
--- NOTE | 2019-12-28 15:53 | MORECARE ---
CASE MANAGEMENT DISCHARGE SUMMARY PATIENT: MIKE RUSHING UNIT: [id number] ADM DATE: 12/26/19 AGE: 34 : 89 SEX: M ROOM/BED: D.2104 AUTHOR: DEANDRE AVILA PHYSICIAN: REFERRING PHYSICIAN: NAA SHAH MD DATE OF SERVICE: 12/28/19 Discharge Plan Patient Name: MIKE RUSHING Facility: [facility]:[place] : 1985 Planned Disposition: Home Anticipated Discharge Date: 12/27/19 Discharge Date: 12/27/2019 Expected LOS: 1 Initial Reviewer: [id number] Initial Review Date: 12/26/2019 Generated: 12/28/19 4:53 pm Comments DCP- Discharge Planning Updated by [id number]: Ct Ayala on 12/27/19 2:[address] PATIENT RETURNED TO [facility] FROM HEMODIALYSIS. HE HAS BEEN DISCHARGED TO HOME. CM SPOKE WITH THE PATIENT. EXPLAINED MY ROLE AND REQUESTED PERMISSION TO PROCEED WITH INITIAL ASSESSMENT. OBTAINED PATIENT CONSENT. HE IS PLANNING DISCHARGE TO HOME. HIS FRIEND WILL BE PROVIDING TRANSPORTATION AT DISCHARGE. COREY VERIFIED CONTACT INFORMATION ON THE FACE SHEET. HIS SISTER, MYRIAM, REMAINS HIS TELETYPEWRITER OPERATOR AND HER NUMBER IS CORRECT. PATIENT IS NOT RECEIVING ANY COMMUNITY OR HOME HEALTH SERVICES. HE HAS NO DME. HE IS ON NASAL O2 AT 2-3 LITERS VIA NASAL CANNULA. HE DOES NOT HAVE OXYGEN AT HOME. COREY SPOKE WITH HIS PRIMARY NURSE, ОЛЬГА, TO CHECK O2 SAT ON RM AIR. PATIENT IS SCHEDULED FOR HD ON MONDAYS AND FRIDAYS AM SHIFT. HE STATES HIS TRANSPORTATION FOR HD IS BY [facility]. PCP- PATIENT IS STILL WITHOUT A PCP. PHARMACY- [facility] PATIENT DENIES ANY NEEDS. PRIMARY NURSE REPORTS O2 SAT 97% AT REST ON ROOM AIR. PLANNING FOR DISCHARGE TODAY. DCP- Discharge Planning Updated by [email or web address]: Dunia Trevino on 12/26/19 8:[address] BOB SERVED, EXPLAINED, AND SIGNED BY PATIENT. THE ORIGINAL WAS PROVIDED TO THE PATIENT AND COPY PLACED ON CHART. DCPIA - Discharge Planning Initial Assessment Updated by [id number]: Ct Ayala on 12/27/19 3:21 pm * Is the patient Alert and Oriented? Yes * How many steps to enter\exit or inside your home? 4-5 / rail * PCP No PCP * Pharmacy [facility] [address] and [facility] * Preadmission Environment Home with Family * ADLs Independent * Equipment None * Other Equipment Denies any DME * List name and contact numbers for known caregivers / representatives who currently or will assist patient after discharge: Myriam Rushing - [facility]- [phone] * Verbal permission to speak to the caregivers and representatives has been obtained from the patient. No * Community resources currently utilized None * Please name any agencies selected above. N/A * Additional services required to return to the preadmission environment? No * Can the patient safely return to the preadmission environment? Yes * Has this patient been hospitalized within the prior 30 days at any hospital? No Coverage Notice Reviewer: [id number] Artemio Trevino Notice Issued Date-Time: 12/26/2019 9:45 Notice Type: Medicare Outpatient Observation Notice Notice Delivered To: Patient Relationship to Patient: Laminator Hand Name: Delivery Method: HAND - Hand Delivered Jeannine Days: Prior Verbal Notification: Recipient Understood Notice: Yes Recipient Signature: Yes Med Rec Note Co-signed by Attending: Coverage Notice Comment: BOB SERVED, EXPLAINED, AND SIGNED BY PATIENT. THE ORIGINAL WAS PROVIDED TO THE PATIENT AND COPY PLACED ON CHART. Last DP export: 12/27/19 2:42 p Patient Name: MIKE RUSHING Page [id number] at 1553 All edits/amendments must be made on the electronic document DICTATION DATE: 12/28/191552 COST RECOVERY TECHNICIAN: KAYCEE 12/28/19 155 RPT#: [id number] DC DATE:12/27/19 STATUS: DIS IN [facility] [address] [place] [address] END OF REPORT
== END 2019-12-27 16:05 | disposition home or self-care (01) | DRG 291 ==
LOC: OBSVTIME → D.ER 04:02 → D.OPS 04:02 → D.M2 05:14 → D.ER 05:14 → D.M2 05:14 → OBSVTIME 05:14 → D.ER 05:39 → D.M2 09:54 → EDSTATUS 11:18 → D.M2 12-27 16:05
PROVIDERS: Family Medicine; Internal Medicine Nephrology; ADMIT Internal Medicine Nephrology; ATTEND Internal Medicine Nephrology
PROC: 5A1D70Z Performance of Urinary Filtration, Intermittent, Less than 6 Hours Per Day (ICD-10-PCS; principal; 2019-12-26)
DX: I13.2 Hypertensive heart and chronic kidney disease with heart failure and with stage 5 chronic kidney disease, or end stage renal disease (principal); N18.6 End stage renal disease; I50.1 Left ventricular failure, unspecified; B20 Human immunodeficiency virus [HIV] disease; Z99.2 Dependence on renal dialysis; Z91.15 Patient's noncompliance with renal dialysis; E87.5 Hyperkalemia; D63.1 Anemia in chronic kidney disease

== ENCOUNTER 2020-01-08 23:47 | Observation (INO) | payer MEDICARE ==
[~2020-01-08] VITALS: Ht 175.3 cm; Wt 63.6 kg
[2020-01-09 00:12] LABS: ANION GAP 14.4 mmol/L (8-16); CALCIUM 9.1 mg/dL (8.5-10.1); CARBON DIOXIDE 26.4 mmol/L (21.0-32.0); CREATININE - SERUM 18.8 mg/dL (0.6-1.3); POTASSIUM - SERUM 5.8 mmol/L (3.5-5.1)
[2020-01-09 00:20] LABS: APTT 31.2 SECONDS (22.8-39.4)
[2020-01-09 00:23] LABS: BASOPHILS 0.1 % (0-2); EOSINOPHILS 1.3 % (0-7); HEMATOCRIT 29.7 % (42.0-54.0); IMMATURE GRANULOCYTES 0.4 % (0-5); INR 0.97 (0.85-1.17); LYMPHOCYTES 24.4 % (15-50); MCH 29.2 pg (26.0-34.0); MCHC 30.3 g/dL (31.0-37.0); MCV 96.4 fL (80.0-100.0); MEAN PLATELET VOLUME 11.2 fL (7.4-10.4); MONOCYTES 5.8 % (2-11); PROTIME 12.8 SECONDS (11.6-15.0); RBC 3.08 10x6/uL (4.20-6.10); RDW 15.8 % (11.5-14.5); WBC 9.4 10x3/uL (4.8-10.8)
[2020-01-09 00:24] LABS: PLATELET COUNT 173 10x3/uL (130-400)
[2020-01-09 00:35] LABS: ALBUMIN 3.6 g/dL (3.4-5.0); BILIRUBIN - TOTAL 0.39 mg/dL (0.2-1.3); CKMB 1.4 U/L (0.0-3.6); PROTEIN - SERUM 7.7 g/dL (6.4-8.2)
[2020-01-09 00:39] LABS: TROPONIN-I 0.069 ng/mL (0.000-0.060)
[2020-01-09 02:43] VITALS: BP 177/94; BMI 24.1
[2020-01-09 06:14] LABS: HEMATOCRIT 31.2 % (42.0-54.0); HEMOGLOBIN 9.7 g/dL (13.5-17.5); LYMPHOCYTES 12.2 % (15-50); MCH 29.4 pg (26.0-34.0); MCHC 31.1 g/dL (31.0-37.0); MCV 94.5 fL (80.0-100.0); MEAN PLATELET VOLUME 10.9 fL (7.4-10.4); NEUTROPHILS 77.9 % (40-80); PLATELET COUNT 161 10x3/uL (130-400); RDW 15.5 % (11.5-14.5); WBC 11.5 10x3/uL (4.8-10.8)
[2020-01-09 06:32] LABS: ALBUMIN 3.4 g/dL (3.4-5.0); ANION GAP 18.7 mmol/L (8-16); BILIRUBIN - TOTAL 0.38 mg/dL (0.2-1.3); CALCIUM 9.4 mg/dL (8.5-10.1); POTASSIUM - SERUM 5.7 mmol/L (3.5-5.1); PROTEIN - SERUM 7.5 g/dL (6.4-8.2)
[2020-01-09 06:35] LABS: TROPONIN-I 0.076 ng/mL (0.000-0.060)
--- NOTE | 2020-01-09 07:09 | NUR ---
ASSESSED AT THE TIME HE CAME FROM THE ER. HE IS ORIENTED BUT HAS HAD VISTARIL AND KEEPS GOING TO SLEEP WHEN ASKED QUESTIONS. HE HAS SLEPT SINCE HIS ADMIT AND HAS NOT REQUESTED ANYTHING.
--- NOTE | 2020-01-09 08:30 | NUR ---
O2 SAT 85% ON OI2 AT 2L VIA NC. PT C/O OF SOB. TURNED O2 UP TO 5L VIA NC AND RAISED HOB 50 DEGREES. O2 SAT NOW 89%-90%. R.T. CALLED. R.T. PLACED PT ON NON REBREATHER. DIEGO PEARSON IN ROOM AND AWARE HSE CALLED AND SPOKE WITH SHON RUEDA IN DIALYSIS AND PT TO GO TO HD FIRST.
--- NOTE | 2020-01-09 08:34 | NUR ---
PT'S BP 180/115. NOTIFIED DIEGO PEARSON AND SHE VERBALIZED UNDERSTANDING.
--- NOTE | 2020-01-09 08:35 | NUR ---
PT WANTS TO EAT BREAKFAST. PLACED ON HIGH FLOW NC BY Sven
[2020-01-09 09:00] VITALS: BP 186/115
--- NOTE | 2020-01-09 09:53 | NUR ---
called to bedside by nursing to a assess patient for SOB and Hypoxia. Spo2-90% on 5 Lpm nasal, RR-32 bpm, Pt tripodding. Placed on 12 lpm HFNC, Spo2 increased to 95% non-rebreather mask at bedside to assist patient with tx to dialysis.
--- NOTE | 2020-01-09 10:22 | NUR ---
PT TAKEN TO DIALYSIS VIA BED.
--- NOTE | 2020-01-09 13:37 | NUR ---
I have reviewed this patient and I concur with the Shift Assessment completed by the Licensed Practical Nurse today this shift.
[2020-01-09 13:50] VITALS: Ht 175.3 cm; Wt 63.6 kg
--- NOTE | 2020-01-09 15:10 | NUR ---
PT RETURNED FROM DIALYSIS VIA BED. ALERT AND ORIENTED. PT STATES HE IS FEELING MUCH BETTER. DIALYSIS STATED TO ME THEY GOT OFF 4L.
--- NOTE | 2020-01-09 16:21 | MORECARE ---
CASE MANAGEMENT DISCHARGE SUMMARY PATIENT: MIKE RUSHING UNIT: [id number] ADM DATE: 01/09/20 AGE: 34 : 87 SEX: M ROOM/BED: D.2109 AUTHOR: DEANDRE AVILA PHYSICIAN: REFERRING PHYSICIAN: VAHE AYERS DO DATE OF SERVICE: 01/09/20 Discharge Plan Patient Name: MIKE RUSHING [facility] [facility] 1985 Planned Disposition: Home Anticipated Discharge Date: Discharge Date: Expected LOS: Initial Reviewer: [email or web address] Initial Review Date: 01/09/2020 Generated: 01/09/20 5:20 pm Comments DCP- Discharge Planning Updated by [email or web address]: Raoul Harrison on 01/09/20 1:[address] Interdisciplinary Team Meeting Note: Patient was admitted on 01-09-2020 with a diagnosis of . Interdisciplinary Team Meetings were held . In attendance were: Fitness Center Attendant Dietary Provider Nursing Physical Therapy Post Acute Occupational Therapy Respiratory Therapy Speech Therapy IDT recommendation for Discharge Plan: NON COMPLIANT DIALYSIS PATIENT. 02 5LITERS, NON REBREATHER. DIALYSIS NOW. Anticipated Discharge date: RAOUL HARRISON CASE MANAGEMENT Patient Name: MIKE RUSHING Page [phone] at 1621 All edits/amendments must be made on the electronic document DICTATION DATE: 01/09/20 162 PAINT BOOTH OPERATOR: KAYCEE 01/09/20 1620 RPT#: [id number] DC DATE: STATUS: ADM IN [facility] [address] [place] [address] END OF REPORT
--- NOTE | 2020-01-09 16:25 | NUR ---
PT WANTING SOMETHING FOR A HEADACHE. CALLED AND SPOKE WITH DIEGO PEARSON AND SHE STATES ORDER TYLENOL 100MG Q6HP. I VERBALIZED UNDERSTANDING.
--- NOTE | 2020-01-09 16:28 | MORECARE ---
CASE MANAGEMENT DISCHARGE SUMMARY PATIENT: MIKE RUSHING UNIT: [id number] ADM DATE: 01/09/20 AGE: 34 : 87 SEX: M ROOM/BED: D.2101 AUTHOR: DEANDRE AVILA PHYSICIAN: REFERRING PHYSICIAN: VAHE AYERS DO DATE OF SERVICE: 01/09/20 Discharge Plan Patient Name: MIKE RUSHING Facility: [facility]:[place] : 1985 Planned Disposition: Home Anticipated Discharge Date: Discharge Date: Expected LOS: Initial Reviewer: [id number] Initial Review Date: 01/09/2020 Generated: 01/09/20 5:28 pm Comments DCP- Discharge Planning Updated by [email or web address]: Raoul Harrison on 01/09/20 3:[address] Patient Name: MIKE RUSHING Admission Status: ER Accout number: [id number] Admission Date: 01-09-2020 : 1985 Admission Diagnosis: Attending: KIARA Current LOS: 1 Anticipated DC Date: Planned Disposition: Home Primary Insurance: MEDICARE A & B Discharge Planning Comments: CM MET WITH PT IN ROOM TO DISCUSS DISCHARGE PLANNING AND NEEDS. PT REPORTS LIVING AT HOME INDEPENDENTLY WITH HIS SISTER. PT HAS NO MEDICAL EQUIPMENT AND NO OUTSIDE SERVICES ASSISTING IN THE HOME. CM DISCUSSED AVAILABILITY OF HOME HEALTH, REHAB SERVICES AND MEDICAL EQUIPMENT. PT DENIES DISCHARGE NEEDS, REPORTS HIS SISTER WILL PICK HIM UP FOR DISCHARGE HOME. PT CURRENTLY GOES TO DIALYSIS ON MONDAYS AND FRIDAYS, [facility], 0845 AM, AND TAKES MEDICAID TRANSPORTATION. PT REPORTS HE IS "TRYING" TO GET A THREE DAY WEEKLY SCHEDULE BECAUSE TWO DAYS IS NOT ENOUGH. PT PLANS TO DISCHARGE HOME WITH SISTER, FAMILY TO TRANSPORT. PT HAS NO ANTICIPATED DISCHARGE NEEDS AT THIS TIME. CM TO FOLLOW AND ASSIST IF NEEDED. Ballaster: Raoul Harrison DCP- Discharge Planning Updated by [email or web address]: Raoul Harrison on 01/09/20 1:[address] Interdisciplinary Team Meeting Note: Patient was admitted on 01-09-2020 with a diagnosis of . Interdisciplinary Team Meetings were held . In attendance were: Ballaster Dietary Provider Nursing Physical Therapy Post Acute Occupational Therapy Respiratory Therapy Speech Therapy IDT recommendation for Discharge Plan: NON COMPLIANT DIALYSIS PATIENT. 02 5LITERS, NON REBREATHER. DIALYSIS NOW. Anticipated Discharge date: RAOUL HARRISON, CASE MANAGEMENT DCPIA - Discharge Planning Initial Assessment Updated by [email or web address]: Raoul Harrison on 01/09/20 4:27 pm * Is the patient Alert and Oriented? Yes * How many steps to enter\\exit or inside your home? 4-5 w/rail * PCP NONE * Pharmacy [facility], [address] * Preadmission Environment Home with Family * ADLs Independent * Equipment None * Other Equipment NO MEDICAL EQUIPMENT PROVIDER PREFERENCE * List name and contact numbers for known caregivers / representatives who currently or will assist patient after discharge: MYRIAM RUSHING, SISTER, * Verbal permission to speak to the caregivers and representatives has been obtained from the patient. N/A * Community resources currently utilized Other * Please name any agencies selected above. OUTPATIENT DIALYSIS, SUNDAY AND SUNDAY, 0845 AM, MEDICAID TRANSPORTATION * Additional services required to return to the preadmission environment? No * Can the patient safely return to the preadmission environment? Yes * Has this patient been hospitalized within the prior 30 days at any hospital? Yes Last DP export: 01/09/20 3:21 pm Patient Name: MIKE RUSHING Page 10647 at 1628 All edits/amendments must be made on the electronic document DICTATION DATE: 01/09/201627 MENTAL HEALTH PROGRAM MANAGER: KAYCEE 01/09/201627 RPT#: [id number] DC DATE: STATUS: ADM IN [facility] [address] [place] [address] END OF REPORT
--- NOTE | 2020-01-09 19:10 | NUR ---
BEDSIDE REPORT RECEIVED, PT CARE ASSUMED. WROTE NAME ON BOARD, PT SITTING UP IN BED WATCHING TV, AAOX4. DENIES ANY NEEDS AT THIS TIME. BED IN LOWEST POSITION, SR X1, CALL LIGHT WITHIN REACH. WILL CONTINUE TO MONITOR.
[2020-01-09 20:30] VITALS: BP 162/103
--- NOTE | 2020-01-09 20:54 | MORECARE ---
CASE MANAGEMENT DISCHARGE SUMMARY PATIENT: MIKE RUSHING UNIT: [id number] ADM DATE: 01/09/20 AGE: 34 : 87 SEX: M ROOM/BED: D.210 AUTHOR: MARGARITA,DOC PHYSICIAN: REFERRING PHYSICIAN: VAHE AYERS DO DATE OF SERVICE: 01/09/20 Discharge Plan Patient Name: MIKE RUSHING Facility: [facility]:[place] : 1985 Planned Disposition: Home Anticipated Discharge Date: Discharge Date: Expected LOS: Initial Reviewer: [id number] Initial Review Date: 01/09/2020 Generated: 01/09/20 9:54 pm Comments DCP- Discharge Planning Updated by [email or web address]: Rain Mosqueda on 01/09/20 7:[address] CM DELIVERED AND EXPLAINED BOB SIGNED 01/09/20 @ 2039 DCP- Discharge Planning Updated by [id number]: Raoul Harrison on 01/09/20 3:[address] Patient Name: MIKE RUSHING Admission Status: ER Accout number: [id number] Admission Date: 01-09-2020 : 1985 Admission Diagnosis: Attending: KIARA Current LOS: 1 Anticipated DC Date: Planned Disposition: Home Primary Insurance: MEDICARE A & B Discharge Planning Comments: CM MET WITH PT IN ROOM TO DISCUSS DISCHARGE PLANNING AND NEEDS. PT REPORTS LIVING AT HOME INDEPENDENTLY WITH HIS SISTER. PT HAS NO MEDICAL EQUIPMENT AND NO OUTSIDE SERVICES ASSISTING IN THE HOME. CM DISCUSSED AVAILABILITY OF HOME HEALTH, REHAB SERVICES AND MEDICAL EQUIPMENT. PT DENIES DISCHARGE NEEDS, REPORTS HIS SISTER WILL PICK HIM UP FOR DISCHARGE HOME. PT CURRENTLY GOES TO DIALYSIS ON MONDAYS AND FRIDAYS, [facility], 0845 AM, AND TAKES MEDICAID TRANSPORTATION. PT REPORTS HE IS "TRYING" TO GET A THREE DAY WEEKLY SCHEDULE BECAUSE TWO DAYS IS NOT ENOUGH. PT PLANS TO DISCHARGE HOME WITH SISTER, FAMILY TO TRANSPORT. PT HAS NO ANTICIPATED DISCHARGE NEEDS AT THIS TIME. CM TO FOLLOW AND ASSIST IF NEEDED. Venereal Disease Investigator: Raoul Harrison DCP- Discharge Planning Updated by [email or web address]: Raoul Harrison on 01/09/20 1:[address] Interdisciplinary Team Meeting Note: Patient was admitted on 01-09-2020 with a diagnosis of . Interdisciplinary Team Meetings were held . In attendance were: Venereal Disease Investigator Dietary Provider Nursing Physical Therapy Post Acute Occupational Therapy Respiratory Therapy Speech Therapy IDT recommendation for Discharge Plan: NON COMPLIANT DIALYSIS PATIENT. 02 5LITERS, NON REBREATHER. DIALYSIS NOW. Anticipated Discharge date: RAOUL HARRISON, CASE MANAGEMENT DCPIA - Discharge Planning Initial Assessment Updated by [email or web address]: Raoul Harrison on 01/09/20 4:27 pm * Is the patient Alert and Oriented? Yes * How many steps to enter\\exit or inside your home? 4-5 w/rail * PCP NONE * Pharmacy [facility], [address] * Preadmission Environment Home with Family * ADLs Independent * Equipment None * Other Equipment NO MEDICAL EQUIPMENT PROVIDER PREFERENCE * List name and contact numbers for known caregivers / representatives who currently or will assist patient after discharge: MYRIAM RUSHING, SISTER, * Verbal permission to speak to the caregivers and representatives has been obtained from the patient. N/A * Community resources currently utilized Other * Please name any agencies selected above. OUTPATIENT DIALYSIS, SUNDAY AND SUNDAY, 0845 AM, MEDICAID TRANSPORTATION * Additional services required to return to the preadmission environment? No * Can the patient safely return to the preadmission environment? Yes * Has this patient been hospitalized within the prior 30 days at any hospital? Yes Coverage Notice Reviewer: [id number] Artemio Mosqueda Notice Issued Date-Time: 01/09/2020 20:48 Notice Type: Medicare Outpatient Observation Notice Notice Delivered To: Patient Relationship to Patient: Self Granite Countertop Installer Name: Delivery Method: - Jeannine Days: Prior Verbal Notification: Recipient Understood Notice: Recipient Signature: Med Rec Note Co-signed by Attending: Coverage Notice Comment: Last DP export: 01/09/20 3:28 pm Patient Name: MIKE RUSHING Page 15832 at 2053 All edits/amendments must be made on the electronic document DICTATION DATE: 01/09/202053 LIGHT RAIL TRAIN OPERATOR: KAYCEE 01/09/202053 RPT#: [id number] DC DATE: STATUS: ADM IN [facility] [address] [place] [address] END OF REPORT
--- NOTE | 2020-01-09 23:05 | NUR ---
PT REFUSING TELEMETRY, STATES, "IT'S IRRITATING MY SKIN."
[2020-01-10] VITALS: BP 178/112
--- NOTE | 2020-01-10 02:15 | NUR ---
PT VOMITED 900 ML FOOD CHUNKS AND FLUID, STATES, "I GET SICK EVERY TIME I HAVE DIALYSIS." REQUESTING 2 ORANGE SHERBERT, PROVIDED. DENIES ANY OTHER NEEDS AT THIS TIME. BED IN LOWEST POSITION, SR X1, CALL LIGHT WITHIN REACH. WILL CONTINUE TO MONITOR.
[2020-01-10 04:36] LABS: BASOPHILS 0.1 % (0-2); EOSINOPHILS 1.6 % (0-7); HEMATOCRIT 33.2 % (42.0-54.0); IMMATURE GRANULOCYTES 0.1 % (0-5); LYMPHOCYTES 23.4 % (15-50); MCH 29.3 pg (26.0-34.0); MCHC 30.1 g/dL (31.0-37.0); MEAN PLATELET VOLUME 10.6 fL (7.4-10.4); NEUTROPHILS 67.8 % (40-80); PLATELET COUNT 176 10x3/uL (130-400); RBC 3.41 10x6/uL (4.20-6.10); RDW 15.9 % (11.5-14.5)
[2020-01-10 04:43] LABS: MCV 97.4 fL (80.0-100.0); WBC 7.3 10x3/uL (4.8-10.8)
[2020-01-10 04:49] LABS: ANION GAP 13.3 mmol/L (8-16); CALCIUM 9.5 mg/dL (8.5-10.1); CARBON DIOXIDE 28.8 mmol/L (21.0-32.0); CREATININE - SERUM 13.6 mg/dL (0.6-1.3); POTASSIUM - SERUM 5.1 mmol/L (3.5-5.1)
--- NOTE | 2020-01-10 11:12 | NUR ---
PT ESCORTED OUT VIA WHEELCHAIR TO [facility].
--- NOTE | 2020-01-10 13:54 | MORECARE ---
CASE MANAGEMENT DISCHARGE SUMMARY PATIENT: MIKE RUSHING UNIT: [id number] ADM DATE: 01/09/20 AGE: 34 : 89 SEX: M ROOM/BED: D.6089 AUTHOR: MARGARITA,DOC PHYSICIAN: REFERRING PHYSICIAN: VAHE AYERS DO DATE OF SERVICE: 01/10/20 Discharge Plan Patient Name: MIKE RUSHING Facility: [facility]:[place] : 1985 Planned Disposition: Home Anticipated Discharge Date: Discharge Date: 01/10/2020 Expected LOS: Initial Reviewer: [id number] Initial Review Date: 01/09/2020 Generated: 01/10/20 2:53 pm Comments DCP- Discharge Planning Updated by [email or web address]: Rain Mosqueda on 01/09/20 7:[address] CM DELIVERED AND EXPLAINED BOB SIGNED 01/09/20 @ 2039 DCP- Discharge Planning Updated by [email or web address]: Raoul Harrison on 01/09/20 3:[address] Patient Name: MIKE RUSHING Admission Status: ER Accout number: [id number] Admission Date: 01-09-2020 : 1985 Admission Diagnosis: Attending: KIARA Current LOS: 1 Anticipated DC Date: Planned Disposition: Home Primary Insurance: MEDICARE A & B Discharge Planning Comments: CM MET WITH PT IN ROOM TO DISCUSS DISCHARGE PLANNING AND NEEDS. PT REPORTS LIVING AT HOME INDEPENDENTLY WITH HIS SISTER. PT HAS NO MEDICAL EQUIPMENT AND NO OUTSIDE SERVICES ASSISTING IN THE HOME. CM DISCUSSED AVAILABILITY OF HOME HEALTH, REHAB SERVICES AND MEDICAL EQUIPMENT. PT DENIES DISCHARGE NEEDS, REPORTS HIS SISTER WILL PICK HIM UP FOR DISCHARGE HOME. PT CURRENTLY GOES TO DIALYSIS ON MONDAYS AND FRIDAYS, [facility], 0845 AM, AND TAKES MEDICAID TRANSPORTATION. PT REPORTS HE IS "TRYING" TO GET A THREE DAY WEEKLY SCHEDULE BECAUSE TWO DAYS IS NOT ENOUGH. PT PLANS TO DISCHARGE HOME WITH SISTER, FAMILY TO TRANSPORT. PT HAS NO ANTICIPATED DISCHARGE NEEDS AT THIS TIME. CM TO FOLLOW AND ASSIST IF NEEDED. Detective Narcotics And Vice: Raoul Harrison DCP- Discharge Planning Updated by [id number]: Raoul Harrison on 01/09/20 1:[address] Interdisciplinary Team Meeting Note: Patient was admitted on 01-09-2020 with a diagnosis of . Interdisciplinary Team Meetings were held . In attendance were: Detective Narcotics And Vice Dietary Provider Nursing Physical Therapy Post Acute Occupational Therapy Respiratory Therapy Speech Therapy IDT recommendation for Discharge Plan: NON COMPLIANT DIALYSIS PATIENT. 02 5LITERS, NON REBREATHER. DIALYSIS NOW. Anticipated Discharge date: RAOUL HARRISON, CASE MANAGEMENT DCPIA - Discharge Planning Initial Assessment Updated by [email or web address]: Raoul Harrison on 01/09/20 4:27 pm * Is the patient Alert and Oriented? Yes * How many steps to enter\\exit or inside your home? 4-5 w/rail * PCP NONE * Pharmacy [facility], [address] * Preadmission Environment Home with Family * ADLs Independent * Equipment None * Other Equipment NO MEDICAL EQUIPMENT PROVIDER PREFERENCE * List name and contact numbers for known caregivers / representatives who currently or will assist patient after discharge: MYRIAM RUSHING, , * Verbal permission to speak to the caregivers and representatives has been obtained from the patient. N/A * Community resources currently utilized Other * Please name any agencies selected above. OUTPATIENT DIALYSIS, SUNDAY AND SUNDAY, 0845 AM, MEDICAID TRANSPORTATION * Additional services required to return to the preadmission environment? No * Can the patient safely return to the preadmission environment? Yes * Has this patient been hospitalized within the prior 30 days at any hospital? Yes Coverage Notice Reviewer: [id number] Artemio Mosqueda Notice Issued Date-Time: 01/09/2020 20:48 Notice Type: Medicare Outpatient Observation Notice Notice Delivered To: Patient Relationship to Patient: Self Mill Tender Washing Name: Delivery Method: - Jeannine Days: Prior Verbal Notification: Recipient Understood Notice: Recipient Signature: Med Rec Note Co-signed by Attending: Coverage Notice Comment: Last DP export: 01/09/20 7:54 pm Patient Name: MIKE RUSHING Page 12509 at 1354 All edits/amendments must be made on the electronic document DICTATION DATE: 01/10/20 1353 YARD MANAGER: KAYCEE 01/10/20 1353 RPT#: [id number] DC DATE:01/10/20 STATUS: DIS IN [facility] [address] [place] [address] END OF REPORT
== END 2020-01-10 11:47 | disposition home or self-care (01) ==
LOC: D.ER 23:47 → D.M2 01-09 00:54 → OBSVTIME 01-09 00:54 → D.M2 01-09 00:54 → D.SDCHOLD 01-09 14:02 → D.M2 01-10 11:47
PROVIDERS: Family Medicine; Internal Medicine Nephrology; ADMIT Internal Medicine; ATTEND Internal Medicine
DX: I13.2 Hypertensive heart and chronic kidney disease with heart failure and with stage 5 chronic kidney disease, or end stage renal disease (principal); N18.6 End stage renal disease; I50.9 Heart failure, unspecified; Z99.2 Dependence on renal dialysis; B20 Human immunodeficiency virus [HIV] disease; E87.5 Hyperkalemia; Z72.0 Tobacco use; K21.9 Gastro-esophageal reflux disease without esophagitis